=== PATIENT | male | born 1970 | race Caucasian/White ===

== ENCOUNTER 2017-09-25 21:22 | Emergency (ER) | payer SELFPAY ==
[~2017-09-25] VITALS: Ht 185.4 cm; Wt 106.6 kg
--- OUTSIDE RECORDS SUMMARY | 2017-09-25 21:28 | XMS REPORT ---
Author Author MANJIT SANTANA [facility] Address [address] [place] [address] Care Team Providers Care Email Manager Name Role Phone MANJIT SANTANA Unavailable PROBLEMS Type Condition ICD9-CM Code [id number] Code Onset Dates Condition Status SNOMED Code Problem Cramp of limb 729.82 Active 112876788 Problem Unspecified disorders of bursae and tendons in shoulder region 726.10 Active 82007726 Problem Lumbago 724.2 Active 083111291 Problem Anxiety state, unspecified 300.00 Active 823013191 Problem Nondependent tobacco use disorder 305.1 Active 608411444 Problem Acute upper respiratory infections of unspecified site 465.9 Active 45660590 Problem Unspecified backache 724.5 Active 658221365 Problem Depressive disorder, not elsewhere classified 311 Active 25735724 Problem Essential hypertension, benign 401.1 Active 7815789 Problem DTAP TEST V06.1 Active Problem Other, multiple, and unspecified sites, insect bite, nonvenomous, infected 919.5 Active 586412292 Problem Counseling for marital and partner problems, unspecified V61.10 Active 32746343 Problem Flat foot 734 Active 03842034 Problem Unspecified neuralgia, neuritis, and radiculitis 729.2 Active 53242991 Problem Headache 784.0 Active 79415081 Problem Cervicalgia 723.1 Active 52879566 Problem Other malaise and fatigue 780.79 Active 704146312 Problem Pain in joint, shoulder region 719.41 Active 328443137 ALLERGIES Unknown Allergies SOCIAL HISTORY No smoking Hx information available PLAN OF CARE VITAL SIGNS MEDICATIONS Unknown Medications RESULTS No Results PROCEDURES No Known procedures IMMUNIZATIONS No Known Immunizations
--- OUTSIDE RECORDS SUMMARY | 2017-09-25 21:28 | XMS REPORT ---
Author Author ESTELA CHEEMA Organization [employer] Address Unknown Phone Unavailable Care Team Providers Care Food Concession Manager Name Role Phone ESTELA CHEEMA CP Unavailable Allergies No Known Allergies Problems Problem Type Condition Code Onset Dates Condition Status Problem Flat foot 734 Active Problem Unspecified backache 724.5 Active Problem DTAP TEST V06.1 Active Problem Counseling for marital and partner problems, unspecified V61.10 Active Problem Other, multiple, and unspecified sites, insect bite, nonvenomous, infected 919.5 Active Problem Depressive disorder, not elsewhere classified 311 Active Problem Acute upper respiratory infections of unspecified site 465.9 Active Problem Unspecified neuralgia, neuritis, and radiculitis 729.2 Active Problem Anxiety state, unspecified 300.00 Active Problem Essential hypertension, benign 401.1 Active Problem Cervicalgia 723.1 Active Problem Headache 784.0 Active Assessment Generalized anxiety disorder F41.1 Active Problem Pain in joint, shoulder region 719.41 Active Problem Lumbago 724.2 Active Problem Unspecified disorders of bursae and tendons in shoulder region 726.10 Active Problem Nondependent tobacco use disorder 305.1 Active Problem Other malaise and fatigue 780.79 Active Problem Cramp of limb 729.82 Active Medications No Known Medications Procedures Procedure Coding System Code Date Psych diagnostic evaluation, established patient CPT-4 32974 Mar 17, 2016 Results No Known Results Summary Purpose [employer] Submission
--- OUTSIDE RECORDS SUMMARY | 2017-09-25 21:29 | XMS REPORT | Continuity of Care Document ---
Author Author [facility] Organization [facility] Address Unknown Phone Unavailable Allergies Active Description Code Type Severity Reaction Onset Reported/Identified Relationship to Patient Clinical Status Yes No Known Drug Allergies [id number] Drug Allergy Unknown N/A 05/06/2008 Yes Soma Drug Allergy 10/26/2011 Yes Soma Drug Allergy N/A N/A 10/26/2011 Medications There is no data. Problems Date Dx Coded Attending Type Code Diagnosis Diagnosed By 10/14/2011 MANJIT SANTANA APRN 465.9 UPPER RESPIRATORY INFECTION 10/14/2011 MANJIT SANTANA APRN 724.5 BACKACHE 10/14/2011 MANJIT SANTANA APRN 729.2 RADICULOPATHY 10/14/2011 CHYNA JOSE DO 465.9 UPPER RESPIRATORY INFECTION 10/14/2011 JOSE CHYNA CHAVES K 724.5 BACKACHE 10/14/2011 CHYNA JOSE DO 729.2 RADICULOPATHY 10/14/2011 465.9 UPPER RESPIRATORY INFECTION 10/14/2011 724.5 BACKACHE 10/14/2011 729.2 RADICULOPATHY 10/14/2011 465.9 UPPER RESPIRATORY INFECTION 10/14/2011 724.5 BACKACHE 10/14/2011 729.2 RADICULOPATHY 10/14/2011 465.9 UPPER RESPIRATORY INFECTION 10/14/2011 724.5 BACKACHE 10/14/2011 729.2 RADICULOPATHY 10/14/2011 CHYNA JOSE DO 465.9 UPPER RESPIRATORY INFECTION 10/14/2011 CHYNA JOSE DO K 724.5 BACKACHE 10/14/2011 CHYNA JOSE DO K 729.2 RADICULOPATHY 10/14/2011 CHYNA JOSE DO K 465.9 UPPER RESPIRATORY INFECTION 10/14/2011 JOSE CHYNA CHAVES K 724.5 BACKACHE 10/14/2011 JOSE DO, CHYNA K 729.2 RADICULOPATHY 10/14/2011 ESTHER WAITSTAFF CAPTAIN, MANJIT S 465.9 UPPER RESPIRATORY INFECTION 10/14/2011 ESTHER WAITSTAFF CAPTAIN, MANJIT S 724.5 BACKACHE 10/14/2011 ESTHER WAITSTAFF CAPTAIN, MANJIT S 729.2 RADICULOPATHY 10/14/2011 TIAN CASHERO WAITSTAFF CAPTAIN, BRIDGER N 465.9 UPPER RESPIRATORY INFECTION 10/14/2011 TIAN CASHERO WAITSTAFF CAPTAIN, BRIDGER N 724.5 BACKACHE 10/14/2011 TIAN CASHERO WAITSTAFF CAPTAIN, BRIDGER N 729.2 RADICULOPATHY 10/14/2011 JOSE DO, CHYNA K 465.9 UPPER RESPIRATORY INFECTION 10/14/2011 JOSE DO, CHYNA K 724.5 BACKACHE 10/14/2011 JOSE DO, CHYNA K 729.2 RADICULOPATHY 10/14/2011 JOSE DO, CHYNA K 465.9 UPPER RESPIRATORY INFECTION 10/14/2011 JOSE DO, CHYNA K 724.5 BACKACHE 10/14/2011 JOSE DO, CHYNA K 729.2 RADICULOPATHY 10/14/2011 ESTHER WAITSTAFF CAPTAIN, MANJIT S 465.9 UPPER RESPIRATORY INFECTION 10/14/2011 ESTHER WAITSTAFF CAPTAIN, MANJIT S 724.5 BACKACHE 10/14/2011 ESTHER WAITSTAFF CAPTAIN, MANJIT S 729.2 RADICULOPATHY 10/14/2011 LUIS M EUGENE APRN 465.9 UPPER RESPIRATORY INFECTION 10/14/2011 LUIS M EUGENE APRN 724.5 BACKACHE 10/14/2011 LUIS M EUGENE APRN 729.2 RADICULOPATHY 10/14/2011 ESTHER WAITSTAFF CAPTAIN, MANJIT S 465.9 UPPER RESPIRATORY INFECTION 10/14/2011 ESTHER WAITSTAFF CAPTAIN, MANJIT S 724.5 BACKACHE 10/14/2011 ESTHER WAITSTAFF CAPTAIN, MANJIT S 729.2 RADICULOPATHY 10/14/2011 JOSE DO, CHYNA K 465.9 UPPER RESPIRATORY INFECTION 10/14/2011 JOSE DO, CHYNA K 724.5 BACKACHE 10/14/2011 JOSE DO, CHYNA K 729.2 RADICULOPATHY 10/14/2011 LUIS M EUGENE APRN 465.9 UPPER RESPIRATORY INFECTION 10/14/2011 LUIS M EUGENE APRN 724.5 BACKACHE 10/14/2011 LUIS M EUGENE APRN 729.2 RADICULOPATHY 10/14/2011 LUIS M EUGENE APRN 465.9 UPPER RESPIRATORY INFECTION 10/14/2011 LUIS M EUGENE APRN 724.5 BACKACHE 10/14/2011 LUIS M EUGENE APRN 729.2 RADICULOPATHY 10/26/2011 MANJIT SANTANA APRN 719.41 PAIN IN JOINT INVOLVING SHOULDER REGION 10/26/2011 CHYNA JOSE DO K 719.41 PAIN IN JOINT INVOLVING SHOULDER REGION 10/26/2011 719.41 PAIN IN JOINT INVOLVING SHOULDER REGION 10/26/2011 719.41 PAIN IN JOINT INVOLVING SHOULDER REGION 10/26/2011 719.41 PAIN IN JOINT INVOLVING SHOULDER REGION 10/26/2011 CHYNA JOSE DO K 719.41 PAIN IN JOINT INVOLVING SHOULDER REGION 10/26/2011 CHYNA JOSE DO K 719.41 PAIN IN JOINT INVOLVING SHOULDER REGION 10/26/2011 MANJIT SANTANA APRN S 719.41 PAIN IN JOINT INVOLVING SHOULDER REGION 10/26/2011 BRIDGER FERNANDEZ APRN 719.41 PAIN IN JOINT INVOLVING SHOULDER REGION 10/26/2011 CHYNA JOSE DO K 719.41 PAIN IN JOINT INVOLVING SHOULDER REGION 10/26/2011 CHYNA JOSE DO K 719.41 PAIN IN JOINT INVOLVING SHOULDER REGION 10/26/2011 MANJIT SANTANA APRN S 719.41 PAIN IN JOINT INVOLVING SHOULDER REGION 10/26/2011 LUIS M EUGENE APRN 719.41 PAIN IN JOINT INVOLVING SHOULDER REGION 10/26/2011 MANJIT SANTANA APRN S 719.41 PAIN IN JOINT INVOLVING SHOULDER REGION 10/26/2011 CHYNA JOSE DO K 719.41 PAIN IN JOINT INVOLVING SHOULDER REGION 10/26/2011 LUIS M EUGENE APRN 719.41 PAIN IN JOINT INVOLVING SHOULDER REGION 10/26/2011 LUIS M EUGENE APRN 719.41 PAIN IN JOINT INVOLVING SHOULDER REGION 01/17/2012 MANJIT SANTANA APRN S 729.82 CRAMP OF LIMB 01/17/2012 ESTHER MORGAN, MANJIT S 734 FLAT FOOT 01/17/2012 JOSE DO, CHYNA K 729.82 CRAMP OF LIMB 01/17/2012 JOSE DO, CHYNA K 734 FLAT FOOT 01/17/2012 729.82 CRAMP OF LIMB 01/17/2012 734 FLAT FOOT 01/17/2012 729.82 CRAMP OF LIMB 01/17/2012 734 FLAT FOOT 01/17/2012 729.82 CRAMP OF LIMB 01/17/2012 734 FLAT FOOT 01/17/2012 JOSE DO, CHYNA K 729.82 CRAMP OF LIMB 01/17/2012 JOSE DO, CHYNA K 734 FLAT FOOT 01/17/2012 JOSE DO, CHYNA K 729.82 CRAMP OF LIMB 01/17/2012 JOSE DO, CHYNA K 734 FLAT FOOT 01/17/2012 ESTHER MORGAN, MANJIT S 729.82 CRAMP OF LIMB 01/17/2012 ESTHER MORGAN, MANJIT S 734 FLAT FOOT 01/17/2012 TIAN CASHERO WAITSTAFF CAPTAIN, BRIDGER N 729.82 CRAMP OF LIMB 01/17/2012 TIAN CASHERO WAITSTAFF CAPTAIN, BRIDGER N 734 FLAT FOOT 01/17/2012 JOSE DO, CHYNA K 729.82 CRAMP OF LIMB 01/17/2012 JOSE DO, CHYNA K 734 FLAT FOOT 01/17/2012 JOSE DO, CHYNA K 729.82 CRAMP OF LIMB 01/17/2012 JOSE DO, CHYNA K 734 FLAT FOOT 01/17/2012 ESTHER MORGAN, MANJIT S 729.82 CRAMP OF LIMB 01/17/2012 ESTHER BOSEN MANJIT S 734 FLAT FOOT 01/17/2012 EUGENE WAITSTAFF CAPTAINALEXANDREA SanchesON D 729.82 CRAMP OF LIMB 01/17/2012 JABIER MORGAN LUIS M D 734 FLAT FOOT 01/17/2012 ESTHER MORGAN MANJIT S 729.82 CRAMP OF LIMB 01/17/2012 ESTHER WAITSTAFF CAPTAIN, MANJIT S 734 FLAT FOOT 01/17/2012 JOSE DO, CHYNA K 729.82 CRAMP OF LIMB 01/17/2012 JOSE DO, CHYNA K 734 FLAT FOOT 01/17/2012 LUIS M EUGENE APRN 729.82 CRAMP OF LIMB 01/17/2012 LUIS M EUGENE APRN 734 FLAT FOOT 01/17/2012 LUIS M EUGENE APRN 729.82 CRAMP OF LIMB 01/17/2012 LUIS M EUGENE APRN 734 FLAT FOOT 03/23/2012 ESTHER MORGAN MANJIT S 723.1 CERVICALGIA 03/23/2012 ANANT SANTANA APRNNDA S 784.0 HEADACHE 03/23/2012 JOSE DO, CHYNA K 723.1 CERVICALGIA 03/23/2012 JOSE DO, CHYNA K 784.0 HEADACHE 03/23/2012 723.1 CERVICALGIA 03/23/2012 784.0 HEADACHE 03/23/2012 723.1 CERVICALGIA 03/23/2012 784.0 HEADACHE 03/23/2012 723.1 CERVICALGIA 03/23/2012 784.0 HEADACHE 03/23/2012 JOSE DO, CHYNA K 723.1 CERVICALGIA 03/23/2012 JOSE DO, CHYNA K 784.0 HEADACHE 03/23/2012 JOSE DO, CHYNA K 723.1 CERVICALGIA 03/23/2012 JSOE DO, CHYNA K 784.0 HEADACHE 03/23/2012 ESTHER MORGAN, MANJIT S 723.1 CERVICALGIA 03/23/2012 ESTHER MORGAN MANJIT S 784.0 HEADACHE 03/23/2012 JAYLAN BRANDT APRN, BRIDGER N 723.1 CERVICALGIA 03/23/2012 JAYLAN BRANDT APRN BRIDGER N 784.0 HEADACHE 03/23/2012 JOSE DO, CHYNA K 723.1 CERVICALGIA 03/23/2012 JOSE DO, CHYNA K 784.0 HEADACHE 03/23/2012 JOSE DO, CHYNA K 723.1 CERVICALGIA 03/23/2012 JOSE DO, CHYNA K 784.0 HEADACHE 03/23/2012 ESTHER MORGAN MANJIT S 723.1 CERVICALGIA 03/23/2012 ESTHER MORGAN MANJIT S 784.0 HEADACHE 03/23/2012 LUIS M EUGENE APRN 723.1 CERVICALGIA 03/23/2012 LUIS M EUGENE APRN 784.0 HEADACHE 03/23/2012 ESTHER MORGAN MANJIT S 723.1 CERVICALGIA 03/23/2012 ESTHER MORGAN MANJIT S 784.0 HEADACHE 03/23/2012 JOSE DO, CHYNA K 723.1 CERVICALGIA 03/23/2012 JOSE DO, CHYNA K 784.0 HEADACHE 03/23/2012 EUGENE WAITSTAFF CAPTAIN, LUIS M D 723.1 CERVICALGIA 03/23/2012 EUGENE WAITSTAFF CAPTAIN, LUIS M D 784.0 HEADACHE 03/23/2012 EUGENE WAITSTAFF CAPTAIN, LUIS M D 723.1 CERVICALGIA 03/23/2012 EUGENE WAITSTAFF CAPTAIN, LUIS M D 784.0 HEADACHE 08/15/2012 ANANT SANTANA APRNNDA S 300.00 ANXIETY STATE UNSPECIFIED 08/15/2012 ESTHER MORGAN MANJIT S 401.1 HYPERTENSION, BENIGN ESSENTIAL 08/15/2012 JOSE DO, CHYNA K 300.00 ANXIETY STATE UNSPECIFIED 08/15/2012 JOSE DO, CHYNA K 401.1 HYPERTENSION, BENIGN ESSENTIAL 08/15/2012 300.00 ANXIETY STATE UNSPECIFIED 08/15/2012 401.1 HYPERTENSION, BENIGN ESSENTIAL 08/15/2012 300.00 ANXIETY STATE UNSPECIFIED 08/15/2012 401.1 HYPERTENSION, BENIGN ESSENTIAL 08/15/2012 300.00 ANXIETY STATE UNSPECIFIED 08/15/2012 401.1 HYPERTENSION, BENIGN ESSENTIAL 08/15/2012 JOSE DO, CHYNA K 300.00 ANXIETY STATE UNSPECIFIED 08/15/2012 JOSE DO, CHYNA K 401.1 HYPERTENSION, BENIGN ESSENTIAL 08/15/2012 JOSE DO, CHYNA K 300.00 ANXIETY STATE UNSPECIFIED 08/15/2012 JOSE DO, CHYNA K 401.1 HYPERTENSION, BENIGN ESSENTIAL 08/15/2012 ESTHER MORGAN MANJIT S 300.00 ANXIETY STATE UNSPECIFIED 08/15/2012 ANANT SANTANA APRNNDA S 401.1 HYPERTENSION, BENIGN ESSENTIAL 08/15/2012 TIAN CASHERO WAITSTAFF CAPTAIN, BRIDGER N 300.00 ANXIETY STATE UNSPECIFIED 08/15/2012 TIAN CASHERO WAITSTAFF CAPTAIN, BRIDGER N 401.1 HYPERTENSION, BENIGN ESSENTIAL 08/15/2012 JOSE DO, CHYNA K 300.00 ANXIETY STATE UNSPECIFIED 08/15/2012 JOSE DO, CHYNA K 401.1 HYPERTENSION, BENIGN ESSENTIAL 08/15/2012 JOSE DO, CHYNA K 300.00 ANXIETY STATE UNSPECIFIED 08/15/2012 JOSE DO, CHYNA K 401.1 HYPERTENSION, BENIGN ESSENTIAL 08/15/2012 ESTHER WAITSTAFF CAPTAIN, MANJIT S 300.00 ANXIETY STATE UNSPECIFIED 08/15/2012 ESTHER WAITSTAFF CAPTAIN, MANJIT S 401.1 HYPERTENSION, BENIGN ESSENTIAL 08/15/2012 ALEXANDREA EUGENE APRNON D 300.00 ANXIETY STATE UNSPECIFIED 08/15/2012 ALEXANDREA EUGENE APRNON D 401.1 HYPERTENSION, BENIGN ESSENTIAL 08/15/2012 ESTHER WAITSTAFF CAPTAIN, MANJIT S 300.00 ANXIETY STATE UNSPECIFIED 08/15/2012 ESTHER WAITSTAFF CAPTAIN MANJIT S 401.1 HYPERTENSION, BENIGN ESSENTIAL 08/15/2012 JOSE DO, CHYNA K 300.00 ANXIETY STATE UNSPECIFIED 08/15/2012 JOSE DO, CHYNA K 401.1 HYPERTENSION, BENIGN ESSENTIAL 08/15/2012 ALEXANDREA EUGENE APRNON D 300.00 ANXIETY STATE UNSPECIFIED 08/15/2012 LUIS M EUGENE APRN 401.1 HYPERTENSION, BENIGN ESSENTIAL 08/15/2012 ALEXANDREA EUGENE APRNON D 300.00 ANXIETY STATE UNSPECIFIED 08/15/2012 ALEXANDREA EUGENE APRNON D 401.1 HYPERTENSION, BENIGN ESSENTIAL 09/06/2012 311 DEPRESSIVE DISORDER NOS 09/06/2012 V61.10 RL RELATION COUNS 09/06/2012 311 DEPRESSIVE DISORDER NOS 09/06/2012 V61.10 RL RELATION COUNS 09/06/2012 311 DEPRESSIVE DISORDER NOS 09/06/2012 V61.10 RL RELATION COUNS 09/06/2012 JOSE DO, CHYNA K 311 DEPRESSIVE DISORDER NOS 09/06/2012 JOSE DO, CHYNA K V61.10 RL RELATION COUNS 09/06/2012 JOSE DO, CHYNA K 311 DEPRESSIVE DISORDER NOS 09/06/2012 JOSE DO, CHYNA K V61.10 RL RELATION COUNS 09/06/2012 ESTHER WAITSTAFF CAPTAIN, MANJIT S 311 DEPRESSIVE DISORDER NOS 09/06/2012 ESTHER WAITSTAFF CAPTAIN, MANJIT S V61.10 RL RELATION COUNS 09/06/2012 PETER FERNANDEZ APRNCY N 311 DEPRESSIVE DISORDER NOS 09/06/2012 TIANTANNA BRANDT APRN, BRIDGER N V61.10 RL RELATION COUNS 09/06/2012 JOSE DO, CHYNA K 311 DEPRESSIVE DISORDER NOS 09/06/2012 JOSE DO, CHYNA K V61.10 RL RELATION COUNS 09/06/2012 JOSE DO, CHYNA K 311 DEPRESSIVE DISORDER NOS 09/06/2012 JOSE DO, CHYNA K V61.10 RL RELATION COUNS 09/06/2012 ANANT SANTANA APRNNDA S 311 DEPRESSIVE DISORDER NOS 09/06/2012 ESTHER MORGAN MANJIT S V61.10 RL RELATION COUNS 09/06/2012 LUIS M EUGENE APRN 311 DEPRESSIVE DISORDER NOS 09/06/2012 LUIS M EUGENE APRN V61.10 RL RELATION COUNS 09/06/2012 ANANT SANTANA APRNNDA S 311 DEPRESSIVE DISORDER NOS 09/06/2012 ESTHER MORGAN MANJIT S V61.10 RL RELATION COUNS 09/06/2012 JOSE DO, CHYNA K 311 DEPRESSIVE DISORDER NOS 09/06/2012 JOSE DO, CHYNA K V61.10 RL RELATION COUNS 09/06/2012 LUIS M EUGENE APRN 311 DEPRESSIVE DISORDER NOS 09/06/2012 LUIS M EUGENE APRN V61.10 RL RELATION COUNS 09/06/2012 LUIS M EUGENE APRN 311 DEPRESSIVE DISORDER NOS 09/06/2012 LUIS M EUGENE APRN V61.10 RL RELATION COUNS 11/20/2013 MANJIT SANTANA APRN S 305.1 NONDEPENDENT TOBACCO USE DISORDER 11/20/2013 MANJIT SANTANA APRN S 724.2 LUMBAGO/ LOW BACK PAIN 11/20/2013 BRIDGER FERNANDEZ APRN N 305.1 NONDEPENDENT TOBACCO USE DISORDER 11/20/2013 BRIDGER FERNANDEZ APRN N 724.2 LUMBAGO/ LOW BACK PAIN 11/20/2013 JOSE DO, CHYNA K 305.1 NONDEPENDENT TOBACCO USE DISORDER 11/20/2013 JOSE DO, CHYNA K 724.2 LUMBAGO/ LOW BACK PAIN 11/20/2013 JOSE DO, CHYNA K 305.1 NONDEPENDENT TOBACCO USE DISORDER 11/20/2013 JOSE DO, CHYNA K 724.2 LUMBAGO/ LOW BACK PAIN 11/20/2013 MANJIT SANTANA APRN S 305.1 NONDEPENDENT TOBACCO USE DISORDER 11/20/2013 ESTHER WAITSTAFF CAPTAIN, MANJIT S 724.2 LUMBAGO/ LOW BACK PAIN 11/20/2013 LUIS M EUGENE APRN 305.1 NONDEPENDENT TOBACCO USE DISORDER 11/20/2013 LUIS M EUGENE APRN 724.2 LUMBAGO/ LOW BACK PAIN 11/20/2013 PRANEETH SANTANA APRNA S 305.1 NONDEPENDENT TOBACCO USE DISORDER 11/20/2013 MANJIT SANTANA APRN S 724.2 LUMBAGO/ LOW BACK PAIN 11/20/2013 JOSE DO CHYNA K 305.1 NONDEPENDENT TOBACCO USE DISORDER 11/20/2013 JOSE DO CHYNA K 724.2 LUMBAGO/ LOW BACK PAIN 11/20/2013 LUIS M EUGENE APRN 305.1 NONDEPENDENT TOBACCO USE DISORDER 11/20/2013 LUSI M EUGENE APRN 724.2 LUMBAGO/ LOW BACK PAIN 11/20/2013 LUIS M EUGENE APRN 305.1 NONDEPENDENT TOBACCO USE DISORDER 11/20/2013 LUIS M EUGENE APRN 724.2 LUMBAGO/ LOW BACK PAIN 01/08/2014 JYALAN BRANDT APRN, BRIDGER N 919.5 INSECT BITE NONVENOMOUS OF OTHER MULTIPLE AND UNSPECIFIED SITES INFECTED 01/08/2014 JOSE DO CHYNA K 919.5 INSECT BITE NONVENOMOUS OF OTHER MULTIPLE AND UNSPECIFIED SITES INFECTED 01/08/2014 JOSE DO CHYNA K 919.5 INSECT BITE NONVENOMOUS OF OTHER MULTIPLE AND UNSPECIFIED SITES INFECTED 01/08/2014 MANJIT SANTANA APRN S 919.5 INSECT BITE NONVENOMOUS OF OTHER MULTIPLE AND UNSPECIFIED SITES INFECTED 01/08/2014 LUIS M EUGENE APRN 919.5 INSECT BITE NONVENOMOUS OF OTHER MULTIPLE AND UNSPECIFIED SITES INFECTED 01/08/2014 PRANEETH SANTANA APRNA S 919.5 INSECT BITE NONVENOMOUS OF OTHER MULTIPLE AND UNSPECIFIED SITES INFECTED 01/08/2014 REBECA DO CHYNA K 919.5 INSECT BITE NONVENOMOUS OF OTHER MULTIPLE AND UNSPECIFIED SITES INFECTED 01/08/2014 LUIS M EUGENE APRN 919.5 INSECT BITE NONVENOMOUS OF OTHER MULTIPLE AND UNSPECIFIED SITES INFECTED 01/08/2014 LUIS M EUGENE APRN 919.5 INSECT BITE NONVENOMOUS OF OTHER MULTIPLE AND UNSPECIFIED SITES INFECTED 02/14/2014 CHYNA JOSE DO K V06.1 TDAP DX 02/14/2014 MANJIT SANTANA APRN S V06.1 TDAP DX 02/14/2014 LUIS M EUGENE APRN V06.1 TDAP DX 02/14/2014 MANJIT SANTANA APRN S V06.1 TDAP DX 02/14/2014 CHYNA JOSE DO K V06.1 TDAP DX 02/14/2014 LUIS M EUGENE APRN V06.1 TDAP DX 02/14/2014 LUIS M EUGENE APRN V06.1 TDAP DX 07/22/2014 MANJIT SANTANA APRN S 719.41 PAIN- SHOULDER 07/22/2014 MANJIT SANTANA APRN S 780.79 FATIGUE 07/22/2014 JOSE CHYNA CHAVES K 719.41 PAIN- SHOULDER 07/22/2014 CHYNA JOSE DO K 780.79 FATIGUE 07/22/2014 LUIS M EUGENE APRN 719.41 PAIN- SHOULDER 07/22/2014 LUIS M EUGENE APRN 780.79 FATIGUE 07/22/2014 LUIS M EUGENE APRN 719.41 PAIN- SHOULDER 07/22/2014 LUIS M EUGENE APRN 780.79 FATIGUE 08/22/2014 LUIS M EUGENE APRN 726.10 DISORDERS OF BURSAE AND TENDONS IN SHOULDER REGION UNSPECIFIED Procedures Code Description [place] [address] ROUTINE VENIPUNCTURE 08/15/2012 28725 LIPID PANEL 08/15/2012 JOINT INJECTION- INTERMEDIATE JOINT 08/24/2012 09583 RELATIONSHIP COUN 1/2 09/07/2012 JOINT INJECTION- INTERMEDIATE JOINT 04/05/2013 JOINT INJECTION- INTERMEDIATE JOINT 07/19/2013 JOINT INJECTION- INTERMEDIATE JOINT 10/25/2013 11329 ROUTINE VENIPUNCTURE 11/20/2013 55235 CBC 11/20/2013 [id number] GFR CALC (RESULT ONLY) 11/20/2013 65114 CMP 11/20/2013 74747 LIPID PANEL 11/20/2013 20949 TSH 11/20/2013 JOINT INJECTION- INTERMEDIATE JOINT 02/14/2014 JOINT INJECTION- INTERMEDIATE JOINT 05/02/2014 J1040 DEPO MEDROL 80 MG INJ 05/02/2014 16834 ROUTINE VENIPUNCTURE 07/22/2014 32770 CBC 07/22/2014 91913 TESTOSTERONE TOTAL MALES 07/22/2014 99520 THERAPUTIC INJ SQ/IM 07/26/2014 45883 MRI EXTREMITY, UPPER RIGHT, W/O CONTRAST 07/29/2014 J1070 testosterone cypionate 100 mg/mL oil 07/29/2014 JOINT INJECTION- INTERMEDIATE JOINT 08/15/2014 Results There is no data. Encounters ACCT No. Visit Date/Time Discharge Status Pt. Type Provider Facility Loc./Unit Complaint [id number] 08/06/2014 10:47:00 08/06/2014 23:59:59 CLS Outpatient MANJIT SANTANA [facility] [id number] 08/22/2014 11:54:00 08/22/2014 23:59:59 CLS Outpatient LUIS M EUGENE APRN [id number] 08/15/2014 15:28:00 08/15/2014 23:59:59 CLS Outpatient LUIS M EUGENE APRN [id number] 07/26/2014 17:03:00 07/26/2014 23:59:59 CLS Outpatient CHYNA JOSE DO [id number] 07/22/2014 12:41:00 07/22/2014 23:59:59 CLS Outpatient MANJIT SATNANA APRN [id number] 05/02/2014 15:26:00 05/02/2014 23:59:59 CLS Outpatient LUIS M EUGENE APRN [id number] 04/02/2014 11:38:00 04/02/2014 23:59:59 CLS Outpatient MANJIT SANTANA APRN [id number] 02/14/2014 13:17:00 02/14/2014 23:59:59 CLS Outpatient CHYNA JOSE DO [id number] 02/14/2014 12:46:00 02/14/2014 23:59:59 CLS Outpatient CHYNA JOSE DO [id number] 01/08/2014 10:07:00 01/08/2014 23:59:59 CLS Outpatient BRIDGER FERNANDEZ APRN [id number] 11/20/2013 08:41:00 11/20/2013 23:59:59 CLS Outpatient MANJIT SANTANA APRN [id number] 10/25/2013 13:00:00 10/25/2013 23:59:59 CLS Outpatient CHYNA JOSE DO [id number] 07/19/2013 13:53:00 07/19/2013 23:59:59 CLS Outpatient CHYNA JOSE DO [id number] 09/06/2012 14:01:00 09/06/2012 23:59:59 CLS Outpatient [id number] 08/24/2012 12:28:00 08/24/2012 23:59:59 CLS Outpatient CHYNA JOSE DO [id number] 08/15/2012 08:43:00 08/15/2012 23:59:59 CLS Outpatient MANJIT SANTANA APRN [id number] 04/05/2013 12:46:00 Document Registration [id number] 12/28/2012 17:26:00 Document Registration
[2017-09-25 22:47] LABS: BASOPHILS # (AUTO) 0.1 10^3/uL (0.0-0.1); BASOPHILS % (AUTO) 1 % (0-10); EOSINOPHILS # (AUTO) 0.3 10^3/uL (0.0-0.3); EOSINOPHILS % (AUTO) 4 % (0-10); HEMATOCRIT 45 % (40-54); HEMOGLOBIN 15.7 G/DL (13.3-17.7); LYMPHOCYTES # (AUTO) 2.3 X 10^3 (1.0-4.0); LYMPHOCYTES % (AUTO) 30 % (12-44); MEAN CORPUSCULAR HEMOGLOBIN 33 PG (25-34); MEAN CORPUSCULAR HGB CONC 35 G/DL (32-36); MEAN CORPUSCULAR VOLUME 96 FL (80-99); MEAN PLATELET VOLUME 10.2 FL (7.4-10.4); MONOCYTES # (AUTO) 0.7 X 10^3 (0.0-1.0); MONOCYTES % (AUTO) 9 % (0-12); NEUTROPHILS # (AUTO) 4.3 X 10^3 (1.8-7.8); NEUTROPHILS % (AUTO) 56 % (42-75); PLATELET COUNT 219 10^3/uL (130-400); RED BLOOD COUNT 4.72 10^6/uL (4.35-5.85); RED CELL DISTRIBUTION WIDTH 12.6 % (10.0-14.5); WHITE BLOOD COUNT 7.6 10^3/uL (4.3-11.0)
[2017-09-25 23:02] LABS: ALANINE AMINOTRANSFERASE 23 U/L (0-55); ALBUMIN 4.6 GM/DL (3.2-4.5); ALKALINE PHOSPHATASE 122 U/L (40-136); BILIRUBIN,TOTAL 0.7 MG/DL (0.1-1.0); BUN/CREATININE RATIO 14; CARBON DIOXIDE 22 MMOL/L (21-32); CHLORIDE 101 MMOL/L (98-107); CREATINE KINASE 150 U/L (30-200); CREATININE SERUM 0.81 MG/DL (0.60-1.30); GFR ESTIMATED > 60; GLUCOSE 90 MG/DL (70-105); POTASSIUM 3.9 MMOL/L (3.6-5.0); SODIUM 135 MMOL/L (135-145); TOTAL PROTEIN 8.6 GM/DL (6.4-8.2)
[2017-09-25 23:23] LABS: CREATINE KINASE MB 1.6 NG/ML (<6.6); TSH (THYROID ANALYZER) 5.23 UIU/ML (0.35-4.94)
--- NOTE | 2017-09-25 23:53 | ED Neck-Back Pain/Injury ---
General Chief Complaint: General Problems/Pain Stated Complaint: BP 168/114 TOOK BP AT [facility] ON MACHINE Nursing Triage Note: PATIENT STATES THAT HE IS HAVING BACK AND NECK PAIN. HE SAYS HE HAS SEVERLA HERNIATED DISCS. HIS LEFT ARM AND LEFT GREAT TOE FEEL NUMB (PINS AND NEEDLES). PAIN IN NECK AND BACK IS 6/10. HE CHECK[facility] AND IT WAS 168/114. Nursing Sepsis Screen: No Definite Risk Source of Information: Patient Exam Limitations: No Limitations (DALE DOBBINS) History of Present Illness Date Seen by Provider: Sep 25, 2017 Time Seen by Provider: 22:05 Initial Comments 47-year-old male patient presents to the emergency Department with reports of neck pain and back pain radiating down the left arm and left lower extremity. States he has pins and needle feelings in the left hand and left great toe. Has previous history of multiple injuries to the neck and back. 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 Denies any recent known injury. Patient states he also has to known rotator cuff tears. States he has not been able to afford to have the rotator cuff is repaired or to have any further procedures to the neck and back for chronic problems. States he has known herniated disks of the neck and back. Patient does report taking his blood pressure at [facility] and was noted to be 168/114. Patient does have a history of hypertension, but states he has not been on medication for approximately 2 years. Denies chest pain or shortness of air. Denies headache or dizziness. Location: C-Spine, Lumbar Spine, Paraspinous Muscles Timing/Duration: Other (patient reports chronic pain in symptoms, worse over the last week) Pain/Injury Location: Back, Lower Extremity, Upper Extremity, Neck Modifying Factors: Worse With Movement Associated Symptoms: muscle spasms, No fever, No weakness, numbness in legs/ feet, tingling in legs/feet, No sensory/motor loss, lower back pain, No loss of bladder control, No loss of bowel control (DALE DOBBINS) Allergies and Home Medications Allergies Coded Allergies: No Known Drug Allergies (Verified Allergy, Unknown, 05/06/08) Home Medications Cyclobenzaprine HCl 10 Mg Tablet, 10 MG PO Q8H PRN for SPASMS Prescribed by: DALE DOBBINS on 2/26/18 0004 Naproxen 500 Mg Tablet, 500 MG PO BID Prescribed by: DALE DOBBINS on 09/26/173 Prednisone 20 Mg Tab, 40 MG PO DAILY Prescribed by: DALE DOBBINS on 09/26/173 Constitutional: no symptoms reported EENTM: no symptoms reported Respiratory: no symptoms reported Cardiovascular: no symptoms reported Gastrointestinal: no symptoms reported Genitourinary: no symptoms reported Musculoskeletal: see HPI Skin: no symptoms reported Psychiatric/Neurological: See HPI (DALE DOBBINS) All Other Systems Reviewed Negative Unless Noted: Yes (Negative excepted noted.) (DALE DOBBINS) Past Zwjekit-Newpgg-Bsqlkv Hx Patient Social History Alcohol Use: Regular Use Number of Drinks Today: 3 Alcohol Beverage of Choice: Beer Recreational Drug Use: Yes (marijuana) Smoking Status: Current Everyday Smoker Type Used: Cigarettes 2nd Hand Smoke Exposure: Yes Recent Foreign Travel: No Contact w/Someone Who Travel: No Recent Infectious Disease Expo: No Recent Hopitalizations: No Physical Abuse: No Sexual Abuse: No (DALE DOBBINS) Seasonal Allergies Seasonal Allergies: No (DALE DOBBINS) Surgeries History of Surgeries: No (DALE DOBBINS) Respiratory History of Respiratory Disorde: No (DALE DOBBINS) Cardiovascular History of Cardiac Disorders: Yes Cardiac Disorders: Hypertension (DALE DOBBINS) Neurological History of Neurological Disord: Yes (herniated disc) (DALE DOBBINS) Reproductive System Hx Reproductive Disorders: No (DALE DOBBINS) Gastrointestinal History of Gastrointestinal Di: No (DALE DOBBINS) Musculoskeletal History of Musculoskeletal Dis: No (DALE DOBBINS) Endocrine History of Endocrine Disorders: No (DALE DOBBINS) Cancer History of Cancer: No (DALE DOBBINS) Psychosocial History of Psychiatric Problem: No Suicide Risk Score: 0 (DALE DOBBINS) Integumentary History of Skin or Integumenta: No (DALE DOBBINS) Blood Transfusions History of Blood Disorders: No (DALE DOBBINS) Reviewed Nursing Assessment Reviewed/Agree w Nursing PMH: Yes (DALE DOBBINS) Family Medical History Significant Family History: No Pertinent Family Hx (DALE DOBBINS) Physical Exam Vital Signs Vital Signs - First Documented 09/25/17 21:40 Temp 98.0 Pulse 86 Resp 20 B/P (MAP) 148/110 (123) Pulse Ox 96 O2 Delivery Room Air (STEPHANIE SIMS) Vital Signs Capillary Refill : Less Than 3 Seconds (DALE DOBBINS) General Appearance: No Apparent Distress, WD/WN HEENT: PERRL/EOMI, TMs Normal, Normal ENT Inspection, Pharynx Normal Neck: Normal Inspection, Supple, No Carotid Bruit, Limited Range of Motion, Tender Lateral, Tender Midline Cardiovascular: Regular Rate, Rhythm, No Edema, No Gallop, No JVD, No Murmur, Normal Peripheral Pulses Respiratory: Lungs Clear, Normal Breath Sounds, No Accessory Muscle Use, No Respiratory Distress Peripheral Pulses: 2+ Carotid (R), 2+ Carotid (L), 2+ Dorsalis Pedis (R), 2+ Left Dors-Pedis (L), 2+ Radial Pulses (R), 2+ Radial Pulses (L) Gastrointestinal: Normal Bowel Sounds, No Organomegaly, Non Tender, Soft Back: Normal Inspection, No Vertebral Tenderness Extremity: Normal Capillary Refill, Normal Inspection, No Calf Tenderness, No Pedal Edema, Other (left upper extremity tender to palpation. Bilateral upper extremity abduction 0-80. (Consistent with known rotator cuff injury bilaterally). Tenderness of the left great toe without evidence of ecchymosis, deformity, or swelling.) Neurologic/Psychiatric: Alert, Oriented x3, No Motor/Sensory Deficits, Normal Mood/Affect, matte cutter II-XII Norm as Tested Skin: Normal Color, Warm/Dry (DALE DOBBINS) Progress/Results/Core Measures Results/Orders Lab Results Laboratory Tests Test 09/25/17 22:35 Range/Units White Blood Count 7.6 4.3-11.0 10^3/uL Red Blood Count 4.72 4.35-5.85 10^6/uL Hemoglobin 15.7 13.3-17.7 G/DL Hematocrit 45 40-54 % Mean Corpuscular Volume 96 80-99 FL Mean Corpuscular Hemoglobin 33 25-34 PG Mean Corpuscular Hemoglobin Concent 35 32-36 G/DL Red Cell Distribution Width 12.6 10.0-14.5 % Platelet Count 219 130-400 10^3/uL Mean Platelet Volume 10.2 7.4-10.4 FL Neutrophils (%) (Auto) 56 42-75 % Lymphocytes (%) (Auto) 30 12-44 % Monocytes (%) (Auto) 9 0-12 % Eosinophils (%) (Auto) 4 0-10 % Basophils (%) (Auto) 1 0-10 % Neutrophils # (Auto) 4.3 1.8-7.8 X 10^3 Lymphocytes # (Auto) 2.3 1.0-4.0 X 10^3 Monocytes # (Auto) 0.7 0.0-1.0 X 10^3 Eosinophils # (Auto) 0.3 0.0-0.3 10^3/uL Basophils # (Auto) 0.1 0.0-0.1 10^3/uL Sodium Level 135 135-145 MMOL/L Potassium Level 3.9 3.6-5.0 MMOL/L Chloride Level 101 98-107 MMOL/L Carbon Dioxide Level 22 21-32 MMOL/L Anion Gap 12 5-14 MMOL/L Blood Urea Nitrogen 11 7-18 MG/DL Creatinine 0.81 0.60-1.30 MG/DL Estimat Glomerular Filtration Rate > 60 BUN/Creatinine Ratio 14 Glucose Level 90 70-105 MG/DL Calcium Level 10.0 8.5-10.1 MG/DL Magnesium Level 2.0 1.8-2.4 MG/DL Total Bilirubin 0.7 0.1-1.0 MG/DL Aspartate Amino Transf (AST/SGOT) 20 5-34 U/L Alanine Aminotransferase (ALT/SGPT) 23 0-55 U/L Alkaline Phosphatase 122 40-136 U/L Total Creatine Kinase 150 30-200 U/L Creatine Kinase MB 1.6 <6.6 NG/ML Troponin I < 0.30 <0.30 NG/ML Total Protein 8.6 H 6.4-8.2 GM/DL Albumin 4.6 H 3.2-4.5 GM/DL Free Thyroxine 1.02 0.70-1.48 NG/DL TSH [place] Testing 5.23 H 0.35-4.94 UIU/ML (STEPHANIE SIMS) Vital Signs/I&O Vital Sign - Last 12Hours 09/25/17 09/26/17 21:40 00:28 Temp 98.0 98.0 Pulse 86 86 Resp 20 20 B/P (MAP) 148/110 (123) 148/110 (123) Pulse Ox 96 96 O2 Delivery Room Air (STEPHAINE SIMS) Blood Pressure Mean: 123 Progress Note : Time: 11:36 Progress Note There is a discrepancy report on the CT head and C-spine that noted a posterior clavicular 2.5 cm nodule on the left that can't be ruled out as a nodule possible [place]ch[place] etc. I discussed this with him and that he should talk to his primary care physician about having this worked up. He says he is going to get an appointment this week Tuesday or with Salty Melgar is PCP and that he will mention this to have him review the amended imaging report and follow- up on it. (STEPHANIE SIMS) Diagnostic Imaging Diagonstic Imaging: CT Plain Films/CT/US/NM/MRI: c-spine Comments No Evidence of acute fracture or subluxation. Multilevel spondylotic changes. Reviewed: Reviewed [facility] Study Diagonstic Imaging: CT Plain Films/CT/US/NM/MRI: other (lumbar spine) Comments No evidence of fracture or spinal listhesis. Multilevel spondylotic changes. Reviewed: Reviewed [facility] Study (DALE DOBBINS) Departure Communication (Admissions) Progress Notes Diagnostic findings discussed with the patient. Plan for discharge to home with a prescription for prednisone, Flexeril, and Naprosyn. Patient to follow- up with [facility] for recheck and to schedule outpatient MRI of the cervical and lumbar spine. Blood pressure at the time of discharge is 136/94 mmHg. Patient to discuss blood pressure with his provider at [facility]. Return precautions were discussed with the patient as described in the discharge instructions of this report. Patient verbalizes understanding and agrees with the treatment plan. Patient ambulated from the emergency department without difficulty. (DALE DOBBINS) Impression Impression: Primary Impression: Lumbar radiculopathy Additional Impressions: Cervical radiculopathy History of hypertension Disposition: 01 HOME, SELF-CARE Condition: Improved Departure-Patient Inst. Decision time for Depature: 00:02 (DALE DOBBINS) Referrals: MANJIT SANTANA (PCP) Primary Care Physician [facility] (Family) Primary Care Physician Patient Instructions: High Blood Pressure (DC), Radiculopathy (DC) Add. Discharge Instructions: All discharge instructions reviewed with patient and/or family. Voiced understanding. Medications as instructed. Tylenol extra strength over-the- counter as directed for pain. Avoid heavy lifting, pushing, pulling, twisting, bending, climbing until seen by your family practitioner. You may use a heating pad or ice pack as needed for pain. Check your blood pressure daily intake a list of the readings with you to her follow-up appointment at [facility]. Follow-up with Salty Melgar this week for recheck and to schedule outpatient MRI of the neck and low back. Call tomorrow morning for appointment time. Return to the emergency department for worsened symptoms, bowel incontinence, bladder incontinence, headache, fever, chest pain, shortness of air, seizure, numbness of the genitals, or any other concerns. Scripts Prednisone (Prednisone) 20 Mg Tab 40 MG PO DAILY, #10 TAB 0 Refills Prov: DALE DOBBINS 09/26/17 Naproxen (Naprosyn) 500 Mg Tablet 500 MG PO BID, #20 TAB 0 Refills Prov: DALE DOBBINS 09/26/17 Cyclobenzaprine HCl (Cyclobenzaprine HCl) 10 Mg Tablet 10 MG PO Q8H Y for SPASMS, #14 TAB 0 Refills Prov: DALE DOBBINS 09/26/17 DALE DOBBINS Sep 25, 2017 23:53 STEPHANIE SIMS Sep 26, 2017 11:38
[2017-09-25 23:58] LABS: FREE T4 (FREE THYROXINE) 1.02 NG/DL (0.70-1.48)
[2017-09-26] MEDS ORDERED: RX-CYCLOBENZAPRINE 10 MG (FLEXERIL) TAB PPK#3 PO STA
[2017-09-26] MEDS ORDERED: KETOROLAC 30 MG/ML VIAL IVP STA
[2017-09-26] MEDS ORDERED: DEXAMETHASONE PF 10 MG/ML (DECADRON) VIAL IV STA
[2017-09-26] MEDS ORDERED: PRD20T PO (00:04)
[2017-09-26] MEDS ORDERED: CYCL10TA9 PO (00:04)
[2017-09-26] MEDS ORDERED: NAPR-1071 PO (00:04)
[2017-09-26] MEDS ORDERED: DEXAMETHASONE 10 MG/ML (DECADRON) 1 ML VIAL ONE (00:10)
[2017-09-26 00:28] VITALS: BP 148/110
--- NOTE | 2017-09-26 07:55 | Diagnostic Imaging Report ---
INDICATION: Neck and back pain, chest pain. COMPARISON STUDY: None. FINDINGS: Frontal view of the chest demonstrates lungs to be clear. Heart, mediastinum and pulmonary vascularity are normal. IMPRESSION: Normal chest. Dictated by: Dictated on workstation # [id number]
--- NOTE | 2017-09-26 08:10 | Diagnostic Imaging Report ---
EXAMINATION: CT of the lumbar spine dated 09/25/2017. TECHNIQUE: Multiple contiguous axial images were obtained through the lumbar spine without the use of intravenous contrast. Sagittal and coronal reformations were then performed. INDICATION: Neck and back pain. COMPARISONS: None. FINDINGS: There is normal height and alignment of the vertebral bodies. No compression deformities appreciated. No acute fractures visualized. There is multilevel endplate sclerosis and anterior spurring throughout the lumbar spine most marked from the L3 through the L5 levels. There is vacuum phenomenon at L3-L4, L4-L5 and L5-S1 as well. Mild intervertebral disc space narrowing seen throughout the entire lumbar region. Suspected bulging disc material is noted at multiple levels, most marked at the L4-L5 level. At least moderate central narrowing at this level is noted. At L3-L4, there is a likely left paracentral bulging disc causing at least mild central narrowing. Bilateral neuroforaminal narrowing seen at L3-L4 and L4-L5. Bilateral likely severe neuroforaminal stenoses seen at the L5-S1 level. A posterior spur disc complex at the L5-S1 level also suspected. Visualized intra-abdominal structures demonstrate diffuse atherosclerotic disease. IMPRESSION: Multilevel degenerative findings throughout the spine as described above. If continued clinical question, MRI could better characterize the soft tissues in central canal as well as nerve roots. No acute abnormality appreciated within the osseous structures. Other incidental findings as noted above. Findings agree with the preliminary report. Dictated by: Dictated on workstation # [id number]
--- NOTE | 2017-09-26 08:47 | Diagnostic Imaging Report ---
PROCEDURE: CT cervical spine without contrast. TECHNIQUE: Multiple contiguous axial images were obtained through the cervical spine without the use of intravenous contrast. Sagittal and coronal reformations were then performed. INDICATION: Neck and back pain EXAMINATION: CT cervical spine 09/25/2017. Correlation made to previous MRI from 10/21/2011. FINDINGS: There is minimal grade one anterolisthesis of C4 on C5. Intervertebral disc space narrowing and anterior and posterior spurring seen at C5-C6 and to a lesser degree at the C6-C7 level. No acute fractures appreciated. Multilevel diffuse facet and uncovertebral degenerative changes noted throughout the left greater than right. The prevertebral soft tissues appear unremarkable. There is an asymmetric rounded density posterior to the left clavicle measuring approximately 2.5 cm in size. This is not mentioned by the [facility]. It could represent a vessel or incompletely imaged muscular structure however on this examination difficult to characterize. CT imaging with contrast recommended to exclude an enlarged lymph node. IMPRESSION: 1. Multilevel diffuse degenerative findings as described above with no acute osseous abnormality. 2. Density left periclavicular region nonspecific, a lymph node is not excluded. This is not mentioned by the [facility] report. Please see above description and recommendations. Report was faxed/called to [facility] by sara at 8:46 am. LYUBOV Gastelum, was also notified. Dictated by: Dictated on workstation # [id number]
== END 2017-09-26 00:28 | disposition home or self-care (01) ==
LOC: EDUNIT# 21:22 → ER 21:25
DX: M54.16 Radiculopathy, lumbar region (principal); M54.12 Radiculopathy, cervical region; I10 Essential (primary) hypertension; F12.10 Cannabis abuse, uncomplicated; F17.210 Nicotine dependence, cigarettes, uncomplicated; Z79.52 Long term (current) use of systemic steroids
CPT/HCPCS: 36415; 71045; 72125; 72131; 80053; 82550; 82553; 83735; 84439; 84443; 84484; 85025; 93005; 96374; 96375

== ENCOUNTER 2018-06-21 14:30 | Emergency (ER) | payer BC, OTHER ==
[~2018-06-21] VITALS: Ht 182.9 cm; Wt 104.3 kg
[~2018-06-21 14:30] MED LIST: CYCL10TA9 PO; NAPR-1071 PO; PRD20T PO
[2018-06-21] MEDS ORDERED: HYDR-3812 (14:58)
--- OUTSIDE RECORDS SUMMARY | 2018-06-21 15:11 | XMS REPORT ---
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 Name Role Phone MANJIT SANTANA Unavailable PROBLEMS Type Condition ICD9-CM Code RTJ45-BE Code Onset Dates Condition Status SNOMED Code Problem Acute upper respiratory infections of unspecified site 465.9 Active 31838669 Problem Depressive disorder, not elsewhere classified 311 Active 32053011 Problem Essential hypertension, benign 401.1 Active 2755706 Problem Other chronic pain G89.29 Active 95231173 Problem Other, multiple, and unspecified sites, insect bite, nonvenomous, infected 919.5 Active 126012651 Problem Lumbago with sciatica, left side M54.42 Active 715504589 Problem DTAP TEST V06.1 Active Problem Counseling for marital and partner problems, unspecified V61.10 Active 81485832 Problem Anxiety state, unspecified 300.00 Active 943235321 Problem Nondependent tobacco use disorder 305.1 Active 867695393 Problem Anxiety F41.9 Active 99049249 Problem Low back pain M54.5 Active 470561540 Problem Flat foot 734 Active 04420881 Problem Unspecified neuralgia, neuritis, and radiculitis 729.2 Active 26074519 Problem Headache 784.0 Active 84324599 Problem Other malaise and fatigue 780.79 Active 582340397 Problem Cramp of limb 729.82 Active 022425013 Problem Lumbago 724.2 Active 040548038 Problem Cervicalgia 723.1 Active 42921318 Problem Unspecified disorders of bursae and tendons in shoulder region 726.10 Active 75124245 Problem Pain in joint, shoulder region 719.41 Active 587422785 Problem Unspecified backache 724.5 Active 875283808 ALLERGIES No Information ENCOUNTERS Encounter Location Date Diagnosis [facility] [address] [facility] [id number] [address] Oct, [facility] [address] [address] Oct, Lumbago with sciatica, left side M54.42 ; Other chronic pain G89.29 and Anxiety F41.9 [facility] [address] [address] Jun, Low back pain M54.5 [facility] [id number] [place] [address] Jun, Lumbar back pain M54.5 [facility] [id number] [place] [address] 18480- 2539 Aug, [facility] [id number] [place] [address] 37566- 2238 Mar, Generalized anxiety disorder F41.1 [facility] [id number] [place] [address] 14940- 1427 Mar, Generalized anxiety disorder F41.1 [facility] [id number] [place] [address] 52320- 6967 Dec, [facility] [id number] [place] [address]12- 5097 November, [facility] [address] [address] 14 Oct, 2014 [facility] [id number] [place] [address] 29384- 4352 Oct, [facility] [id number] [place] [address] 74691- 6725 Sep, [facility] [id number] [place] [address] 217989- 0038 Sep, [facility] [address] [address] 3708 Sep, [facility] [id number] [place] [address], [place] [address] Sep, [facility] [address] [id number] [place] [address] 2314 Aug, [facility] [place] [facility] [address] [id number] [place] [address]- 5089 Aug, [facility] [place] [facility] [address] [id number] [place] [address]- 9980 Aug, [facility] [place] [facility] [address] [id number] [place] [address]- 9586 Aug, [facility] [place] [facility] [address] [id number] [place] [address]- 1513 Aug, [facility] [place] [facility] [address] [id number] [place] [address]- 1937 Aug, [facility] [address] [id number] [place] [address]- 7969 Aug, [facility] [place] [facility] [address] [id number] [place] [address]- 4167 Aug, [facility] [place] [facility] [address] [id number] [place] [address]- 3585 Jul, [facility] [place] [facility] [address] [id number] [place] [address]- 3663 Jul, [facility] [place] [facility] [address] [id number] [place] [address]- 7682 Jul, [facility] [place] [facility] [address] [id number] [place] [address]- 5618 Jul, [facility] [place] [facility] [address] [id number] [place] [address]- 5709 Jul, [facility] [place] [facility] [address] [id number] [place] [address]- 2513 Jul, [facility] [place] [facility] [address] [id number] [place] [address]- 7389 Jul, [facility] [place] [facility] [address] [id number] [place] [address]- 1671 Jul, [facility] [place] [facility] [address] [id number] [place] [address]- 1021 Jun, [facility] [place] [facility] [address] [id number] [place] [address]- 3271 Jun, [facility] [place] [facility] [address] [id number] [place] [address]- 1908 May, [facility] [place] [facility] [address] [id number] [place] [address]- 2095 May, [facility] [place] [facility] [address] [id number] [place] [address]- 9997 May, [facility] [place] [facility] [address] [id number] [place] [address]- 9681 May, [facility] [place] [facility] [address] [id number] [place] [address]- 3334 May, [facility] [place] [facility] [address] [id number] [place] [address]- 3730 May, [facility] [place] [facility] [address] [id number] [place] [address]- 3828 May, [facility] [place] [facility] [address] [id number] [place] [address]- 9578 May, [facility] [place] [facility] [address] [id number] [address]- [address] Apr, [facility] [place] [facility] [address] [id number] [place] [address]- 9419 Apr, [facility] [place] [facility] [address] [id number] [place] [address]- 7704 Apr, [facility] [place] [facility] [address] [id number] [place] [address]- 4625 Apr, [facility] [place] [facility] [address] [id number] [place] [address]- 2306 Jan, [facility] [place] [facility] [address] [id number] [place] [address]- 6475 Jan, [facility] [place] [facility] [address] [id number] [place] [address]- 0535 Jan, [facility] [place] [facility] [address] [id number] [place] [address]- 6949 Jan, [facility] [place] [facility] [address] [id number] [place] [address]- 5237 Dec, [facility] [place] [facility] [address] [id number] [place] [address]- 6885 Dec, [facility] [place] [facility] [address] [id number] [place] [address]- 5437 Dec, [facility] [place] [facility] [address] [id number] [place] [address]- 8455 Oct, [facility] [place] [facility] [address] [id number] [place] [address]- 0152 Oct, [facility] [place] [facility] [address] [id number] [place] [address]- 2715 Oct, [facility] [place] [facility] [address] [id number] [place] [address]- 6806 Oct, [facility] [place] [facility] [address] [id number] [place] [address]- 0165 Sep, [facility] [place] [facility] [address] [id number] [place] [address]- 9809 Sep, [facility] [place] [facility] [address] [id number] [place] [address]- 6077 Jul, [facility] [place] [facility] [address] [id number] [place] [address]- 6531 Jul, [facility] [place] [facility] [address] [id number] [place] [address]- 1811 Apr, [facility] [place] [facility] [address] [id number] [place] [address]- 9736 Dec, [facility] [address] [id number] [place] [address]- 1260 November, [facility] [address] [id number] [place] [address]- 6036 Sep, [facility] [address] [id number] [place] [address]- 0591 Aug, [facility] [address] [id number] [place] [address]- 8403 Aug, [facility] [address] [id number] [place] [address]- 2630 Aug, [facility] [address] [id number] [place] [address]- 9890 Aug, [facility] [address] [id number] [place] [address]- 9391 Apr, [facility] [address] [id number] [place] [address]- 1296 Apr, [facility] [address] [id number] [place] [address]- 3628 Mar, [facility] [address] [id number] [place] [address]- 5102 Mar, [facility] [address] [id number] [place] [address]- 8756 Mar, [facility] [address] [id number] [place] [address]- 7133 Jan, [facility] [address] [id number] [place] [address]- 8170 Dec, [facility] [address] [id number] [place] [address]- 2026 November, [facility] [address] [id number] [place] [address]- 8823 Oct, [facility] [address] [facility] [id number] [address]- 2714 Oct, [facility] [address] [id number] [address]- 5[address] Sep, [facility] [address] [facility] [id number] [address]- 3927 Sep, [facility] [address] [id number] [address]- 7090 Sep, IMMUNIZATIONS No Known Immunizations SOCIAL HISTORY Never Assessed REASON FOR VISIT Medication question PLAN OF CARE VITAL SIGNS MEDICATIONS Unknown Medications RESULTS No Results PROCEDURES No Known procedures INSTRUCTIONS MEDICATIONS ADMINISTERED No Known Medications MEDICAL (GENERAL) HISTORY Type Description Date Surgical History appendectomy
--- OUTSIDE RECORDS SUMMARY | 2018-06-21 15:11 | XMS REPORT ---
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 Name Role Phone THAD FERNANDESISTIN Unavailable PROBLEMS Type Condition ICD9-CM Code BHR99-VP Code Onset Dates Condition Status SNOMED Code Problem Acute upper respiratory infections of unspecified site 465.9 Active 89378627 Problem Depressive disorder, not elsewhere classified 311 Active 34301833 Problem Essential hypertension, benign 401.1 Active 4901011 Problem Other chronic pain G89.29 Active 16315760 Problem Other, multiple, and unspecified sites, insect bite, nonvenomous, infected 919.5 Active 004790716 Problem Lumbago with sciatica, left side M54.42 Active 227574153 Problem DTAP TEST V06.1 Active Problem Counseling for marital and partner problems, unspecified V61.10 Active 02513602 Problem Anxiety state, unspecified 300.00 Active 586700029 Problem Nondependent tobacco use disorder 305.1 Active 512634529 Problem Anxiety F41.9 Active 00099055 Problem Low back pain M54.5 Active 903733774 Problem Flat foot 734 Active 43913163 Problem Unspecified neuralgia, neuritis, and radiculitis 729.2 Active 73533720 Problem Headache 784.0 Active 23660370 Problem Other malaise and fatigue 780.79 Active 969821723 Problem Cramp of limb 729.82 Active 220272583 Problem Lumbago 724.2 Active 365592684 Problem Cervicalgia 723.1 Active 98923793 Problem Unspecified disorders of bursae and tendons in shoulder region 726.10 Active 96414518 Problem Pain in joint, shoulder region 719.41 Active 409697529 Problem Unspecified backache 724.5 Active 116149433 ALLERGIES Substance Reaction Event Type Date Status Soma Unknown Drug Allergy Jun, Active ENCOUNTERS Encounter Location Date Diagnosis [facility] [address] [address] Oct, [facility] [id number] [place] [address] 36600- 1062 Oct, Lumbago with sciatica, left side M54.42 ; Other chronic pain G89.29 and Anxiety F41.9 [facility] [id number] [place] [address] 12058- 6277 Jun, Low back pain M54.5 [facility] [id number] [place] [address] 22923 -6728 Jun, Lumbar back pain M54.5 [facility] [id number] [place] [address] 37211- 1738 Aug, [facility] [id number] [place] [address] 47580- 8017 Mar, Generalized anxiety disorder F41.1 [facility] [id number] [place] [address] 13619- 5099 Mar, Generalized anxiety disorder F41.1 [facility] [id number] [place] [address] 24025- 8772 Dec, [facility] [id number] [place] [address] 23180- 5387 November, [facility] [address] [place] [address] 89023- 8743 14 Oct, 2014 [facility] [id number] [place] [address] 93917- 6304 Oct, [facility] [id number] [place] [address] 72091- 5953 Sep, [facility] [id number] [place] [address] 02283- 6434 Sep, [facility] [address] [address]- 7245 Sep, [facility] [address] [id number] [place] [address]- 2562 Sep, [facility] [place] [facility] [address] [id number] [place] [address]- 9280 Aug, [facility] [place] [facility] [address] [id number] [place] [address]- 9646 Aug, [facility] [place] [facility] [address] [id number] [place] [address]- 7098 Aug, [facility] [place] [facility] [address] [id number] [place] [address]- 2811 Aug, [facility] [place] [facility] [address] [id number] [place] [address]- 0544 Aug, [facility] [place] [facility] [address] [id number] [place] [address]- 6969 Aug, [facility] [place] [facility] [address] [id number] [place] [address]- 7435 Aug, [facility] [place] [facility] [address] [id number] [place] [address]- 1229 Aug, [facility] [place] [facility] [address] [id number] [place] [address]- 0870 Jul, [facility] [place] [facility] [address] [id number] [place] [address]- 0047 Jul, [facility] [place] [facility] [address] [id number] [place] [address]- 2233 Jul, [facility] [place] [facility] [address] [id number] [place] [address]- 1164 Jul, [facility] [place] [facility] [address] [id number] [place] [address]- 6606 Jul, [facility] [place] [facility] [address] [id number] [place] [address]- 4485 Jul, [facility] [place] [facility] [address] [id number] [place] [address]- 1247 Jul, [facility] [place] [facility] [address] [id number] [place] 6896 Jul, [facility] [place] [facility] [address] [id number] [place] [address]- 1341 Jun, [facility] [place] [facility] [address] [id number] [place] [address]- 6097 Jun, [facility] [place] [facility] [address] [id number] [place] [address]- 1239 May, [facility] [place] [facility] [address] [id number] [place] [address]- 5244 May, [facility] [place] [facility] [address] [id number] [place] [address]- 4201 May, [facility] [place] [facility] [address] [id number] [place] [address]- 6773 May, [facility] [place] [facility] [address] [id number] [address]- 9118 May, [facility] [place] [facility] [address] [id number] [place] [address]- 3780 May, [facility] [place] [facility] [address] [id number] [place] [address]- 5961 May, [facility] [place] [facility] [address] [id number] [address]- 3897 May, [facility] [place] [facility] [address] [id number] [address]- 6593 Apr, [facility] [place] [facility] [address] [id number] [place] 5189 Apr, [facility] [place] [facility] [address] [id number], [place] [address]- 8896 Apr, [facility] [place] [facility] [address] [id number], [place] [address]- 3668 Apr, [facility] [place] [facility] [address] [id number] [place] [address]- 4659 17 Jan, 2014 [facility] [address] [id number] [place] [address]- 9195 Jan, [facility] [place] [facility] [address] [id number] [place] [address]- 7392 Jan, [facility] [address] [id number] [place] [address]- 3096 Jan, [facility] [place] [facility] [address] [id number] [place] [address]- 1265 Dec, [facility] [place] [facility] [address] [id number] [place] [address]- 0492 Dec, [facility] [place] [facility] [address] [id number] [place] [address]- 5388 Dec, [facility] [address] [id number] [place] [address]- 5201 Oct, [facility] [address] [id number] [place] [address]- 7040 Oct, [facility] [place] [facility] [address] [id number] [place] [address]- 7815 Oct, [facility] [address] [id number] [place] [address]- 7515 Oct, [facility] [place] [facility] [address] [id number] [place] [address]- 2190 Sep, [facility] [place] [facility] [address] [id number] [place] [address]- 9943 Sep, [facility] [place] [facility] [address] [id number] [place] [address]- 3091 Jul, [facility] [place] [facility] [address] [id number] [place] [address]- 7381 Jul, [facility] [place] [facility] [address] [id number] [place] [address]- 6779 05 Apr, 2013 [facility] [place] [facility] [address] [id number] [place] [address]- 9298 Dec, [facility] [place] [facility] [address] [id number] [place] [address]- 6980 November, [facility] [place] [facility] [address] [id number] [place] [address]- 1184 Sep, [facility] [place] [facility] [address] [id number] [place] [address]- 1837 Aug, [facility] [place] [facility] [address] [id number] [place] [address]- 8075 Aug, [facility] [place] [facility] [address] [id number] [place] [address]- 5461 Aug, [facility] [place] [facility] [address] [id number] [place] [address]- 0276 Aug, [facility] [place] [facility] [address] [id number] [place] [address]- 1396 Apr, [facility] [place] [facility] [address] [id number] [place] [address]- 9568 Apr, [facility] [place] [facility] [address] [id number] [place] [address]- 1644 Mar, [facility] [place] [facility] [address] [id number] [place] [address]- 6216 Mar, [facility] [place] [facility] [address] [id number] [address]- 4004 Mar, [facility] [place] [facility] [address] [id number] [place] [address]- 0733 Jan, [facility] [place] [facility] [address] [id number] [place] [address]- 1197 Dec, [facility] [place] [facility] [address] [id number] [place] [address]- 9240 November, [facility] [place] [facility] [address] [id number], [place] [address]- 4016 10 Oct, 2011 [facility] [address] [facility] [id number], [place] [address]- 0036 Oct, [facility] [address] [facility] [id number] [address]- 9686 28 Sep, 2011 [facility] [address] [facility] [id number] [address]- 5806 Sep, [facility] [address] [facility] [id number], [place] [address]- 8266 15 Sep, 2011 IMMUNIZATIONS Vaccine Route Administration Date Status DEXAMETHASONE 4MG/ML (PER 1 MG) IM Intramuscular Jun 05, 2017 Administered DEPO MEDROL 40 MG/ML IM Intramuscular Jun 05, 2017 Administered SOCIAL HISTORY Never Assessed REASON FOR VISIT Threw back out last night while shaking off pants to get in the shower [id number] PLAN OF CARE Activity Details Follow Up prn Reason: VITAL SIGNS Height 73 in 2017-06-05 Weight 240.2 lbs 2017-06-05 Temperature 97.7 degrees Fahrenheit 2017-06-05 Heart Rate 92 bpm 2017-06-05 Respiratory Rate 22 2017-06-05 BMI 31.69 kg/m2 2017-06-05 Blood pressure systolic 130 mmHg 2017-06-05 Blood pressure diastolic 90 mmHg 2017-06-05 MEDICATIONS Medication Instructions Dosage Frequency Start Date End Date Duration Status Hydrocodone-Acetaminophen 5-325 MG Orally every 6 hrs 1 tablet as needed 6h Jun, Jun, 5 days Active Cyclobenzaprine HCl 10 MG Orally Three times a day 1 tablet as needed 8h Jun, Jun, 7 days Active RESULTS No Results PROCEDURES Procedure Date Ordered Result Body Site DEPO MEDROL 40 MG/ML Jun 05, 2017 DEXAMETHASONE 4MG/ML (PER 1 MG) Jun 05, 2017 THER/PROPH/DIAG INJ, SC/IM Jun 05, 2017 INSTRUCTIONS MEDICATIONS ADMINISTERED No Known Medications MEDICAL (GENERAL) HISTORY Type Description Date Surgical History appendectomy
--- OUTSIDE RECORDS SUMMARY | 2018-06-21 15:11 | XMS REPORT ---
Author Author LEIGH BURRIS Organization [facility] Address [address] [place] [address] Care Team Providers Care Splitting Machine Tender Name Role Phone LEIGH BURRIS Unavailable PROBLEMS Type Condition ICD9-CM Code [id number]-AF Code Onset Dates Condition Status SNOMED Code Problem Acute upper respiratory infections of unspecified site 465.9 Active 29220747 Problem Depressive disorder, not elsewhere classified 311 Active 81531885 Problem Essential hypertension, benign 401.1 Active 2467154 Problem Other chronic pain G89.29 Active 51968927 Problem Other, multiple, and unspecified sites, insect bite, nonvenomous, infected 919.5 Active 284736383 Problem Lumbago with sciatica, left side M54.42 Active 002498090 Problem DTAP TEST V06.1 Active Problem Counseling for marital and partner problems, unspecified V61.10 Active 67323170 Problem Anxiety state, unspecified 300.00 Active 925400717 Problem Nondependent tobacco use disorder 305.1 Active 356791730 Problem Anxiety F41.9 Active 10462166 Problem Low back pain M54.5 Active 811877963 Problem Flat foot 734 Active 61142442 Problem Unspecified neuralgia, neuritis, and radiculitis 729.2 Active 09591661 Problem Headache 784.0 Active 41652227 Problem Other malaise and fatigue 780.79 Active 660922480 Problem Cramp of limb 729.82 Active 339061796 Problem Lumbago 724.2 Active 429976189 Problem Cervicalgia 723.1 Active 74475961 Problem Unspecified disorders of bursae and tendons in shoulder region 726.10 Active 45924537 Problem Pain in joint, shoulder region 719.41 Active 694928370 Problem Unspecified backache 724.5 Active 720430795 ALLERGIES Substance Reaction Event Type Date Status Soma Unknown Drug Allergy Oct, Active ENCOUNTERS Encounter Location Date Diagnosis [facility] [id number] [address] Oct, [facility] [id number] [place] [address] Oct, Lumbago with sciatica, left side M54.42 ; Other chronic pain G89.29 and Anxiety F41.9 [facility] [address] [address] Jun, Low back pain M54.5 [facility] [id number] [place] [address] Jun, Lumbar back pain M54.5 [facility] [id number] [place] [address] Aug, [facility] [id number] [place] [address]- 46[address] Mar, Generalized anxiety disorder F41.1 [facility] [id number] [place] [address]- 6201 Mar, Generalized anxiety disorder F41.1 [facility] [id number] [place] [address]- [address] Dec, [facility] [id number] [place] [address]- [address] November, [facility] [id number] [address] 14 Oct, 2014 [facility] [id number] [place] [address]- [address] Oct, [facility] [id number] [address] Sep, [facility] [id number] [place] [address]- [address] Sep, [facility] [address] [address] Sep, [facility] [id number] [place] [address] Sep, [facility] [address] [id number] [place] [address] Aug, [facility] [address] [id number] [place] [address] 265[address] Aug, [facility] [address] [id number] [place] [address] Aug, [facility] [address] [id number] [place] [address]578 Aug, [facility] [address] [id number] [place] [address] Aug, [facility] [address] [id number] [place] [address] 2232 Aug, [facility] [address] [id number] [place] [address]- 8617 Aug, [facility] [address] [id number] [place] [address]- 3606 Aug, [facility] [address] [id number] [place] [address] 6644 Jul, [facility] [address] [id number] [place] [address]- 57[address] Jul, [facility] [address] [id number] [place] [address] 3660 Jul, [facility] [address] [id number] [place] [address]- 4460 Jul, [facility] [place] [facility] [address] [id number] [place] [address] Jul, [facility] [address] [id number] [place] [address]- [address] Jul, [facility] [address] [id number] [place] [address]- 4034 Jul, [facility] [place] [facility] [address] [id number] [place] [address] 7920 Jul, [facility] [place] [facility] [address] [id number] [place] [address] 8[address] Jun, [facility] [place] [facility] [address] [id number] [place] [address]- 76[address] Jun, [facility] [place] [facility] [address] [id number] [place] [address]- 7970 May, [facility] [place] [facility] [address] [id number] [place] [address]- 7[address] May, [facility] [place] [facility] [address] [id number] [place] [address]- 5646 May, [facility] [place] [facility] [address] [id number] [place] [address]- 8929 May, [facility] [place] [facility] [address] [id number], [place] [address] May, [facility] [place] [facility] [address] [id number] [place] [address]- 9920 May, [facility] [place] [facility] [address] [id number], [place] [address]- [address] May, [facility] [place] [facility] [address] [id number], [place] [address] 1676 May, [facility] [place] [facility] [address] [id number] [address] 277[address] Apr, [facility] [place] [facility] [address] [id number], [place] [address]- [address] Apr, [facility] [place] [facility] [address] [id number], [place] [address]- 84[address] Apr, [facility] [place] [facility] [address] [id number] [address] Apr, [facility] [place] [facility] [address] [id number], [place] [address]- 87[address] Jan, [facility] [place] [facility] [address] [id number] [place] [address]- 6417 Jan, [facility] [place] [facility] [address] [id number] [place] [address]- 7946 Jan, [facility] [place] [facility] [address] [id number] [place] [address]- 7436 Jan, [facility] [place] [facility] [address] [id number] [place] [address]- [address] Dec, [facility] [place] [facility] [address] [id number] [place] [address]- 0825 Dec, [facility] [place] [facility] [address] [id number] [place] [address]- 7967 Dec, [facility] [place] [facility] [address] [id number] [place] [address]- 8593 Oct, [facility] [place] [facility] [address] [id number] [place] [address]- 6247 Oct, [facility] [place] [facility] [address] [id number] [place] [address]- 0953 Oct, [facility] [place] [facility] [address] [id number] [place] [address]- 6066 Oct, [facility] [place] [facility] [address] [id number] [place] [address]- 2378 Sep, [facility] [place] [facility] [address] [id number] [place] [address]- 8225 Sep, [facility] [place] [facility] [address] [id number] [place] [address]- 4739 Jul, [facility] [place] [facility] [address] [id number] [place] [address]- 2308 Jul, [facility] [place] [facility] [address] [facility] [id number] [place] [address]- 8944 Apr, [facility] [place] [facility] [address] [id number] [place] [address]- 4500 Dec, [facility] [place] [facility] [address] [id number] [place] [address]- 7698 November, [facility] [place] [facility] [address] [id number] [place] [address]- 2866 Sep, [facility] [place] [facility] [address] [id number] [place] [address]- 4196 Aug, [facility] [place] [facility] [address] [id number] [place] [address]- 1035 Aug, [facility] [place] [facility] [address] [id number] [place] [address]- 0803 Aug, [facility] [place] [facility] [address] [id number] [place] [address]- 8670 Aug, [facility] [place] [facility] [address] [id number] [place] [address]- 8112 Apr, [facility] [place] [facility] [address] [id number] [place] [address]- 6840 Apr, [facility] [place] [facility] [address] [id number] [place] [address]- 6169 Mar, [facility] [place] [facility] [address] [id number] [place] [address]- 6963 Mar, [facility] [place] [facility] [address] [id number] [place] [address]- 0329 Mar, [facility] [place] [facility] [address] [id number] [place] [address]- 4781 Jan, [facility] [place] [facility] [address] [id number] [place] [address]- 6268 Dec, [facility] [place] [facility] [address] [id number] [place] [address]- 6460 November, [facility] [place] [facility] [address] [id number] [place] [address]- 6251 Oct, [facility] [address] [facility] [id number] [place] [address]- [address] Oct, [facility] [address] [facility] [id number], [place] [address]- [address] Sep, [facility] [address] [facility] [id number] [place] [address]- 4566 Sep, [facility] [address] [facility] [id number], [place] [address]- [address] Sep, IMMUNIZATIONS No Known Immunizations SOCIAL HISTORY Never Assessed REASON FOR VISIT lower back pain WB-MA PLAN OF CARE VITAL SIGNS Height 73 in 2017-11-21 Weight 223 lbs 2017-11-21 Temperature 98 degrees Fahrenheit 2017-11-21 Heart Rate 90 bpm 2017-11-21 Respiratory Rate 20 2017-11-21 BMI 29.42 kg/m2 2017-11-21 Blood pressure systolic 132 mmHg 2017-11-21 Blood pressure diastolic 84 mmHg 2017-11-21 MEDICATIONS Medication Instructions Dosage Frequency Start Date End Date Duration Status Xanax 0.5 MG 1 tablet 12h 18 Sep, 2014 Active Cyclobenzaprine HCl 10 mg Orally 2 times a day 1 tablet as needed 12h Oct, Active PredniSONE 20 mg Orally Once a day 2 tablets 24h Oct, Oct, 05 days Active Hydrocodone-Acetaminophen 10-325 MG 1 tablet as needed 6h Oct, Active RESULTS No Results PROCEDURES No Known procedures INSTRUCTIONS MEDICATIONS ADMINISTERED No Known Medications MEDICAL (GENERAL) HISTORY Type Description Date Surgical History appendectomy
--- OUTSIDE RECORDS SUMMARY | 2018-06-21 15:12 | XMS REPORT | Continuity of Care Document ---
Author Author [facility] Address Unknown Phone Unavailable Allergies Active Description Code Type Severity Reaction Onset Reported/Identified Relationship to Patient Clinical Status Yes No Known Drug Allergies [id number] Drug Allergy Unknown N/A 05/06/2008 Yes Soma Drug Allergy 10/26/2011 Yes Soma Drug Allergy N/A N/A 10/26/2011 Medications There is no data. Problems Date Dx Coded Attending Type Code Diagnosis Diagnosed By 10/14/2011 MANJIT SANTANA APRN 465.9 UPPER RESPIRATORY INFECTION 10/14/2011 MANJIT SANTANA APRN 724.5 BACKACHE 10/14/2011 MANJIT SANTANA APRN 729.2 RADICULOPATHY 10/14/2011 MARYANN JOSE DOA K 465.9 UPPER RESPIRATORY INFECTION 10/14/2011 JOSE DO CHYNA K 724.5 BACKACHE 10/14/2011 JOSE MARYANN CHAVESA K 729.2 RADICULOPATHY 10/14/2011 465.9 UPPER RESPIRATORY INFECTION 10/14/2011 724.5 BACKACHE 10/14/2011 729.2 RADICULOPATHY 10/14/2011 465.9 UPPER RESPIRATORY INFECTION 10/14/2011 724.5 BACKACHE 10/14/2011 729.2 RADICULOPATHY 10/14/2011 465.9 UPPER RESPIRATORY INFECTION 10/14/2011 724.5 BACKACHE 10/14/2011 729.2 RADICULOPATHY 10/14/2011 JOSE DO CHYNA K 465.9 UPPER RESPIRATORY INFECTION 10/14/2011 JOSE DO CHYNA K 724.5 BACKACHE 10/14/2011 JOSE DO CHYNA K 729.2 RADICULOPATHY 10/14/2011 JOSE DO CHYNA K 465.9 UPPER RESPIRATORY INFECTION 10/14/2011 JOSE DO CHYNA K 724.5 BACKACHE 10/14/2011 JOSE DO CHYNA K 729.2 RADICULOPATHY 10/14/2011 ESTHER PLATFORM OPERATIONS DIRECTOR, MANJIT S 465.9 UPPER RESPIRATORY INFECTION 10/14/2011 ESTHER PLATFORM OPERATIONS DIRECTOR, MANJIT S 724.5 BACKACHE 10/14/2011 ESTHER PLATFORM OPERATIONS DIRECTOR, MANJIT S 729.2 RADICULOPATHY 10/14/2011 TIAN CASHERO PLATFORM OPERATIONS DIRECTOR, BRIDGER N 465.9 UPPER RESPIRATORY INFECTION 10/14/2011 TIAN CASHERO PLATFORM OPERATIONS DIRECTOR, BRIDGER N 724.5 BACKACHE 10/14/2011 TIAN CASHERO PLATFORM OPERATIONS DIRECTOR, BRIDGER N 729.2 RADICULOPATHY 10/14/2011 JOSE DO, CHYNA K 465.9 UPPER RESPIRATORY INFECTION 10/14/2011 JOSE DO, CHYNA K 724.5 BACKACHE 10/14/2011 JOSE DO, CHYNA K 729.2 RADICULOPATHY 10/14/2011 JOSE DO, CHYNA K 465.9 UPPER RESPIRATORY INFECTION 10/14/2011 JOSE DO, CHYNA K 724.5 BACKACHE 10/14/2011 JOSE DO, CHYNA K 729.2 RADICULOPATHY 10/14/2011 ESTHER PLATFORM OPERATIONS DIRECTOR, MANJIT S 465.9 UPPER RESPIRATORY INFECTION 10/14/2011 ESTHER PLATFORM OPERATIONS DIRECTOR, MANJIT S 724.5 BACKACHE 10/14/2011 ESTHER PLATFORM OPERATIONS DIRECTOR, MANJIT S 729.2 RADICULOPATHY 10/14/2011 LUIS M EUGENE APRN 465.9 UPPER RESPIRATORY INFECTION 10/14/2011 LUIS M EUGENE APRN 724.5 BACKACHE 10/14/2011 LUIS M EUGENE APRN 729.2 RADICULOPATHY 10/14/2011 ESTHER PLATFORM OPERATIONS DIRECTOR, MANJIT S 465.9 UPPER RESPIRATORY INFECTION 10/14/2011 ESTHER PLATFORM OPERATIONS DIRECTOR, MANJIT S 724.5 BACKACHE 10/14/2011 ESTHER PLATFORM OPERATIONS DIRECTOR, MANJIT S 729.2 RADICULOPATHY 10/14/2011 JOSE DO, [...] IN JOINT INVOLVING SHOULDER REGION 10/26/2011 CHYNA JSOE DO K 719.41 PAIN IN JOINT INVOLVING SHOULDER REGION 10/26/2011 CHYNA JOSE DO K 719.41 PAIN IN JOINT INVOLVING SHOULDER REGION 10/26/2011 MANJIT SANTANA APRN 719.41 PAIN IN [...] INVOLVING SHOULDER REGION 10/26/2011 CHYNA JOSE DO 719.41 PAIN IN JOINT INVOLVING SHOULDER REGION 10/26/2011 LUIS M EUGENE APRN 719.41 PAIN IN JOINT INVOLVING SHOULDER REGION 10/26/2011 LUIS M EUGENE APRN 719.41 PAIN IN JOINT INVOLVING SHOULDER REGION 01/17/2012 MANJIT SANTANA APRN S 729.82 CRAMP OF LIMB 01/17/2012 ESTHER MORGAN MANJIT S 734 FLAT FOOT 01/17/2012 JOSE [...] DO, CHYNA K 734 FLAT FOOT 01/17/2012 ANANT SANTANA APRNNDA S 729.82 CRAMP OF LIMB 01/17/2012 ANANT SANTANA APRNNDA S 734 FLAT FOOT 01/17/2012 JAYLAN COLINERO PLATFORM OPERATIONS DIRECTOR, BRIDGER N 729.82 CRAMP OF LIMB 01/17/2012 TIAN CASHERO PLATFORM OPERATIONS DIRECTOR, BRIDGER N 734 FLAT FOOT 01/17/2012 JOSE DO, CHYNA K 729.82 CRAMP OF LIMB 01/17/2012 JOSE DO, CHYNA K 734 FLAT FOOT 01/17/2012 JOSE DO, CHYNA K 729.82 CRAMP OF LIMB 01/17/2012 JOSE DO, CHYNA K 734 FLAT FOOT 01/17/2012 ESTHER MORGAN MANJIT S 729.82 CRAMP OF LIMB 01/17/2012 ESTHER MORGAN MANJIT S 734 FLAT FOOT 01/17/2012 LUIS M EUGENE APRN D 729.82 CRAMP OF LIMB 01/17/2012 LUIS M EUGENE APRN 734 FLAT FOOT 01/17/2012 ANANT SANTANA APRNNDA S 729.82 CRAMP OF LIMB 01/17/2012 ESTHER MORGAN MANJIT S 734 FLAT FOOT 01/17/2012 JOSE DO, CHYNA K 729.82 CRAMP OF LIMB 01/17/2012 JOSE DO, CHYNA K 734 FLAT FOOT 01/17/2012 LUIS M EUGENE APRN 729.82 CRAMP OF LIMB 01/17/2012 LUIS M EUGENE APRN 734 FLAT FOOT 01/17/2012 LUIS M EUGENE APRN 729.82 CRAMP OF LIMB 01/17/2012 LUIS M EUGENE APRN 734 FLAT FOOT 03/23/2012 ANANT SANTANA APRNNDA S 723.1 CERVICALGIA 03/23/2012 ANANT SANTANA APRNNDA [...] BRIDGER N 723.1 CERVICALGIA 03/23/2012 JAYLAN BRANDT APRN, BRIDGER N 784.0 HEADACHE 03/23/2012 JOSE DO, [...] DO, CHYNA K 784.0 HEADACHE 03/23/2012 EUGENE PLATFORM OPERATIONS DIRECTOR, LUIS M D 723.1 CERVICALGIA 03/23/2012 EUGENE PLATFORM OPERATIONS DIRECTOR, LUIS M D 784.0 HEADACHE 03/23/2012 EUGENE PLATFORM OPERATIONS DIRECTOR, LUIS M D 723.1 CERVICALGIA 03/23/2012 EUGENE PLATFORM OPERATIONS DIRECTOR, LUIS M D 784.0 HEADACHE 08/15/2012 ANANT SANTANA APRNNDA S 300.00 ANXIETY STATE UNSPECIFIED 08/15/2012 ANANT SANTANA APRNNDA S 401.1 HYPERTENSION, BENIGN ESSENTIAL 08/15/2012 JOSE [...] CHYNA K 401.1 HYPERTENSION, BENIGN ESSENTIAL 08/15/2012 ANANT SANTANA APRNNDA S 300.00 ANXIETY STATE UNSPECIFIED 08/15/2012 ESTHER MORGAN MANJIT S 401.1 HYPERTENSION, BENIGN ESSENTIAL 08/15/2012 TIAN CASHERO PLATFORM OPERATIONS DIRECTOR, BRIDGER N 300.00 ANXIETY STATE UNSPECIFIED 08/15/2012 TIAN CASHERO PLATFORM OPERATIONS DIRECTOR, BRIDGER N 401.1 HYPERTENSION, BENIGN ESSENTIAL 08/15/2012 JOSE DO, CHYNA K 300.00 ANXIETY STATE UNSPECIFIED 08/15/2012 JOSE DO, CHYNA K 401.1 HYPERTENSION, BENIGN ESSENTIAL 08/15/2012 JOSE DO, CHYNA K 300.00 ANXIETY STATE UNSPECIFIED 08/15/2012 JOSE DO, CHYNA K 401.1 HYPERTENSION, BENIGN ESSENTIAL 08/15/2012 ESTHER PLATFORM OPERATIONS DIRECTOR, MANJIT S 300.00 ANXIETY STATE UNSPECIFIED 08/15/2012 ESTHER PLATFORM OPERATIONS DIRECTOR, MANJIT S 401.1 HYPERTENSION, BENIGN ESSENTIAL 08/15/2012 LUIS M EUGENE APRN D 300.00 ANXIETY STATE UNSPECIFIED 08/15/2012 LUIS M EUGENE APRN 401.1 HYPERTENSION, BENIGN ESSENTIAL 08/15/2012 ESTHER PLATFORM OPERATIONS DIRECTOR, MANJIT S 300.00 ANXIETY STATE UNSPECIFIED 08/15/2012 ESTHER PLATFORM OPERATIONS DIRECTOR, MANJIT S 401.1 HYPERTENSION, BENIGN ESSENTIAL 08/15/2012 JOSE DO, CHYNA K 300.00 ANXIETY STATE UNSPECIFIED 08/15/2012 JOSE DO, CHYNA K 401.1 HYPERTENSION, BENIGN ESSENTIAL 08/15/2012 LUIS M EUGENE APRN D 300.00 ANXIETY STATE UNSPECIFIED 08/15/2012 LUIS M UEGENE APRN 401.1 HYPERTENSION, BENIGN ESSENTIAL 08/15/2012 ALEXANDREA EUGENE APRNON D 300.00 ANXIETY STATE UNSPECIFIED 08/15/2012 LUIS M EUGENE APRN D 401.1 HYPERTENSION, BENIGN ESSENTIAL 09/06/2012 311 [...] K V61.10 RL RELATION COUNS 09/06/2012 ESTHER PLATFORM OPERATIONS DIRECTOR, MANJIT S 311 DEPRESSIVE DISORDER NOS 09/06/2012 ESTHER PLATFORM OPERATIONS DIRECTOR, MANJIT S V61.10 RL RELATION COUNS 09/06/2012 PETER FERNANDEZ APRNCY N 311 DEPRESSIVE DISORDER NOS 09/06/2012 BRIDGER FERNANDEZ APRN N V61.10 RL RELATION COUNS 09/06/2012 JOSE DO, CHYNA K 311 DEPRESSIVE DISORDER NOS 09/06/2012 JOSE DO, CHYNA K V61.10 RL RELATION COUNS 09/06/2012 JOSE DO, CHYNA K 311 DEPRESSIVE DISORDER NOS 09/06/2012 JOSE DO, CHYNA K V61.10 RL RELATION COUNS 09/06/2012 ESTHER MORGAN MANJIT S 311 DEPRESSIVE DISORDER NOS 09/06/2012 ESTHER MORGAN MANJIT S V61.10 RL RELATION COUNS 09/06/2012 LUIS M EUGENE APRN D 311 DEPRESSIVE DISORDER NOS 09/06/2012 LUIS M EUGENE APRN V61.10 RL RELATION COUNS 09/06/2012 ANANT SANTANA APRNNDA S 311 DEPRESSIVE DISORDER NOS 09/06/2012 ANANT SANTANA APRNNDA S V61.10 RL RELATION COUNS 09/06/2012 JOSE [...] 305.1 NONDEPENDENT TOBACCO USE DISORDER 11/20/2013 MANJIT SANTNAA APRN S 724.2 LUMBAGO/ LOW BACK PAIN [...] 305.1 NONDEPENDENT TOBACCO USE DISORDER 11/20/2013 ESTHER PLATFORM OPERATIONS DIRECTOR, MANJIT S 724.2 LUMBAGO/ LOW BACK PAIN 11/20/2013 LUIS M EUGENE APRN 305.1 NONDEPENDENT TOBACCO USE DISORDER 11/20/2013 LUIS M EUGENE APRN 724.2 LUMBAGO/ LOW BACK PAIN 11/20/2013 PRANEETH SANTANA APRNA S 305.1 NONDEPENDENT TOBACCO USE DISORDER 11/20/2013 MANJIT SANTANA APRN S 724.2 LUMBAGO/ LOW BACK PAIN 11/20/2013 JOSE DO CHYNA K 305.1 NONDEPENDENT TOBACCO USE DISORDER 11/20/2013 JOSE DOMARYANNA K 724.2 LUMBAGO/ LOW BACK PAIN 11/20/2013 LUIS M EUGENE APRN 305.1 NONDEPENDENT TOBACCO USE DISORDER 11/20/2013 LUIS M EUGENE APRN 724.2 LUMBAGO/ LOW BACK PAIN 11/20/2013 LUIS M EUGENE APRN 305.1 NONDEPENDENT TOBACCO USE DISORDER 11/20/2013 LUIS M EUGENE APRN 724.2 LUMBAGO/ LOW BACK PAIN 01/08/2014 BRIDGER FERNANDEZ APRN N 919.5 INSECT BITE NONVENOMOUS OF OTHER MULTIPLE AND UNSPECIFIED SITES INFECTED 01/08/2014 JOSE DOMARYANNA K 919.5 INSECT BITE NONVENOMOUS OF OTHER MULTIPLE AND UNSPECIFIED SITES INFECTED 01/08/2014 JOSE DOMARYANNA K 919.5 INSECT BITE NONVENOMOUS OF OTHER MULTIPLE AND UNSPECIFIED SITES INFECTED 01/08/2014 MANJIT SANTANA APRN S 919.5 INSECT BITE NONVENOMOUS OF OTHER MULTIPLE AND UNSPECIFIED SITES INFECTED 01/08/2014 LUIS M EUGENE APRN 919.5 INSECT BITE NONVENOMOUS OF OTHER MULTIPLE AND UNSPECIFIED SITES INFECTED 01/08/2014 PRANEETH SANTANA APRNA S 919.5 INSECT BITE NONVENOMOUS OF OTHER MULTIPLE AND UNSPECIFIED SITES INFECTED 01/08/2014 MARYANN JOSE DOA K 919.5 INSECT BITE NONVENOMOUS OF OTHER MULTIPLE AND UNSPECIFIED SITES INFECTED 01/08/2014 LUIS M EUGENE APRN 919.5 INSECT BITE NONVENOMOUS OF OTHER MULTIPLE AND UNSPECIFIED SITES INFECTED 01/08/2014 LUIS M EUGENE APRN 919.5 INSECT BITE NONVENOMOUS OF OTHER MULTIPLE AND UNSPECIFIED SITES INFECTED 02/14/2014 REBECA CHYNA CHAVES K V06.1 TDAP DX 02/14/2014 MANJIT SANTANA APRN S V06.1 TDAP DX 02/14/2014 LUIS M EUGENE APRN V06.1 TDAP DX 02/14/2014 MANJIT SANTANA APRN S V06.1 TDAP DX 02/14/2014 REBECA CHAVESCHYNA K V06.1 TDAP DX 02/14/2014 LUIS M EUGENE APRN V06.1 TDAP DX 02/14/2014 LUIS M EUGENE APRN V06.1 TDAP DX 07/22/2014 MANJIT SANTNAA APRN S 719.41 PAIN- SHOULDER 07/22/2014 MANJIT SANTANA APRN S 780.79 FATIGUE 07/22/2014 JOSE CHYNA CHAVES K 719.41 PAIN- SHOULDER 07/22/2014 JOSE CHYNA CHAVES K 780.79 FATIGUE 07/22/2014 LUIS M EUGENE APRN 719.41 PAIN- SHOULDER 07/22/2014 LUIS M EUGENE APRN 780.79 FATIGUE 07/22/2014 LUIS M EUGENE APRN 719.41 PAIN- SHOULDER 07/22/2014 LUIS M EUGENE APRN 780.79 FATIGUE 08/22/2014 LUIS M EUGENE APRN 726.10 DISORDERS OF BURSAE AND TENDONS IN SHOULDER REGION UNSPECIFIED 09/25/2017 MANJIT SANTANA Ot 715.31 LOC OSTEOARTH NOS-SHLDER 09/25/2017 MANJIT SANTANA Ot 780.79 OTH MALAISE FATIGUE 09/26/2017 DALE STAPLES Ot F12.10 CANNABIS ABUSE, UNCOMPLICATED 09/26/2017 DALE STAPLES Ot F17.210 NICOTINE DEPENDENCE, CIGARETTES, UNCOMPL 09/26/2017 DALE STAPLES Ot I10 ESSENTIAL (PRIMARY) HYPERTENSION 09/26/2017 DALE STAPLES Ot M54.12 RADICULOPATHY, CERVICAL REGION 09/26/2017 DALE STAPLES Ot M54.16 RADICULOPATHY, LUMBAR REGION 09/26/2017 DALE STAPLES Ot M54.2 CERVICALGIA 09/26/2017 DALE STAPLES Ot 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 09/27/2017 DALE STAPLES Ot F12.10 CANNABIS ABUSE, UNCOMPLICATED 09/27/2017 DALE STAPLES Ot F17.210 NICOTINE DEPENDENCE, CIGARETTES, UNCOMPL 09/27/2017 DALE STAPLES Ot I10 ESSENTIAL (PRIMARY) HYPERTENSION 09/27/2017 DALE STAPLES Ot M54.12 RADICULOPATHY, CERVICAL REGION 09/27/2017 DALE STAPLES Ot M54.16 RADICULOPATHY, LUMBAR REGION 09/27/2017 DALE STAPLES Ot M54.2 CERVICALGIA 09/27/2017 DALE STAPLES Ot 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 Procedures Code Description [place] [address] ROUTINE VENIPUNCTURE 08/15/2012 34214 LIPID PANEL 08/15/2012 JOINT INJECTION- INTERMEDIATE JOINT 08/24/2012 99919 RELATIONSHIP COUN 08/0209/07/2012 JOINT INJECTION- INTERMEDIATE JOINT 04/05/2013 JOINT INJECTION- INTERMEDIATE JOINT 07/19/2013 JOINT INJECTION- INTERMEDIATE JOINT 10/25/2013 29753 ROUTINE VENIPUNCTURE 11/20/2013 84604 CBC 11/20/2013 0798240 GFR CALC (RESULT ONLY) 11/20/2013 83794 CMP 11/20/2013 39640 LIPID PANEL 11/20/2013 45588 TSH 11/20/2013 JOINT INJECTION- INTERMEDIATE JOINT 02/14/2014 JOINT INJECTION- INTERMEDIATE JOINT 05/02/2014 J1040 DEPO MEDROL 80 MG INJ 05/02/2014 79681 ROUTINE VENIPUNCTURE 07/22/2014 29948 CBC 07/22/2014 40262 TESTOSTERONE TOTAL MALES 07/22/2014 08834 THERAPUTIC INJ SQ/IM 07/26/2014 61261 MRI EXTREMITY, UPPER RIGHT, W/O CONTRAST 07/29/2014 J1070 testosterone cypionate 100 mg/mL oil 07/29/2014 JOINT INJECTION- INTERMEDIATE JOINT 08/15/2014 Results Test Result Range Complete blood count (CBC) with automated white blood cell (WBC) differential - 09/25/17 22:35 Blood leukocytes automated count (number/volume) 7.6 10*3/uL 4.3-11.0 Blood erythrocytes automated count (number/volume) 4.72 10*6/uL 4.35-5.85 Venous blood hemoglobin measurement (mass/volume) 15.7 g/dL 13.3-17.7 Blood hematocrit (volume fraction) 45 % 40-54 Automated erythrocyte mean corpuscular volume 96 [foz_us] 80-99 Automated erythrocyte mean corpuscular hemoglobin (mass per erythrocyte) 33 pg 25-34 Automated erythrocyte mean corpuscular hemoglobin concentration measurement ( mass/volume) 35 g/dL 32-36 Automated erythrocyte distribution width ratio 12.6 % 10.0-14.5 Automated blood platelet count (count/volume) 219 10*3/uL 130-400 Automated blood platelet mean volume measurement 10.2 [foz_us] 7.4-10.4 Automated blood neutrophils/100 leukocytes 56 % 42-75 Automated blood lymphocytes/100 leukocytes 30 % 12-44 Blood monocytes/100 leukocytes 9 % 0-12 Automated blood eosinophils/100 leukocytes 4 % 0-10 Automated blood basophils/100 leukocytes 1 % 0-10 Blood neutrophils automated count (number/volume) 4.3 10*3 1.8-7.8 Blood lymphocytes automated count (number/volume) 2.3 10*3 1.0-4.0 Blood monocytes automated count (number/volume) 0.7 10*3 0.0-1.0 Automated eosinophil count 0.3 10*3/uL 0.0-0.3 Automated blood basophil count (count/volume) 0.1 10*3/uL 0.0-0.1 Comprehensive metabolic panel - 09/25/17 22:35 Serum or plasma sodium measurement (moles/volume) 135 mmol/L 135-145 Serum or plasma potassium measurement (moles/volume) 3.9 mmol/L 3.6-5.0 Serum or plasma chloride measurement (moles/volume) 101 mmol/L 98-107 Carbon dioxide 22 mmol/L 21-32 Serum or plasma anion gap determination (moles/volume) 12 mmol/L 5-14 Serum or plasma urea nitrogen measurement (mass/volume) 11 mg/dL 7-18 Serum or plasma creatinine measurement (mass/volume) 0.81 mg/dL 0.60-1.30 Serum or plasma urea nitrogen/creatinine mass ratio 14 NRG Serum or plasma creatinine measurement with calculation of estimated glomerular filtration rate > NRG Serum or plasma glucose measurement (mass/volume) 90 mg/dL 70-105 Serum or plasma calcium measurement (mass/volume) 10.0 mg/dL 8.5-10.1 Serum or plasma total bilirubin measurement (mass/volume) 0.7 mg/dL 0.1-1.0 Serum or plasma alkaline phosphatase measurement (enzymatic activity/volume) 122 U/L 40-136 Serum or plasma aspartate aminotransferase measurement (enzymatic activity/ volume) 20 U/L 5-34 Serum or plasma alanine aminotransferase measurement (enzymatic activity/volume ) 23 U/L 0-55 Serum or plasma protein measurement (mass/volume) 8.6 g/dL 6.4-8.2 Serum or plasma albumin measurement (mass/volume) 4.6 g/dL 3.2-4.5 Magnesium - 09/25/17 22:35 Magnesium 2.0 mg/dL 1.8-2.4 Serum or plasma creatine kinase measurement (enzymatic activity/volume) - 09/25 22:35 Serum or plasma creatine kinase measurement (enzymatic activity/volume) 150 U/L 30-200 Serum or plasma creatine kinase MB measurement (enzymatic activity/volume) - 22:35 Serum or plasma creatine kinase MB measurement (enzymatic activity/volume) 1.6 ng/mL <6.6 Serum or plasma troponin i.cardiac measurement (mass/volume) - 09/25/17 22:35 Serum or plasma troponin i.cardiac measurement (mass/volume) < ng/ mL <0.30 Serum or plasma thyroxine (T4) free measurement (mass/volume) - 09/25/17 22:35 Serum or plasma thyroxine (T4) free measurement (mass/volume) 1.02 ng/dL 0.70-1.48 Serum or plasma thyrotropin measurement by detection limit <=0.05 miu/l (units/ volume) - 09/25/17 22:35 Serum or plasma thyrotropin measurement by detection limit <=0.05 miu/l (units/ volume) 5.23 u[iU]/mL 0.35-4.94 Encounters ACCT No. Visit Date/Time Discharge Status Pt. Type Provider Facility Loc./Unit Complaint [id number] 08/22/2014 11:54:00 08/22/2014 23:59:59 CLS Outpatient ALEXANDREA EUGENE APRNTONE Anna [id number] 08/15/2014 15:28:00 08/15/2014 23:59:59 CLS Outpatient LUIS M EUGENE APRN Wilfrido [id number] 07/26/2014 17:03:00 07/26/2014 23:59:59 CLS Outpatient JOSE DOCHYNA [id number] 07/22/2014 12:41:00 07/22/2014 23:59:59 CLS Outpatient ESTHER PLATFORM OPERATIONS DIRECTORMANJIT Sanches S [id number] 05/02/2014 15:26:00 05/02/2014 23:59:59 CLS Outpatient ALEXANDREA EUGENE APRNTONE Anna [id number] 04/02/2014 11:38:00 04/02/2014 23:59:59 CLS Outpatient MANJIT SANTANA APRN [id number] 02/14/2014 13:17:00 02/14/2014 23:59:59 CLS Outpatient JOSE DOCHYNA [id number] 02/14/2014 12:46:00 02/14/2014 23:59:59 CLS Outpatient JOSE DOCHYNA [id number] 01/08/2014 10:07:00 01/08/2014 23:59:59 CLS Outpatient BRIDGER FERNANDEZ APRN Myron [id number] 11/20/2013 08:41:00 11/20/2013 23:59:59 CLS Outpatient MANJIT SANTANA APRN S [id number] 10/25/2013 13:00:00 10/25/2013 23:59:59 CLS Outpatient JOSE DOCHYNA [id number] 07/19/2013 13:53:00 07/19/2013 23:59:59 CLS Outpatient JOSE DOCHYNA [id number] 09/06/2012 14:01:00 09/06/2012 23:59:59 CLS Outpatient [id number] 08/24/2012 12:28:00 08/24/2012 23:59:59 CLS Outpatient JOSE DOCHYNA [id number] 08/15/2012 08:43:00 08/15/2012 23:59:59 CLS Outpatient MANJIT SANTANA APRN S [id number] 04/05/2013 12:46:00 Document Registration [id number] 12/28/2012 17:26:00 Document Registration [id number] 09/25/2017 21:25:00 09/26/2017 00:28:00 DIS Emergency DALE STAPLES [facility] ER BP 168/114 TOOK BP AT [place] ON MACHINE [id number] 08/06/2014 10:47:00 08/06/2014 23:59:59 CLS Outpatient MANJIT SANTANA [facility] RAD RT SHOULDER PAIN [id number] 06/21/2018 14:32:00 ACT Emergency ANUEL BENJI [facility] ER RT. ARM INJURY [id number] 11/21/2017 09:40:00 11/21/2017 23:59:59 CLS Outpatient MANJIT SANTANA APRN [facility]
--- NOTE | 2018-06-21 15:13 | ED Upper Extremity ---
General Chief Complaint: Laceration Stated Complaint: RT. ARM INJURY Nursing Triage Note: ARRIVED VIA AMB TO ROOM 10. STATES HE WAS MOVING A WASHER AND A SCREW CAUGHT HIS ARM TEARTING HIS SKIN. Nursing Sepsis Screen: No Definite Risk Source: patient Exam Limitations: no limitations History of Present Illness Date Seen by Provider: Jun 21, 2018 Time Seen by Provider: 15:00 Initial Comments Patient is a 47-year-old male who presents to the emergency room with complaints of a laceration to the right forearm. He was moving a heating unit when a screw sticking out, his right forearm and/or his skin. He's got a 4 cm U- shaped laceration to his right forearm. Onset: just prior to arrival Pain/Injury Location: right forearm Method of Injury: incised Allergies and Home Medications Allergies Coded Allergies: No Known Drug Allergies (Verified Allergy, Unknown, 05/06/08) Home Medications Prednisone 20 Mg Tab, 40 MG PO DAILY Prescribed by: DALE DOBBINS on 09/26/17 0004 Sulfamethoxazole/Trimethoprim 1 Each Tablet, 1 EACH PO BID Prescribed by: BENJI AGEE on 06/21/18 1611 Patient Home Medication List Home Medication List Reviewed: Yes Review of Systems Constitutional: no symptoms reported, see HPI Skin: see HPI, other All Other Systems Reviewed Negative Unless Noted: Yes Past Bfndrug-Faftxb-Vdfevy Hx Past Med/Social Hx: Reviewed Nursing Past Med/Soc Hx Patient Social History Alcohol Use: Occasionally Uses Alcohol Beverage of Choice: Beer Recreational Drug Use: Yes Drug of Choice: POT Smoking Status: Current Everyday Smoker Type Used: Cigarettes 2nd Hand Smoke Exposure: Yes Recent Foreign Travel: No Contact w/Someone Who Travel: No Recent Infectious Disease Expo: No Recent Hopitalizations: No Immunizations Up To Date Tetanus Booster (TDap): Unknown Seasonal Allergies Seasonal Allergies: No Past Medical History Surgeries: No Respiratory: No Cardiac: Yes Hypertension Neurological: Yes (herniated disc) Reproductive Disorders: No Gastrointestinal: No Musculoskeletal: No Endocrine: No Cancer: No Psychosocial: No Integumentary: No Blood Disorders: No Family Medical History Reviewed Nursing Family Hx No Pertinent Family Hx Physical Exam Vital Signs Vital Signs - First Documented 06/21/18 14:45 Temp 98.0 Pulse 98 Resp 16 B/P (MAP) 164/84 (110) Pulse Ox 92 O2 Delivery Room Air Capillary Refill : Less Than 3 Seconds Height, Weight, BMI Height: 6'1.00" Weight: 230lbs. 0oz. 104.364930ez; BMI Method:Estimated General Appearance: WD/WN, no apparent distress Cardiovascular: normal peripheral pulses, regular rate, rhythm, no edema, no gallop, no JVD, no murmur Respiratory: chest non-tender, lungs clear, normal breath sounds, no respiratory distress, no accessory muscle use Elbow/Forearm: Right, pain, swelling (laceration) Neurologic/Psychiatric: alert, normal mood/affect, oriented x 3 Skin: normal color, warm/dry Procedures/Interventions Wound Location: Upper Extremities Wound Length (cm): 4 Wound's Depth, Shape: superficial, flap, sub Q Irrigated w/ Saline (ccs): 400 Anesthesia: 1% Lidocaine Volume Anesthetic (ccs): 5 Wound Debrided: minimal Suture: Prolene Suture Size: 4-0 Number of Sutures: 10 Progress The wound was cleaned and irrigated with approximately 2-300 mL of saline. The wound was anesthetized with approximately 5 mL of lidocaine without epinephrine. The wound was closed with 10 simple interrupted sutures of 4-0 Prolene. The patient will be put on antibiotics as prophylaxis for nature of the wound. Progress/Results/Core Measures Results/Orders My Orders Orders - BENJI AGEE Lidocaine 1% Inj 20 Ml (Xylocaine 1% Inj (06/21/18 15:15) Dipht,Pertuss(Acell),Tet Adult (Boostrix (06/21/18 15:15) Ondansetron Oral Dissolve Tab (Zofran O (06/21/18 15:30) Medications Given in ED Current Medications Medications Dose Ordered Sig/Yesy Route Start Time Stop Time Status Last Admin Dose Admin Diphtheria/ Tetanus/Acell Pertussis 0.5 ml ONCE ONCE IM 06/21/18 15:15 06/21/18 15:16 DC 06/21/18 15:23 0.5 ML Lidocaine HCl 20 ml ONCE ONCE INJ 06/21/18 15:15 06/21/18 15:16 DC 06/21/18 15:23 20 ML Ondansetron Base 8 mg ONCE ONCE PO 06/21/18 15:30 06/21/18 15:31 DC 06/21/18 15:30 8 MG Vital Signs/I&O 06/21/18 06/21/18 14:45 16:21 Temp 98.0 98.0 Pulse 98 98 Resp 16 16 B/P (MAP) 164/84 (110) 164/84 (110) Pulse Ox 92 92 O2 Delivery Room Air Blood Pressure Mean: 110 Departure Impression Primary Impression: Laceration Disposition: 01 HOME, SELF-CARE Condition: Stable/Unchanged Departure-Patient Inst. Decision time for Depature: 16:10 Referrals: MANJIT SANTANA (PCP) Primary Care Physician [facility] (Family) Primary Care Physician Patient Instructions: Laceration Repair With Stitches (DC) Add. Discharge Instructions: Take medication as directed. Watch for signs of infection such as increased redness, swelling, drainage. Return back to the emergency room in 7 days for suture removal. Ibuprofen and Tylenol as needed by the bottle for pain relief. Return back to the emergency room for any worsening symptoms or concerns as needed. All discharge instructions reviewed with patient and/or family. Voiced understanding. Scripts Sulfamethoxazole/Trimethoprim (Bactrim Ds Tablet) 1 Each Tablet 1 EACH PO BID for 7 Days, #14 TAB Prov: BENJI AGEE 06/21/18 Images Extremities-Upper 1 - Laceration, Other-See Progress Note Progress U-shaped 4 cm laceration to the right forearm. There is not a diagram option for the right arm. This is just used for location. BENJI AGEE Jun 21, 2018 15:13
[2018-06-21] MEDS: LIDOCAINE 1% INJ 20 ML 20 ML VIAL INJ ONE (15:23)
[2018-06-21] MEDS: TETANUS,DIPTH,PERTUSS P/F (BOOSTRIX) 0.5 ML VIAL IM ONE (15:23)
[2018-06-21] MEDS: ONDANSETRON 8 MG (ZOFRAN) ORAL DISSOLVE TAB PO ONE (15:30)
[2018-06-21] MEDS ORDERED: SULF1TAB35 PO (16:11)
[2018-06-21 16:21] VITALS: BP 164/84
== END 2018-06-21 16:21 | disposition home or self-care (01) ==
LOC: EDUNIT# 14:30 → ER 14:32
DX: S51.811A Laceration without foreign body of right forearm, initial encounter (principal); I10 Essential (primary) hypertension; F12.10 Cannabis abuse, uncomplicated; F17.210 Nicotine dependence, cigarettes, uncomplicated; Z23 Encounter for immunization; Z79.52 Long term (current) use of systemic steroids; W26.8XXA Contact with other sharp object(s), not elsewhere classified, initial encounter
CPT/HCPCS: 90715

== ENCOUNTER 2019-03-26 03:48 | Emergency (ER) | payer SELFPAY ==
[~2019-03-26] VITALS: Ht 185.4 cm; Wt 117.9 kg
[~2019-03-26 03:48] MED LIST changes: +HYDR-3812; +SULF1TAB35 PO
[2019-03-26] MEDS ORDERED: diphenhydrAMINE 50 MG/ML INJ (BENADRYL) IM STA (04:20)
[2019-03-26] MEDS ORDERED: FAMOTIDINE 20 MG (PEPCID) TABLET PO STA (04:20)
--- NOTE | 2019-03-26 04:27 | ED Integumentary General ---
General Chief Complaint: Allergic Reaction Stated Complaint: HIVES EVERYWHERE Source: patient Exam Limitations: no limitations History of Present Illness Date Seen by Provider: Mar 26, 2019 Time Seen by Provider: 04:13 Initial Comments Here with report of acute onset of hives and shortness of breath at about 2:30 AM. He woke up and drink some Pepsi. He states that did not taste right and drink some water. Ultimately had a bowel movement and then vomited. Noted that he was red all over and itching and then also had facial swelling and itching in his throat. He did not take anything to stop it and it ultimately settled down on its own. States he is a little better now but was very concerned and still lives. Ever had anything like this before. Does not know that he is allergic to anything. 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 Timing/Duration: this morning Severity: moderate Location: generalized Possible Cause: no cause identified Modifying Factors: improves with other (time) Associated Symptoms: hives, rash, tingling Allergies and Home Medications Allergies Coded Allergies: No Known Drug Allergies (Verified Allergy, Unknown, 05/06/08) Home Medications Prednisone 20 Mg Tab, 40 MG PO DAILY Prescribed by: DALE DOBBINS on 09/26/17 0004 Prednisone 20 Mg Tab, 40 MG PO DAILY Prescribed by: HOMA ALONZO on 03/26/19 0428 Sulfamethoxazole/Trimethoprim 1 Each Tablet, 1 EACH PO BID Prescribed by: BENJI AGEE on 06/21/18 1611 Patient Home Medication List Home Medication List Reviewed: Yes Review of Systems Review of Systems Constitutional: see HPI; No chills, No fever Respiratory: see HPI, short of breath; No wheezing Cardiovascular: No chest pain, No edema Gastrointestinal: No abdominal pain; nausea, vomiting Genitourinary: no symptoms reported Musculoskeletal: no symptoms reported Skin: see HPI, change in color, pruritus, rash Psychiatric/Neurological: No Symptoms Reported All Other Systems Reviewed Negative Unless Noted: Yes Past Nogxviy-Xvxtaf-Qzkdis Hx Past Med/Social Hx: Reviewed Nursing Past Med/Soc Hx Patient Social History Alcohol Use: Occasionally Uses Alcohol Beverage of Choice: Beer Drug of Choice: POT Smoking Status: Current Everyday Smoker Type Used: Cigarettes 2nd Hand Smoke Exposure: Yes Recent Foreign Travel: No Contact w/Someone Who Travel: No Recent Hopitalizations: No Immunizations Up To Date Tetanus Booster (TDap): Unknown Seasonal Allergies Seasonal Allergies: No Past Medical History Surgeries: No Respiratory: No Cardiac: Yes Hypertension Neurological: Yes (herniated disc) Reproductive Disorders: No Gastrointestinal: No Musculoskeletal: No Endocrine: No Cancer: No Psychosocial: No Integumentary: No Blood Disorders: No Family Medical History Reviewed Nursing Family Hx No Pertinent Family Hx Physical Exam Vital Signs Capillary Refill : General Appearance: WD/WN, no apparent distress HEENT: PERRL/EOMI, pharynx normal Neck: full range of motion, supple Respiratory: no respiratory distress, wheezing (a few scattered) Gastrointestinal: non tender, soft Extremities: non-tender, normal inspection Neurologic/Psychiatric: alert Skin: warm/dry Skin Problem Location: torso Skin Problem Character: erythema, urticarial Procedures/Interventions Suture Size: 4-0 Progress/Results/Core Measures Results/Orders My Orders Orders - HOMA ALONZO MD Famotidine Tablet (Pepcid Tablet) (03/26/19 04:20) Diphenhydramine Injection (Benadryl Inje (03/26/19 04:20) Dexamethasone Injection (Decadron Inject (03/26/19 04:30) Medications Given in ED Current Medications Medications Dose Ordered Sig/Yesy Route Start Time Stop Time Status Last Admin Dose Admin Dexamethasone Sodium Phosphate 10 mg ONCE ONCE IM 03/26/19 04:30 03/26/19 04:31 DC 03/26/19 04:32 10 MG Progress Progress Note : Progress Note Seen and evaluated. Decadron 10 mg IM, Benadryl 50 mg IM and famotidine 20 mg by mouth ordered. Monitor patient. 0500: Overall feeling better. Discharged home with return precautions. Patient verbalize understanding instructions and agreement with plan. Departure Impression Primary Impression: Allergic reaction Qualified Codes: T78.40XA - Allergy, unspecified, initial encounter Disposition: 01 HOME, SELF-CARE Condition: Improved Departure-Patient Inst. Decision time for Depature: 05:00 Referrals: NO,LOCAL PHYSICIAN (PCP) Primary Care Physician [facility] (Family) Primary Care Physician Patient Instructions: Anaphylaxis (DC), Hives (DC) Add. Discharge Instructions: All discharge instructions reviewed with patient and/or family. Voiced understanding. Take medications as directed. You may take Pepcid or the generic famotidine 20 mg daily for the next 4 to 5 days. You may take Benadryl or the generic diphenhydramine 25 mg every 4-6 hours as needed for itching. Follow up with your Dr. in a few days for recheck. Return for increasing hives, breathing problems, swelling in your mouth or throat, vomiting, weakness or other concerns as needed. Scripts Prednisone (Prednisone) 20 Mg Tab 40 MG PO DAILY, #8 TAB 0 Refills Prov: HOMA ALONZO MD 03/26/19 HOMA ALONZO MD Mar 26, 2019 04:27
[2019-03-26] MEDS ORDERED: PRD20T PO (04:28)
[2019-03-26] MEDS ORDERED: DEXAMETHASONE 10 MG/ML (DECADRON) 1 ML VIAL IM ONE (04:30)
[2019-03-26 05:04] VITALS: BP 121/99
== END 2019-03-26 05:05 | disposition home or self-care (01) ==
LOC: EDUNIT# 03:48 → ER 03:50
DX: T78.40XA Allergy, unspecified, initial encounter (principal); I10 Essential (primary) hypertension; F17.210 Nicotine dependence, cigarettes, uncomplicated; Z79.52 Long term (current) use of systemic steroids
CPT/HCPCS: 99284

== ENCOUNTER 2020-04-22 14:00 | Outpatient (CLI) | payer BC ==
[~2020-04-22] VITALS: Ht 185.5 cm; Wt 95.5 kg
[~2020-04-22 14:00] MED LIST changes: +ACHD5005; -HYDR-3812
[2020-04-22] MEDS ORDERED: GABA300C PO (14:15)
[2020-04-22] MEDS ORDERED: CELE400C PO (14:15)
[2020-04-22] MEDS ORDERED: ALPR0.5T PO (14:15)
== END 2020-04-22 14:16 | disposition home or self-care (01) ==
LOC: PREOP 14:00
PROVIDERS: ATTEND Surgery
DX: Z01.818 Encounter for other preprocedural examination (principal)

== ENCOUNTER → 2020-07-08 | Outpatient (CLI) | payer BC ==
[~2020-07-08] MED LIST changes: +ALPR0.5T PO; +CELE400C PO; +GABA300C PO
--- NOTE | 2020-07-08 15:32 | Diagnostic Imaging Report ---
PROCEDURE: MR imaging cervical spine without contrast. TECHNIQUE: Multiplanar, multisequence MR imaging of the cervical spine was performed without contrast. INDICATION: Neck pain. The previous MRI of the cervical spine exam of 10/21/2011 noted fairly severe degenerative disc and bony disease at C5-C6. There is mild central stenosis at this level. The CT cervical spine exam of 09/25/2017 noted degenerative disc and bony disease at both C5-C6 and C6-C7. On this study there is again mild central stenosis at the C5-C6 level. The AP diameter of the thecal sac at C5-C6 now measures 7.9 mm opposed to 8.4 mm on the previous study. There is also neural foraminal narrowing bilaterally. At the C6-C7 level the AP diameter of the thecal sac measures 7.8 mm as opposed to 11.9 mm on the prior study. There is also neural foraminal narrowing bilaterally at C6-C7. There is a disc bulge centrally at the C4-C5 level and there is slight anterior translation of C4 with respect to C5. The AP diameter of the thecal sac is narrowed to 10.4 mm as opposed to 11.5 mm on the previous study. There is moderate narrowing of the neural foramen on the left at this level and mild neuroforaminal narrowing on the right. The remainder of the cervical spine is unremarkable for spinal stenosis or nerve root encroachment. On the T2 sagittal series of the prior exam there was increased signal within the vertebral body of C5 and the posterior superior region of C6. On this exam there is only a small amount of residual increased signal within the C5 vertebral body. Conversely there is increased signal throughout the entire C6 vertebral body and there is now a new area of increased signal along the posterior superior endplate of C7. I suspect these signal abnormalities are related to degenerative disease alone. There is no clear evidence for an acute injury. There is no sign of a cord lesion either. There is no paraspinal mass visualized. IMPRESSION: 1. The degenerative changes involving the cervical spine have progressed since the prior exam of 2011. Specifically, there is now spinal stenosis at C6-C7 and borderline stenosis at C4-C5. The stenosis at the C5-C6 level seen previously has also progressed. In addition there is neural foraminal narrowing at all three of these levels. 2. The altered signal within the vertebral bodies of C5, C6 and C7 is most likely due to degenerative disease. There is no acute bony abnormality appreciated. Dictated by: Dictated on workstation # [id number]
== END ==
LOC: RAD 13:13
PROVIDERS: ATTEND Internal Medicine
DX: M47.22 Other spondylosis with radiculopathy, cervical region (principal)
CPT/HCPCS: 72141

== ENCOUNTER 2020-10-30 20:21 | Emergency (ER) | payer BC ==
[~2020-10-30] VITALS: Ht 185.5 cm; Wt 99.8 kg
--- NOTE | 2020-10-30 20:29 | ED General ---
General Stated Complaint: POSSIBLE ALLERGIC REACTION Source of Information: Patient Exam Limitations: No Limitations History of Present Illness Date Seen by Provider: Oct 30, 2020 Time Seen by Provider: 20:21 Initial Comments To ER with reports of possible allergic reaction that began 30 minutes to 1 hour prior to arrival. He developed some shortness of breath as well as diffuse itching and facial erythema, "heartburn" as well. No known drug or food allergens. Denies any abdominal cramping. Currently his only medication is Tylenol 3 which she has been on for about 3 months for his neck pain. Denies any sensation of throat swelling or tongue swelling. Smokes 2 pack of cigarettes per day. Timing/Duration: 1-2 Days Severity: Moderate Associated Systoms: Shortness of Air Allergies and Home Medications Allergies Coded Allergies: carisoprodol (Verified Allergy, Unknown, Hives, 04/22/20) Home Medications Alprazolam 0.5 Mg Tablet, 0.5 MG PO BID PRN for ANXIETY, (Reported) Celecoxib 400 Mg Capsule, 400 MG PO DAILY, (Reported) Gabapentin 300 Mg Capsule, 300 MG PO TID, (Reported) Patient Home Medication List Home Medication List Reviewed: Yes Review of Systems Review of Systems Constitutional: see HPI EENTM: see HPI Respiratory: see HPI, short of breath Cardiovascular: no symptoms reported Genitourinary: no symptoms reported Musculoskeletal: no symptoms reported Skin: see HPI, pruritus, rash Psychiatric/Neurological: No Symptoms Reported Hematologic/Lymphatic: No Symptoms Reported Immunological/Allergic: no symptoms reported Past Munlxvj-Tjucxj-Islihn Hx Patient Social History Alcohol Beverage of Choice: Beer Drug of Choice: POT Type Used: Cigarettes 2nd Hand Smoke Exposure: Yes Recent Hopitalizations: No Immunizations Up To Date Tetanus Booster (TDap): Unknown Seasonal Allergies Seasonal Allergies: Yes Past Medical History Surgeries: Yes (hand laceration) Appendectomy Respiratory: No Cardiac: No Hypertension Neurological: Yes (heat stroke 2019) Reproductive Disorders: No Genitourinary: No Gastrointestinal: No Musculoskeletal: No Endocrine: No HEENT: No Cancer: No Psychosocial: Yes Anxiety Integumentary: No Blood Disorders: No Family Medical History No Pertinent Family Hx Physical Exam Vital Signs Vital Signs - First Documented 10/30/20 20:40 Temp 36.6 Pulse 82 Resp 20 B/P (MAP) 166/109 (128) Pulse Ox 95 O2 Delivery Room Air Capillary Refill : Height, Weight, BMI Height: 6'1.00" Weight: 260lbs. 0oz. [id number]; 27.75 BMI Method:Stated General Appearance: No Apparent Distress, WD/WN, Other (States that symptoms have improved a little bit upon arrival to ER bed the facial redness is still present to some degree as is the itching.) Eyes: Bilateral Eye Normal Inspection, Bilateral Eye PERRL, Bilateral Eye EOMI Neck: Full Range of Motion, Normal Inspection Respiratory: No Accessory Muscle Use, No Respiratory Distress, Decreased Breath Sounds, Wheezing Cardiovascular: Regular Rate, Rhythm, Normal Peripheral Pulses Gastrointestinal: Normal Bowel Sounds, Non Tender, Soft Extremity: Normal Capillary Refill, Normal Inspection Neurologic/Psychiatric: Alert, Oriented x3 Skin: Normal Color, Warm/Dry Comments Alert and oriented no distress speaks in full sentences oxygen saturation 96% room air. Wheezing on exam is not unexpected given his 2 pack/day smoking history. No visible rash. There is some facial erythema that is slight. Blood pressure is 180/120. He is without tachycardia. Procedures/Interventions Suture Size: 4-0 Progress/Results/Core Measures Suspected Sepsis SIRS Temperature: Pulse: Respiratory Rate: Laboratory Tests 10/30/20 20:57: White Blood Count 8.8 Blood Pressure / Mean: Laboratory Tests 10/30/20 20:57: Creatinine 0.79, Platelet Count 209, Total Bilirubin 0.6 Results/Orders Lab Results Laboratory Tests Test 10/30/20 20:57 Range/Units White Blood Count 8.8 4.3-11.0 10^3/uL Red Blood Count 4.40 4.30-5.52 10^6/uL Hemoglobin 15.2 13.3-17.7 g/dL Hematocrit 45 40-54 % Mean Corpuscular Volume 103 H 80-99 fL Mean Corpuscular Hemoglobin 35 H 25-34 pg Mean Corpuscular Hemoglobin Concent 34 32-36 g/dL Red Cell Distribution Width 12.0 10.0-14.5 % Platelet Count 209 130-400 10^3/uL Mean Platelet Volume 10.5 9.0-12.2 fL Immature Granulocyte % (Auto) 1 % Neutrophils (%) (Auto) 66 42-75 % Lymphocytes (%) (Auto) 21 12-44 % Monocytes (%) (Auto) 9 0-12 % Eosinophils (%) (Auto) 3 0-10 % Basophils (%) (Auto) 1 0-10 % Neutrophils # (Auto) 5.9 1.8-7.8 10^3/uL Lymphocytes # (Auto) 1.8 1.0-4.0 10^3/uL Monocytes # (Auto) 0.8 0.0-1.0 10^3/uL Eosinophils # (Auto) 0.3 0.0-0.3 10^3/uL Basophils # (Auto) 0.1 0.0-0.1 10^3/uL Immature Granulocyte # (Auto) 0.0 0.0-0.1 10^3/uL Sodium Level 138 135-145 MMOL/L Potassium Level 4.0 3.6-5.0 MMOL/L Chloride Level 102 98-107 MMOL/L Carbon Dioxide Level 23 21-32 MMOL/L Anion Gap 13 5-14 MMOL/L Blood Urea Nitrogen 13 7-18 MG/DL Creatinine 0.79 0.60-1.30 MG/DL Estimat Glomerular Filtration Rate > 60 BUN/Creatinine Ratio 16 Glucose Level 101 70-105 MG/DL Calcium Level 9.5 8.5-10.1 MG/DL Corrected Calcium 9.3 8.5-10.1 MG/DL Total Bilirubin 0.6 0.1-1.0 MG/DL Aspartate Amino Transf (AST/SGOT) 23 5-34 U/L Alanine Aminotransferase (ALT/SGPT) 24 0-55 U/L Alkaline Phosphatase 159 H 40-136 U/L Troponin I < 0.028 <0.028 NG/ML Total Protein 8.3 H 6.4-8.2 GM/DL Albumin 4.3 3.2-4.5 GM/DL My Orders Claudia - CHERYL KELSEY OENOLOGIST Diphenhydramine Injection (Benadryl Inje (10/30/20 20:30) Albuterol/Ipra Inhalation Soln (Duoneb I (10/30/20 20:30) Svn Small Volume Nebulizer (10/30/20 20:27) Dexamethasone Injection (Decadron Inje (10/30/20 20:30) Antacid Suspension (Mylanta Suspension (10/30/20 21:00) Lidocaine 2% Viscous 15 Ml (Xylocaine Vi (10/30/20 21:00) Troponin I (10/30/20 20:51) Ekg Tracing (10/30/20 20:51) Cbc With Automated Diff (10/30/20 20:51) Comprehensive Metabolic Panel (10/30/20 20:51) Chest 1 View, Ap/Pa Only (10/30/20 20:51) Prednisone Tablet (Deltasone Tablet) (10/30/20 22:00) Medications Given in ED Current Medications Medications Dose Ordered Sig/Yesy Route Start Time Stop Time Status Last Admin Dose Admin Al Hydrox/Mg Hydrox/Simethicone 30 ml ONCE ONCE PO 10/30/20 21:00 10/30/20 21:01 DC 10/30/20 21:00 30 ML Albuterol/ Ipratropium 3 ml ONCE ONCE INH 10/30/20 20:30 10/30/20 20:31 DC 10/30/20 20:33 3 ML Dexamethasone Sodium Phosphate 10 mg ONCE ONCE IM 10/30/20 20:30 10/30/20 20:31 DC 10/30/20 20:34 10 MG Diphenhydramine HCl 50 mg ONCE ONCE IM 10/30/20 20:30 10/30/20 20:31 DC 10/30/20 20:33 50 MG Lidocaine HCl 15 ml ONCE ONCE PO 10/30/20 21:00 10/30/20 21:01 DC 10/30/20 21:00 15 ML Vital Signs/I&O 10/30/20 20:40 Temp 36.6 Pulse 82 Resp 20 B/P (MAP) 166/109 (128) Pulse Ox 95 O2 Delivery Room Air Capillary Refill : Diagnostic Imaging Diagonstic Imaging: Xray Plain Films/CT/US/NM/MRI: chest Comments NAME: TIANNA COLEY [facility] REC#: [id number] PT STATUS: REG ER : 1970 PHYSICIAN: CHERYL KELSEY APRN ADMIT DATE: 10/30/20/ER Signed Date of Exam:10/30/20 CHEST 1 VIEW, AP/PA ONLY EXAMINATION: Chest 1 view HISTORY: Cough and shortness of breath COMPARISON: Chest radiograph 09/25/2017 FINDINGS: Heart size and pulmonary vasculature are normal. The lungs are clear without consolidation, pleural effusion, or pneumothorax. The osseous structures are intact. IMPRESSION: 1. No acute radiographic abnormality in the chest. Dictated by: Dictated on workstation # [id number] Dict: 10/30/202110 Trans: 10/30/202117 CV [id number] Interpreted by: KAVYA MONTERROSO DO Electronically signed by: KAVYA MONTERROSO DO 10/30/202117 Departure Communication (Admissions) 2114-heartburn is much improved though not entirely gone after administration of a GI cocktail. Itching is absent. Vitals are stable. 2153-Heartburn is completely gone. BP down to 137/90. No itching. Will dc to home. Impression Primary Impression: Generalized pruritus Disposition: HOME, SELF-CARE Condition: Improved Departure-Patient Inst. Decision time for Depature: 21:44 Referrals: FEDE LEGGETT MD (PCP/Family) Primary Care Physician Patient Instructions: Itchy Skin Add. Discharge Instructions: Return promptly to the emergency room for any difficulty breathing, chest pain, severe itching or any of the allergic reaction symptoms you experienced tonight if these are unrelieved by Benadryl at home. CHERYL KELSEY OENOLOGIST Oct 30, 2020 20:29
[2020-10-30] MEDS ORDERED: diphenhydrAMINE 50 MG/ML INJ (BENADRYL) IM ONE (20:30)
[2020-10-30] MEDS ORDERED: RT-ALBUTEROL/IPRATROPIUM 3 ML (DUONEB) VIAL INH ONE (20:30)
[2020-10-30] MEDS ORDERED: LIDOCAINE 2% VISCOUS 15 ML UDC PO ONE (21:00)
[2020-10-30] MEDS ORDERED: ANTACID SUSP 30 ML UDC (MYLANTA) PO ONE (21:00)
[2020-10-30 21:15] LABS: BASOPHILS # (AUTO) 0.1 10^3/uL (0.0-0.1); BASOPHILS % (AUTO) 1 % (0-10); EOSINOPHILS # (AUTO) 0.3 10^3/uL (0.0-0.3); EOSINOPHILS % (AUTO) 3 % (0-10); HEMATOCRIT 45 % (40-54); HEMOGLOBIN 15.2 g/dL (13.3-17.7); LYMPHOCYTES # (AUTO) 1.8 10^3/uL (1.0-4.0); LYMPHOCYTES % (AUTO) 21 % (12-44); MEAN CORPUSCULAR HEMOGLOBIN 35 pg (25-34); MEAN CORPUSCULAR HGB CONC 34 g/dL (32-36); MEAN CORPUSCULAR VOLUME 103 fL (80-99); MEAN PLATELET VOLUME 10.5 fL (9.0-12.2); MONOCYTES # (AUTO) 0.8 10^3/uL (0.0-1.0); MONOCYTES % (AUTO) 9 % (0-12); NEUTROPHILS # (AUTO) 5.9 10^3/uL (1.8-7.8); NEUTROPHILS % (AUTO) 66 % (42-75); PLATELET COUNT 209 10^3/uL (130-400); WHITE BLOOD COUNT 8.8 10^3/uL (4.3-11.0)
--- NOTE | 2020-10-30 21:17 | Diagnostic Imaging Report ---
EXAMINATION: Chest 1 view HISTORY: Cough and shortness of breath COMPARISON: Chest radiograph 09/25/2017 FINDINGS: Heart size and pulmonary vasculature are normal. The lungs are clear without consolidation, pleural effusion, or pneumothorax. The osseous structures are intact. IMPRESSION: 1. No acute radiographic abnormality in the chest. Dictated by: Dictated on workstation # [id number]
[2020-10-30 21:37] LABS: ALANINE AMINOTRANSFERASE 24 U/L (0-55); ALBUMIN 4.3 GM/DL (3.2-4.5); ALKALINE PHOSPHATASE 159 U/L (40-136); BILIRUBIN,TOTAL 0.6 MG/DL (0.1-1.0); BUN/CREATININE RATIO 16; CALCIUM 9.5 MG/DL (8.5-10.1); CARBON DIOXIDE 23 MMOL/L (21-32); CHLORIDE 102 MMOL/L (98-107); CREATININE SERUM 0.79 MG/DL (0.60-1.30); GFR ESTIMATED > 60; GLUCOSE 101 MG/DL (70-105); SODIUM 138 MMOL/L (135-145); TOTAL PROTEIN 8.3 GM/DL (6.4-8.2)
[2020-10-30] MEDS ORDERED: predniSONE 20 MG TAB PO ONE (22:00)
[2020-10-30 22:04] VITALS: BP 141/93
== END 2020-10-30 22:04 | disposition home or self-care (01) ==
LOC: EDUNIT# 20:21 → ER 20:23
DX: L29.8 Other pruritus (principal); I10 Essential (primary) hypertension; F41.9 Anxiety disorder, unspecified; Z77.22 Contact with and (suspected) exposure to environmental tobacco smoke (acute) (chronic); Z88.8 Allergy status to other drugs, medicaments and biological substances
CPT/HCPCS: 36415; 71045; 80053; 84484; 85025; 93005

== ENCOUNTER → 2020-11-07 | Outpatient (CLI) | payer BC ==
--- NOTE | 2020-11-07 09:32 | Diagnostic Imaging Report ---
PROCEDURE: MRI right joint upper extremity without contrast. TECHNIQUE: Multiplanar, multisequence non contrast-enhanced MRI of the right upper extremity was accomplished. INDICATION: Right shoulder pain COMPARISON: 08/06/2014 FINDINGS: There is motion artifact on multiple sequences. No acute fracture or dislocation is seen in the right shoulder. There is slight superior migration of the humeral head. There is severe degenerative change in the acromioclavicular joint with fluid in the joint. There is no glenohumeral joint effusion. There is a high-grade partial thickness tear of the anterior supraspinatus tendon measuring about 1.3 cm in width, with a small 5 mm full-thickness component. There is medial retraction of about 1 cm. There is a small high-grade partial thickness tear of the infraspinatus tendon measuring about 8 mm in width (image 9 series 10). The teres minor and subscapularis tendons appear intact. There is moderate atrophy of the infraspinatus muscle. The long head of the biceps tendon appears normal in course and signal. The glenoid labrum is suboptimally evaluated in the absence of intra-articular contrast but there does appear to be some irregularity of the labrum which may be degenerative. No paralabral cyst is seen. The acromion has a curved undersurface with mild subacromial spurring. The coracoclavicular and coracoacromial ligaments are intact. There is low-grade partial intrasubstance tearing in the left trapezius muscle. No soft tissue masses or fluid collections are seen. IMPRESSION: 1. High-grade partial thickness tears in the right rotator cuff with a small full-thickness tear in the supraspinatus tendon. 2. Moderate atrophy of the infraspinatus muscle. 3. Severe degenerative change in the right acromioclavicular joint. 4. Small intrasubstance tear of the left trapezius muscle. Dictated by: Dictated on workstation # [id number]
== END ==
LOC: RAD 08:00
PROVIDERS: ATTEND Physician Assistant
DX: M75.101 Unspecified rotator cuff tear or rupture of right shoulder, not specified as traumatic (principal); M19.011 Primary osteoarthritis, right shoulder; S29.012A Strain of muscle and tendon of back wall of thorax, initial encounter
CPT/HCPCS: 73221

== ENCOUNTER → 2021-10-29 | Outpatient (RCR) | payer OTHER ==
[~2021-10-29] VITALS: Ht 185 cm; Wt 102.0 kg
[~2021-10-29] MED LIST changes: +CYCL10TA25 PO; -CYCL10TA9 PO; +REGADENOSON 0.4 MG/5 ML SYR (LEXISCAN) IV ONE; -SULF1TAB35 PO; +SULF1TAB38 PO
[2021-10-29] MEDS: CATHETER FLUSH 10 ML SYR IVP PRN ×2 (07:53→09:13)
[2021-10-29 09:01] VITALS: BP 157/104
== END | disposition home or self-care (01) ==
LOC: CARD 12:00
PROVIDERS: ATTEND Internal Medicine Cardiovascular Disease
DX: I47.1 Supraventricular tachycardia (principal)
CPT/HCPCS: 78452; 93017

== ENCOUNTER 2021-11-08 23:11 | Inpatient (IN) | payer OTHER ==
[~2021-11-08] VITALS: Ht 185.5 cm; Wt 105.4 kg
[~2021-11-08 23:11] MED LIST changes: -REGADENOSON 0.4 MG/5 ML SYR (LEXISCAN) IV ONE
[2021-11-08] MEDS ORDERED: AMIODARONE 450 MG/9 ML (CORDARONE) VIAL IV ONE (23:26)
[2021-11-08] MEDS ORDERED: AMIODARONE (BOLUS) 150 MG/3 ML IV ONE (23:26)
[2021-11-08] MEDS ORDERED: D5W IV SOLUTION (EXCEL) 250 ML IV ONE (23:29)
[2021-11-08] MEDS ORDERED: ENOXAPARIN 60 MG/0.6 ML (LOVENOX) SYR SC ONE ×2 (23:30)
[2021-11-08] MEDS ORDERED: AMIODARONE INJECTION 450 MG in D5W IV SOLUTION (EXCEL) 250 ML IV SCH (23:30)
[2021-11-08] MEDS ORDERED: AMIODARONE FOR BOLUS 150 MG in NS (IVPB) 100 ML IV ONE (23:30)
[2021-11-08 23:42] LABS: BASOPHILS % (AUTO) 1 % (0-10); EOSINOPHILS # (AUTO) 0.3 10^3/uL (0.0-0.3); EOSINOPHILS % (AUTO) 4 % (0-10); HEMATOCRIT 48 % (40-54); HEMOGLOBIN 17.1 g/dL (13.3-17.7); LYMPHOCYTES # (AUTO) 2.3 10^3/uL (1.0-4.0); LYMPHOCYTES % (AUTO) 28 % (12-44); MEAN CORPUSCULAR HEMOGLOBIN 34 pg (25-34); MEAN CORPUSCULAR HGB CONC 35 g/dL (32-36); MEAN CORPUSCULAR VOLUME 97 fL (80-99); MEAN PLATELET VOLUME 10.3 fL (9.0-12.2); MONOCYTES # (AUTO) 0.7 10^3/uL (0.0-1.0); MONOCYTES % (AUTO) 8 % (0-12); NEUTROPHILS % (AUTO) 60 % (42-75); PLATELET COUNT 236 10^3/uL (130-400); WHITE BLOOD COUNT 8.4 10^3/uL (4.3-11.0)
[2021-11-08 23:48] LABS: ALBUMIN 4.1 GM/DL (3.2-4.5); CHLORIDE 99 MMOL/L (98-107); INR 0.9 (0.8-1.4); POTASSIUM 3.7 MMOL/L (3.6-5.0); PROTHROMBIN TIME PATIENT 12.6 SEC (12.2-14.7); SODIUM 137 MMOL/L (135-145)
[2021-11-08 23:49] LABS: CALCIUM 9.7 MG/DL (8.5-10.1)
[2021-11-08 23:50] LABS: GLUCOSE 120 MG/DL (70-105); TOTAL PROTEIN 8.5 GM/DL (6.4-8.2)
[2021-11-08 23:51] LABS: CARBON DIOXIDE 18 MMOL/L (21-32)
[2021-11-08 23:52] LABS: BILIRUBIN,TOTAL 0.3 MG/DL (0.1-1.0)
[2021-11-08 23:54] LABS: ALKALINE PHOSPHATASE 157 U/L (40-136); CREATININE SERUM 0.93 MG/DL (0.60-1.30); GFR ESTIMATED 99
[2021-11-08 23:55] LABS: BUN/CREATININE RATIO 16
[2021-11-08 23:57] LABS: ALANINE AMINOTRANSFERASE 30 U/L (0-55); CREATINE KINASE 133 U/L (30-200); MAGNESIUM 1.7 MG/DL (1.6-2.4)
[2021-11-09 00:04] LABS: CREATINE KINASE MB 1.8 NG/ML (<6.6)
--- NOTE | 2021-11-09 00:08 | ED Cardiac General ---
History of Present Illness General Chief Complaint: Cardiac/General Problems Stated Complaint: HEART MONITOR DOC TOLD PT TO BE SEEN Nursing Triage Note: c/o shortness of breath and "heart problem" since 1830. Admits that he has taken an extra dose of his metoprolol Source: patient History of Present Illness Date Seen by Provider: Nov 08, 2021 Time Seen by Provider: 23:20 Initial Comments PT ARRIVES VIA POV FROM HOME--DROVE HIMSELF HERE PT HAD AN EXTERNAL CARDIAC MONITORING DEVICE PLACED A COUPLE OF WEEKS AGO BY DR. HAMMOND PT WAS CALLED TONIGHT BY THE DEVICE COMPANY AND INFORMED HIM HE WAS HAVING "LETHAL ARRHYTHMIAS" AND INSTRUCTED HIM TO IMMEDIATELY GO TO ER. DR. GRIMES WAS ALSO CONTACTED PRIOR TO PT'S ARRIVAL REGARDING THIS. PT STATES AROUND 1829, HE BEGAN HAVING RAPID HEART RATE, SHORTNESS OF BREATH, SWEATS, WEAKNESS TOOK AN EXTRA DOSE OF METOPROLOL TONIGHT PT CANNOT REMEMBER IF HE TOOK HIS XARELTO TODAY OR NOT NO CHEST PAIN NO DIZZINESS OR SYNCOPE NO SWELLING IN LEGS/FEET OR PAIN IN CALVES 0T STATES 3-4 WEEKS AGO, HE HAD SUDDEN ONSET OF SEVERE HEADACHE AND LEFT SIDED NUMBNESS AND TINGLING AND WENT TO [facility] ER FOR SUSPECTED STROKE. STATES HE FOLLOWED UP WITH DR. HAMMOND, WHO DID A STRESS TEST ON 10/29/21 AND PLACED AN EXTERNAL SCENIC DESIGNER ON HIM "ABOUT 2 WEEKS AGO" HE WAS ALSO STARTED ON XARELTO AND METOPROLOL AT THAT TIME FOR SUSPECTED ATRIAL FIBRILLATION. PRIOR TO THAT, HE HAD NOT SEEN A DR IN "[place]" AND HAD NOT BEEN DX WITH ANY MEDICAL PROBLEMS OTHER THAN CHRONIC BACK PAIN AND DID NOT TAKE ANY ROUTINE MEDICATIONS PT SMOKES 2-3 PPD HE DRINKS 4-6 BEERS EVERY NIGHT HE SMOKES MARIJUANA DAILY PCP: DR. LEGGETT/[facility] Allergies and Home Medications Allergies Coded Allergies: carisoprodol (Verified Allergy, Unknown, Hives, 04/22/20) Patient Home Medication List Home Medication List Reviewed: Yes Metoprolol Succinate (Metoprolol Succinate) 50 Mg Tab.er.24h, 50 MG PO DAILY, (Reported) Entered as Reported by: Sherly Amaya on 11/09/21 0116 Last Action: Held Naproxen Sodium (Aleve) 220 Mg Tablet, 220-440 MG PO BID PRN for PAIN-MILD (1- 4), (Reported) Entered as Reported by: MARIA DOLORES LECHUGA on 11/09/21 0952 Last Action: Held Rivaroxaban (Xarelto) 20 Mg Tablet, 20 MG PO DAILY, (Reported) Entered as Reported by: Sherly Amaya on 11/09/21 0116 Last Action: Reviewed Discontinued Medications Celecoxib (Celebrex) 400 Mg Capsule, 400 MG PO DAILY, (Reported) Discontinued Reason: No Longer Taking Entered as Reported by: DARIAN MCMAHAN on 04/22/20 141 Last Action: Discontinued Gabapentin (Neurontin) 300 Mg Capsule, 300 MG PO TID, (Reported) Discontinued Reason: No Longer Taking Entered as Reported by: DARIAN MCMAHAN on 04/22/20 141 Last Action: Discontinued Review of Systems Review of Systems Constitutional: see HPI, diaphoresis EENTM: No Symptoms Reported Respiratory: See HPI, Shortness of Air Cardiovascular: Denies Chest Pain, Denies Edema; Irregular Heart Rate; Denies Lightheadedness; Palpitations; Denies Syncope Gastrointestinal: No Symptoms Reported; Denies Abdominal Pain, Denies Nausea, Denies Vomiting Genitourinary: No Symptoms Reported Musculoskeletal: no symptoms reported Skin: no symptoms reported Psychiatric/Neurological: No Symptoms Reported Endocrine: No Symptoms Reported Hematologic/Lymphatic: No Symptoms Reported Past Vuugnzn-Mdplzd-Yikmjp Hx Patient Social History Tobacco Use?: Yes Tobacco type used: Cigarettes Smoking Status: Current Everyday Smoker Substance use?: Yes Substance type: Marijuana Substance frequency: Daily Alcohol Use?: Yes Alcohol type: Beer Alcohol Frequency: Daily Immunizations Up To Date Tetanus Booster (TDap): Unknown Seasonal Allergies Seasonal Allergies: Yes Past Medical History Surgeries: Yes (hand laceration; APPY 05/2008) Appendectomy Respiratory: No Cardiac: Yes Hypertension Neurological: Yes (heat stroke 2019) Reproductive Disorders: No Genitourinary: No Gastrointestinal: No Musculoskeletal: Yes Degenerate Disk Disease, Chronic Back Pain Endocrine: No HEENT: No Cancer: No Psychosocial: Yes Anxiety Integumentary: No Blood Disorders: No Family Medical History No Pertinent Family Hx SOCIAL HISTORY: -SMOKES 2-3 PPD -DRINKS AT LEAST 4-6 BEERS DAILY -SMOKES MARIJUANA DAILY STRESS TEST 10/29/[address] HAMMOND IMPRESSION: 1. Normal heart rate and blood pressure response to regadenoson with resting hypertension. 2. There was no chest discomfort, arrhythmias, or electrocardiogram changes during the test. 3. There was normal myocardial perfusion in all segments without evidence of infarction or ischemia. 4. There was mild global hypokinesis with a calculated ejection fraction of 41%. 5. This is an abnormal result due to the low ejection fraction but with normal myocardial perfusion, represents an overall low risk for possible future coronary ischemic events. Physical Exam Vital Signs Vital Signs - First Documented 11/08/21 11/08/21 23:19 23:55 Temp 36.2 Pulse 156 Resp 20 B/P (MAP) 108/95 (99) Pulse Ox 93 O2 Delivery Room Air O2 Flow Rate 2.00 Capillary Refill : Less Than 3 Seconds Height, Weight, BMI Height: 6'1.00" Weight: 260lbs. 0oz. 117.360469ft; 30.00 BMI Method:Stated General Appearance: No Apparent Distress, WD/WN Neck: Full Range of Motion, Normal Inspection, Non Tender, Supple; No Carotid Bruit, No JVD Respiratory: Normal Breath Sounds, No Accessory Muscle Use, No Respiratory Distress Cardiovascular: No JVD, Normal Peripheral Pulses, Irregularly Irregular, Tachycardia Gastrointestinal: Non Tender, Soft Extremity: Normal Capillary Refill, Normal Inspection, Non Tender, No Calf Tenderness, No Pedal Edema Neurologic/Psychiatric: Alert, Oriented x3, No Motor/Sensory Deficits, Normal Mood/Affect, deicer element winder machine II-XII Norm as Tested Skin: Normal Color, Diaphoresis, Other (WARM) Procedures/Interventions Suture Size: 4-0 Progress/Results/Core Measures Results/Orders Lab Results Laboratory Tests Test 11/08/21 23:18 Range/Units White Blood Count 8.4 4.3-11.0 10^3/uL Red Blood Count 4.97 4.30-5.52 10^6/uL Hemoglobin 17.1 13.3-17.7 g/dL Hematocrit 48 40-54 % Mean Corpuscular Volume 97 80-99 fL Mean Corpuscular Hemoglobin 34 25-34 pg Mean Corpuscular Hemoglobin Concent 35 32-36 g/dL Red Cell Distribution Width 11.9 10.0-14.5 % Platelet Count 236 130-400 10^3/uL Mean Platelet Volume 10.3 9.0-12.2 fL Immature Granulocyte % (Auto) 0 % Neutrophils (%) (Auto) 60 42-75 % Lymphocytes (%) (Auto) 28 12-44 % Monocytes (%) (Auto) 8 0-12 % Eosinophils (%) (Auto) 4 0-10 % Basophils (%) (Auto) 1 0-10 % Neutrophils # (Auto) 5.0 1.8-7.8 10^3/uL Lymphocytes # (Auto) 2.3 1.0-4.0 10^3/uL Monocytes # (Auto) 0.7 0.0-1.0 10^3/uL Eosinophils # (Auto) 0.3 0.0-0.3 10^3/uL Basophils # (Auto) 0.0 0.0-0.1 10^3/uL Immature Granulocyte # (Auto) 0.0 0.0-0.1 10^3/uL Prothrombin Time 12.6 12.2-14.7 SEC INR Comment 0.9 0.8-1.4 Activated Partial Thromboplast Time 33 24-35 SEC Sodium Level 137 135-145 MMOL/L Potassium Level 3.7 3.6-5.0 MMOL/L Chloride Level 99 98-107 MMOL/L Carbon Dioxide Level 18 L 21-32 MMOL/L Anion Gap 20 H 5-14 MMOL/L Blood Urea Nitrogen 15 7-18 MG/DL Creatinine 0.93 0.60-1.30 MG/DL Estimat Glomerular Filtration Rate 99 BUN/Creatinine Ratio 16 Glucose Level 120 H 70-105 MG/DL Calcium Level 9.7 8.5-10.1 MG/DL Corrected Calcium 9.6 8.5-10.1 MG/DL Magnesium Level 1.7 1.6-2.4 MG/DL Total Bilirubin 0.3 0.1-1.0 MG/DL Aspartate Amino Transf (AST/SGOT) 26 5-34 U/L Alanine Aminotransferase (ALT/SGPT) 30 0-55 U/L Alkaline Phosphatase 157 H 40-136 U/L Total Creatine Kinase 133 30-200 U/L Creatine Kinase MB 1.8 <6.6 NG/ML Myoglobin 32.9 10.0-92.0 NG/ML Troponin I < 0.028 <0.028 NG/ML B-Type Natriuretic Peptide 15.6 <100.0 PG/ML Total Protein 8.5 H 6.4-8.2 GM/DL Albumin 4.1 3.2-4.5 GM/DL Serum Alcohol 10 <10 MG/DL My Orders Orders - ROOPA LI DO Amiodarone For Bolus (Cordarone Bolus) (11/08/21:) Amiodarone Injection (Cordarone Injectio (11/08/21) Amiodarone Injection (Cordarone Injectio (11/08/21:) Amiodarone For Bolus (Cordarone Bolus) (11/08/21:) Ed Iv/Invasive Line Start (11/08/21) Ekg Tracing (11/08/21) O2 (11/08/21) Monitor-Rhythm Ecg Trace Only (11/08/21) Bnp Brenna (11/08/21) Cbc With Automated Diff (11/08/21) Comprehensive Metabolic Panel (11/08/21) Creatine Kinase (11/08/21) Creatine Kinase Mb (11/08/21) Drug Screen Stat (Urine) (11/08/21) Magnesium (11/08/21) Protime With Inr (11/08/21) Partial Thromboplastin Time (11/08/21) Ua Culture If Indicated (11/08/21) Myoglobin Serum (11/08/21) Troponin I [place] (11/08/21) Chest 1 View, Ap/Pa Only (11/08/21:) D5w Iv Solution ([place]) (Dextrose 5% Ron (11/08/21 23:29) Enoxaparin Injection (Lovenox Injection) (11/08/21:) Enoxaparin Injection (Lovenox Injection) (11/08/21:) Alcohol (11/08/21:) Ekg Tracing (11/08/21:) Ed Iv/Invasive Line Start (11/09/21 00:08) Ns Iv 1000 Ml (Sodium Chloride 0.9%) (11/09/21 00:15) Aspirin Chewable Tablet (Baby Aspirin Ch (11/09/21 00:15) Medications Given in ED Vital Signs/I&O 4/10/11/08/21 11/08/21 11/08/21 23:19 23:41 23:44 23:55 Temp 36.2 Pulse 156 165 165 Resp 20 B/P (MAP) 108/95 (99) 130/80 Pulse Ox 93 96 O2 Delivery Room Air Nasal Cannula O2 Flow Rate 2.00 11/09/21 11/09/21 00:01 00:08 Temp 36.2 Pulse 156 Resp 20 B/P (MAP) 108/95 Pulse Ox 93 O2 Delivery Room Air Room Air Blood Pressure Mean: 99 Progress Progress Note : Progress Note PT IMMEDIATELY GIVEN AMIODARONE BOLUS AND PLACED ON AMIODARONE DRIP LOVENOX ALSO GIVE PT CANNOT RECALL IF HE TOOK HIS XARELTO TODAY 0033--PT HAS JUST CONVERTED TO SINUS RHYTHM, REPEAT EKG DONE NO DETERIORATION IN PT'S CONDITION DURING ER STAY Initial ECG Impression Date: Nov 08, 2021 Initial ECG Impression Time: 23:23 Initial ECG Rate: 152 Comment WIDE COMPLEX TACHYCARDIA, WITH SOME SUPRAVENTRICULAR TACHYCARDIA, WITH POSSIBLE UNDERLYING AFIB EKG : EKG Time: 23:34 Rate: 170 Rhythm: WIDE COMPLEX TACHYCARDIA Comment EKG #3 AT 0030--SINUS RHYTHM, RATE 103, RBBB, NON-SPECIFIC ST SEGMENTS Diagnostic Imaging Comments CXR--NO ACUTE PROCESS, PENDING RADIOLOGIST REVIEW Reviewed: Reviewed by Me Departure Communication (Admissions) 2325--SPOKE WITH DR. GRIMES, AGREES WITH PLAN OF CARE. ACCEPTS PT FOR ADMIT. WILL NOTIFY AND CONSULT DR. HAMMOND IN THE MORNING 0013--REPORT TO DR. GONZALEZ, E-ICU PHYSICIAN. NO ADDITIONAL RECOMMENDATIONS Impression Primary Impression: Wide-complex tachycardia Additional Impression: Supraventricular tachycardia Disposition: ADMITTED INPATIENT Condition: Improved Admissions Decision to Admit Reason: Admit from ER (General) Decision to Admit/Date: Nov 08, 2021 Time/Decision to Admit Time: 23:25 Departure-Patient Inst. Referrals: FEDE LEGGETT MD (PCP/Family) Primary Care Physician ROOPA LI DO Nov 09, 2021 00:08
[2021-11-09] MEDS ORDERED: ASPIRIN 81 MG CHEW (CHILDREN'S ASA) PO ONE (00:15)
[2021-11-09] MEDS ORDERED: NS IV 1000 ML 1,000 ML IV SCH (00:15)
[2021-11-09] MEDS ORDERED: METO50TA7 PO (01:16)
[2021-11-09] MEDS ORDERED: RIVA20TA PO (01:16)
[2021-11-09] MEDS ORDERED: AMIODARONE 450 MG/250 ML D5W EXCEL IV SCH ×2 (01:30)
[2021-11-09] MEDS ORDERED: ONDANSETRON 4 MG/2 ML (SDV) Z0FRAN IV PRN (01:30)
[2021-11-09] MEDS ORDERED: NICOTINE 2 MG GUM (NICORETTE) PO PRN (01:45)
--- NOTE | 2021-11-09 01:59 | Tele-ICU Progress Note ---
Progress Note 51M nicotine dependence (2ppd), EtOH (4-6 beers/day), HTN, tachyarrythmia admitted for arrythmia. Initially admitted to [place] 3-4 weeks ago with severe MCCARTHY, L numbness and tingling. Stroke ruled out at that time. Sent to cardiology for follow up, stress test done 10/29/21, initially treadmill but converted to pharm for failure to reach target HR. No clinical, electrical or nuclear evidence of ischemia. Noted to have EF 41%. At that time, started on metoprolol and xarelto for suspected afib at that time and sent home with an external color television console monitor. Tonight around 1830 became symptomatic with SOB, diaphoresis, chest discomfort (not pain or pressure). Called by monitoring company and told he was having "fatal arrythmias" and instructed to go to ER. Dr Connor also notified both before and after the patient's arrival. On arrival HR 180-200. Started on amiodarone immediately. - Arrythmia: on arrival to ICU, patient in sinus at 90, although does not appear to be normal sinus. More likely a wandering atrial pacemaker rhythm. Amio ongoing. Given lovenox (could not recall if taken xarelto today). - nicotine dependence: patch, prn gum - etoh: denies prior withdrawal. Monitor for signs of withdrawal syndrome. CIWA if necessary. Either way, thiamine, folate and multivitamin. Focused Exam Height, Weight, BMI Height: 6'1.00" Weight: 260lbs. 0oz. 117.128355ru; 30.63 BMI Method:Stated DAQUAN GONZALEZ MD Nov 09, 2021 01:59
[2021-11-09 04:28] LABS: BASOPHILS % (AUTO) 1 % (0-10); EOSINOPHILS # (AUTO) 0.3 10^3/uL (0.0-0.3); EOSINOPHILS % (AUTO) 6 % (0-10); HEMATOCRIT 45 % (40-54); HEMOGLOBIN 15.6 g/dL (13.3-17.7); LYMPHOCYTES # (AUTO) 1.8 10^3/uL (1.0-4.0); LYMPHOCYTES % (AUTO) 30 % (12-44); MEAN CORPUSCULAR HEMOGLOBIN 34 pg (25-34); MEAN CORPUSCULAR HGB CONC 34 g/dL (32-36); MEAN CORPUSCULAR VOLUME 99 fL (80-99); MEAN PLATELET VOLUME 10.1 fL (9.0-12.2); MONOCYTES # (AUTO) 0.6 10^3/uL (0.0-1.0); MONOCYTES % (AUTO) 11 % (0-12); NEUTROPHILS # (AUTO) 3.1 10^3/uL (1.8-7.8); NEUTROPHILS % (AUTO) 53 % (42-75); PLATELET COUNT 177 10^3/uL (130-400)
[2021-11-09 04:35] LABS: ALBUMIN 3.6 GM/DL (3.2-4.5); CHLORIDE 104 MMOL/L (98-107); POTASSIUM 4.2 MMOL/L (3.6-5.0); SODIUM 137 MMOL/L (135-145)
[2021-11-09 04:38] LABS: GLUCOSE 115 MG/DL (70-105); TOTAL PROTEIN 7.3 GM/DL (6.4-8.2)
[2021-11-09 04:39] LABS: BILIRUBIN,TOTAL 0.3 MG/DL (0.1-1.0); CARBON DIOXIDE 19 MMOL/L (21-32)
[2021-11-09 04:41] LABS: ALKALINE PHOSPHATASE 174 U/L (40-136); PHOSPHORUS 4.7 MG/DL (2.3-4.7)
[2021-11-09 04:42] LABS: CREATININE SERUM 0.84 MG/DL (0.60-1.30); GFR ESTIMATED 105
[2021-11-09 04:43] LABS: BUN/CREATININE RATIO 23
[2021-11-09 04:44] LABS: ALANINE AMINOTRANSFERASE 26 U/L (0-55); MAGNESIUM 1.8 MG/DL (1.6-2.4)
[2021-11-09] MEDS: MAGNESIUM 1 GM/100 ML IVPB 100 ML IV SCH (05:46)
[2021-11-09] MEDS: KCL 20 MEQ TAB (K-DUR) PO SCH (05:46)
[2021-11-09] MEDS: POTASSIUM CL 10MEQ/50ML IVPB 50 ML IV SCH (05:46)
[2021-11-09] MEDS: MULTIVIT W/MINERALS TAB (THERAGRAN M) PO SCH (05:47)
--- NOTE | 2021-11-09 07:03 | Diagnostic Imaging Report ---
EXAMINATION: Chest 1 view HISTORY: Tachycardia. COMPARISON: 10/30/2020. FINDINGS: The lung volumes are normal. No focal consolidation is seen. No large pleural effusion or pneumothorax is seen. The cardiomediastinal silhouette is normal in size and contour. A battery pack is seen overlying the left hilar region. No acute osseous abnormality is seen. IMPRESSION: 1. No acute pleuroparenchymal process. Dictated by: Dictated on workstation # [id number]
[2021-11-09] MEDS: ASPIRIN E.C. 81 MG (ECOTRIN) TAB PO SCH (08:17)
[2021-11-09] MEDS: THIAMINE INJECTION 100 MG, FOLIC ACID INJECTION 1 MG in NS (IVPB) 50 ML IV SCH (08:17)
--- NOTE | 2021-11-09 08:43 | Consultation-Cardiology ---
HPI-Cardiology Cardiology Consultation: Date of Consultation 11/09/21 Date of Admission 11/08/21 Attending Physician Anabella Connor MD Admitting Physician Fede Toro MD Consulting Physician FEDE HAMMOND JR, MD HPI: Time Seen by a Provider: 08:43 Chief Complaint: Reason for consultation: Atrial flutter. I had the pleasure of seeing Solo in the intensive care unit at [facility] in [place], [place] this morning. He is known to me from the outpatient office. He has a history of newly diagnosed cardiomyopathy as well as supraventricular tachycardia, atrial flutter and atrial fibrillation. I was in the process of evaluating the patient to determine the next course of therapy. As part of that, I had him wearing a 30-day event recorder. Yesterday he was moving some heavy pallets and became short of breath. He thought he was short of breath because of his exertion. However, after he stopped exerting, his shortness of breath persisted. From time to time he would feel like his heart was beating fast. He denied chest discomfort, lightheadedness or syncope. Then late last evening he realized his cell phone was not getting service. He removed the battery from his cell phone and reinserted this and then discovered that he had multiple missed calls, 1 of which was from the event monitor [employer]. Yesterday around 19:47 he developed supraventricular tachycardia at a heart rate of 261 bpm and the monitoring company was trying to reach him to see if he was okay. Ultimately, the housekeeping room inspector was able to reach the patient and had him go to the emergency room for further evaluation. In the emergency room he was found to have a wide-complex tachycardia and was started on intravenous amiodarone and admitted to the intensive care unit. Overnight, he converted to sinus rhythm. His dyspnea resolved. He denies any further palpitations. He denies paroxysmal nocturnal dyspnea, orthopnea, or ankle edema. Because of the tachycardia, a cardiology consultation was requested. Certain portions of this document may have been dictated utilizing voice recognition technology. Inherent to this technology, typographical and grammatical errors may exist. As much as I am diligent to identify and correct these mistakes, some errors may remain in the document. Review of Systems-Cardiology Review of Systems Other comments Review of 10 organ systems is as per the history of present illness, otherwise negative. EQZ-Oqzczy-Mqtifd Hx Patient Social History Smoking Status: Current Everyday Smoker 2nd Hand Smoke Exposure: Yes Have you traveled recently?: No Alcohol Use?: Yes Substance type: Marijuana Pt feels they are or have been: No Tobacco type used: Cigarettes Immunizations Up To Date Tetanus Booster (TDap): Unknown Past Medical History PMH As described under Assessment. Family Medical History Family Medical History: Both of his parents had strokes in their 50s. Allergies and Home Medications Allergies Coded Allergies: carisoprodol (Verified Allergy, Unknown, Hives, 04/22/20) Patient Home Medication List Home Medication List Reviewed: Yes Metoprolol Succinate (Metoprolol Succinate) 50 Mg Tab.er.24h, 50 MG PO DAILY, (Reported) Entered as Reported by: Sherly Amaya on 11/09/21115 Last Action: New Order Rivaroxaban (Xarelto) 20 Mg Tablet, 20 MG PO DAILY, (Reported) Entered as Reported by: Sherly Amaya on 11/09/21115 Last Action: New Order Discontinued Medications Celecoxib (Celebrex) 400 Mg Capsule, 400 MG PO DAILY, (Reported) Discontinued Reason: No Longer Taking Entered as Reported by: DARIAN MCMAHAN on 04/22/201414 Last Action: Discontinued Gabapentin (Neurontin) 300 Mg Capsule, 300 MG PO TID, (Reported) Discontinued Reason: No Longer Taking Entered as Reported by: DARIAN MCMAHAN on 04/22/201414 Last Action: Discontinued Exam Vital Signs Vital Signs Date Time Temp Pulse Resp B/P (MAP) Pulse Ox O2 Delivery O2 Flow Rate FiO2 11/09/21 07:59 36.2 11/09/21 06:00 79 17 103/72 93 11/09/21 04:00 Nasal Cannula 3.00 Physical Exam General: Alert. No acute distress. Well nourished and appears stated age. Eye: Extraocular movements are intact. Conjunctivae are clear. There are no x anthelasma. HENT: Normocephalic. Atraumatic. Carotid pulsations 2/2 without bruits. Neck: Jugular venous pressure does not appear elevated. No thyromegaly appreciated. Respiratory: Lungs have scattered inspiratory wheezes. Respirations are non- labored. Breath sounds are equal. Symmetrical chest wall expansion. Cardiovascular: Normal rate. Regular rhythm. No murmur. No gallop. Point of maximal impulse is not appear displaced. Good pulses equal in all extremities. No edema. Gastrointestinal: Soft. Normal bowel sounds. Skin: Skin turgor is normal. There is no pallor. Musculoskeletal: No kyphosis or scoliosis appreciated. Neurologic: Alert and oriented to person, place, time. Cranial nerves 3-12 appear grossly intact. The patient has good motor tone strength in the upper and lower extremities bilaterally. Psychiatric: Cooperative. Appropriate mood & affect. Labs Laboratory Tests Test 11/08/21 23:18 11/09/21 04:17 Range/Units White Blood Count 8.4 6.0 4.3-11.0 10^3/uL Red Blood Count 4.97 4.60 4.30-5.52 10^6/uL Hemoglobin 17.1 15.6 13.3-17.7 g/dL Hematocrit 48 45 40-54 % Mean Corpuscular Volume 97 99 80-99 fL Mean Corpuscular Hemoglobin 34 34 25-34 pg Mean Corpuscular Hemoglobin Concent 35 34 32-36 g/dL Red Cell Distribution Width 11.9 11.9 10.0-14.5 % Platelet Count 236 177 130-400 10^3/uL Mean Platelet Volume 10.3 10.1 9.0-12.2 fL Immature Granulocyte % (Auto) 0 0 % Neutrophils (%) (Auto) 60 53 42-75 % Lymphocytes (%) (Auto) 28 30 12-44 % Monocytes (%) (Auto) 8 11 0-12 % Eosinophils (%) (Auto) 4 6 0-10 % Basophils (%) (Auto) 1 1 0-10 % Neutrophils # (Auto) 5.0 3.1 1.8-7.8 10^3/uL Lymphocytes # (Auto) 2.3 1.8 1.0-4.0 10^3/uL Monocytes # (Auto) 0.7 0.6 0.0-1.0 10^3/uL Eosinophils # (Auto) 0.3 0.3 0.0-0.3 10^3/uL Basophils # (Auto) 0.0 0.0 0.0-0.1 10^3/uL Immature Granulocyte # (Auto) 0.0 0.0 0.0-0.1 10^3/uL Prothrombin Time 12.6 12.2-14.7 SEC INR Comment 0.9 0.8-1.4 Activated Partial Thromboplast Time 33 24-35 SEC Sodium Level 137 137 135-145 MMOL/L Potassium Level 3.7 4.2 3.6-5.0 MMOL/L Chloride Level 99 104 98-107 MMOL/L Carbon Dioxide Level 18 L 19 L 21-32 MMOL/L Anion Gap 20 H 14 5-14 MMOL/L Blood Urea Nitrogen 15 19 H 7-18 MG/DL Creatinine 0.93 0.84 0.60-1.30 MG/DL Estimat Glomerular Filtration Rate 99 105 BUN/Creatinine Ratio 16 23 Glucose Level 120 H 115 H 70-105 MG/DL Calcium Level 9.7 9.0 8.5-10.1 MG/DL Corrected Calcium 9.6 9.3 8.5-10.1 MG/DL Magnesium Level 1.7 1.8 1.6-2.4 MG/DL Total Bilirubin 0.3 0.3 0.1-1.0 MG/DL Aspartate Amino Transf (AST/SGOT) 26 22 5-34 U/L Alanine Aminotransferase (ALT/SGPT) 30 26 0-55 U/L Alkaline Phosphatase 157 H 174 H 40-136 U/L Total Creatine Kinase 133 30-200 U/L Creatine Kinase MB 1.8 <6.6 NG/ML Myoglobin 32.9 10.0-92.0 NG/ML Troponin I < 0.028 < 0.028 <0.028 NG/ML B-Type Natriuretic Peptide 15.6 <100.0 PG/ML Total Protein 8.5 H 7.3 6.4-8.2 GM/DL Albumin 4.1 3.6 3.2-4.5 GM/DL Serum Alcohol 10 <10 MG/DL Phosphorus Level 4.7 2.3-4.7 MG/DL Radiology REGADENOSON NUCLEAR STRESS TEST (10/29/2021): 1. Normal heart rate and blood pressure response to regadenoson with resting hypertension. 2. There was no chest discomfort, arrhythmias, or electrocardiogram changes during the test. 3. There was normal myocardial perfusion in all segments without evidence of infarction or ischemia. 4. There was mild global hypokinesis with a calculated ejection fraction of 41%. 5. This is an abnormal result due to the low ejection fraction but with normal myocardial perfusion, represents an overall low risk for possible future coronary ischemic events. ECHOCARDIOGRAM (10/19/2021): 1. This is a technically difficult study due to poor image quality secondary to the patient's body habitus. 2. There is normal left ventricular chamber size with mild concentric left ventricular hypertrophy. There is moderate left ventricular systolic dysfunction with an estimated ejection fraction of 30-35% with global hypokinesis. 3. The left ventricular diastolic parameters are normal. 4. There is mild aortic valve sclerosis. 5. The pulmonary artery pressure cannot be estimated on this study due to inadequate tricuspid regurgitant envelope. LABS (10/19/2020): Hemoglobin 17.1. MCV 98 (high). Platelets 220,000. Sodium 137. Potassium 4.3. Glucose 105. BUN 14. Creatinine 0.75. GFR 109. Alkaline phosphatase 147 (high). AST 34. ALT 48 (high). Total bilirubin 0.3. Total CK 222. Troponin undetectable. TSH 3.03. Magnesium 1.7. ELECTROCARDIOGRAM (10/19/2021 08:17): Ectopic atrial tachycardia with frequent premature ectopic atrial beats at a heart rate of 107 bpm with borderline left axis deviation at -20 degrees. ELECTROCARDIOGRAM (10/19/2021 07:41): Sinus rhythm with premature junctional complex. ELECTROCARDIOGRAM (10/19/2021 07:35): Supraventricular tachycardia, possible atypical atrial flutter or ectopic atrial tachycardia with a ventricular rate of 150 bpm with nonspecific intraventricular conduction delay. ECG Impression ECG Comment His initial electrocardiogram shows atrial flutter with 2-1 AV block. His electrocardiogram when he was in sinus rhythm shows a sinus rhythm with possible old anteroseptal myocardial infarction. Diagnosis/Problems Diagnosis/Problems (1) Typical atrial flutter Assessment & Plan: He appears to be having typical atrial flutter with a rapid ventricular rate. I spoke to Dr. Momin an aix administrator at [facility] who recommends starting the patient on sotalol. The intravenous amiodarone will be discontinued. He will be restarted on Xarelto for stroke prophylaxis. I will plan on a cardiac catheterization later in the week and ultimately, he will need to be transferred to [facility] for electrophysiology study and probable atrial flutter ablation. In most cases, this can be done as an outpatient. However, due to the patient's rapid ventricular rate, if he develops recurrent atrial flutter with this fast ventricular rate, this could degenerate into ventricular fibrillation. As such, I feel it is important that he have this ablated before discharge. (2) Supraventricular tachycardia Status: Acute Assessment & Plan: Unclear whether or not he has also been having supraventricular tachycardia. This can be evaluated at the time of his electrophysiology study later in the week. (3) Cardiomyopathy Assessment & Plan: He appears to have nonischemic cardiomyopathy based upon the findings on his nuclear stress test. However, in light of the extreme tachycardia, I will plan to have him undergo a cardiac catheterization to definitively exclude coronary artery disease. I will start him on low-dose VONDA inhibitor. I had him on metoprolol succinate but since I am starting him on sotalol for the atrial arrhythmias, I will hold off on restarting metoprolol at this time. (4) Primary hypertension Assessment & Plan: As above, I will start him on lisinopril due to the cardiomyopathy. We will need to watch his blood pressures closely. (5) Cigarette smoker Assessment & Plan: He needs to quit smoking. He was counseled in this regard. FEDE HAMMOND JR, MD Nov 09, 2021 08:43
--- NOTE | 2021-11-09 09:19 | History & Physical ---
HPI History of Present Illness: About a month ago had an episode of feeling very poorly and left arm pain, then left leg numbness, ended up having stress test that he believes was okay and then had a heart monitor placed. Yesterday he was unloading a bunch of pallets and things and couldn't catch his breath, denies chest pain or dizziness. He was called by the monitor company and told he needed to get to the ER. Source: patient Date seen by provider: Nov 09, 2021 Time Seen by Provider: 09:15 Attending Physician Anabella Connor MD PCP Guanakito Toro MD Consult Date of Admission Nov 09, 2021 at 00:15 Home Medications Home Medications Reviewed patient Home Medication Reconciliation performed by pharmacy medication reconciliations seal delivery vehicle team technician and/or nursing. Patients Allergies have been reviewed. Allergies Coded Allergies: carisoprodol (Verified Allergy, Unknown, Hives, 04/22/20) MIJ-Uhyrfe-Vjeuvt Hx Patient Social History Drug of Choice: POT Smoking Status: Current Everyday Smoker 2nd Hand Smoke Exposure: Yes Recent Hopitalizations: No Alcohol Use?: Yes ("couple of drinks" per day) Substance type: Marijuana Tobacco type used: Cigarettes Have you traveled recently?: No Immunizations Up To Date Tetanus Booster (TDap): Unknown Influenza Vaccine Up-to-Date: No; Not Current First/Initial COVID19 Vaccinat: none Past Medical History PMHx: HTN SurgHx: Appendectomy Family Medical History Significant Family History: Cerebral Aneurysm (mother at 51), CVA (father age 53) Review of Systems ([facility]) Constitutional: No fever EENTM: No nose congestion, No throat pain Respiratory: cough (reports chronic smoker's cough) Cardiovascular: see HPI; No chest pain Gastrointestinal: No abdominal pain, No constipation, No diarrhea, No nausea, No vomiting Genitourinary: No dysuria Musculoskeletal: joint pain (chronic) Skin: No rash Psychiatric/Neurological: Anxiety; Denies Depressed Reviewed Test Results Reviewed Test Results Lab Laboratory Tests Test 11/08/21 23:18 11/09/21 04:17 Range/Units White Blood Count 8.4 6.0 4.3-11.0 10^3/uL Red Blood Count 4.97 4.60 4.30-5.52 10^6/uL Hemoglobin 17.1 15.6 13.3-17.7 g/dL Hematocrit 48 45 40-54 % Mean Corpuscular Volume 97 99 80-99 fL Mean Corpuscular Hemoglobin 34 34 25-34 pg Mean Corpuscular Hemoglobin Concent 35 34 32-36 g/dL Red Cell Distribution Width 11.9 11.9 10.0-14.5 % Platelet Count 236 177 130-400 10^3/uL Mean Platelet Volume 10.3 10.1 9.0-12.2 fL Immature Granulocyte % (Auto) 0 0 % Neutrophils (%) (Auto) 60 53 42-75 % Lymphocytes (%) (Auto) 28 30 12-44 % Monocytes (%) (Auto) 8 11 0-12 % Eosinophils (%) (Auto) 4 6 0-10 % Basophils (%) (Auto) 1 1 0-10 % Neutrophils # (Auto) 5.0 3.1 1.8-7.8 10^3/uL Lymphocytes # (Auto) 2.3 1.8 1.0-4.0 10^3/uL Monocytes # (Auto) 0.7 0.6 0.0-1.0 10^3/uL Eosinophils # (Auto) 0.3 0.3 0.0-0.3 10^3/uL Basophils # (Auto) 0.0 0.0 0.0-0.1 10^3/uL Immature Granulocyte # (Auto) 0.0 0.0 0.0-0.1 10^3/uL Prothrombin Time 12.6 12.2-14.7 SEC INR Comment 0.9 0.8-1.4 Activated Partial Thromboplast Time 33 24-35 SEC Sodium Level 137 137 135-145 MMOL/L Potassium Level 3.7 4.2 3.6-5.0 MMOL/L Chloride Level 99 104 98-107 MMOL/L Carbon Dioxide Level 18 L 19 L 21-32 MMOL/L Anion Gap 20 H 14 5-14 MMOL/L Blood Urea Nitrogen 15 19 H 7-18 MG/DL Creatinine 0.93 0.84 0.60-1.30 MG/DL Estimat Glomerular Filtration Rate 99 105 BUN/Creatinine Ratio 16 23 Glucose Level 120 H 115 H 70-105 MG/DL Calcium Level 9.7 9.0 8.5-10.1 MG/DL Corrected Calcium 9.6 9.3 8.5-10.1 MG/DL Magnesium Level 1.7 1.8 1.6-2.4 MG/DL Total Bilirubin 0.3 0.3 0.1-1.0 MG/DL Aspartate Amino Transf (AST/SGOT) 26 22 5-34 U/L Alanine Aminotransferase (ALT/SGPT) 30 26 0-55 U/L Alkaline Phosphatase 157 H 174 H 40-136 U/L Total Creatine Kinase 133 30-200 U/L Creatine Kinase MB 1.8 <6.6 NG/ML Myoglobin 32.9 10.0-92.0 NG/ML Troponin I < 0.028 < 0.028 <0.028 NG/ML B-Type Natriuretic Peptide 15.6 <100.0 PG/ML Total Protein 8.5 H 7.3 6.4-8.2 GM/DL Albumin 4.1 3.6 3.2-4.5 GM/DL Serum Alcohol 10 <10 MG/DL Phosphorus Level 4.7 2.3-4.7 MG/DL Radiology 11/08 CXR: IMPRESSION: 1. No acute pleuroparenchymal process. Physical Exam-([facility]) Physical Exam Vital Signs VS - Last 72 Hours, by Label 11/08/21 11/08/21 11/08/21 11/08/21 23:19 23:41 23:44 23:55 Temp 36.2 Pulse 156 165 165 Resp 20 B/P (MAP) 108/95 (99) 130/80 Pulse Ox 93 96 O2 Delivery Room Air Nasal Cannula O2 Flow Rate 2.00 11/09/21 11/09/21 11/09/21 11/09/21 00:01 00:08 01:00 01:00 Temp 36.2 36.3 Pulse 156 98 Resp 20 16 B/P (MAP) 108/95 105/73 Pulse Ox 93 99 96 O2 Delivery Room Air Room Air Nasal Cannula Nasal Cannula O2 Flow Rate 3.00 11/09/21 11/09/21 11/09/21 11/09/21 01:00 01:05 02:00 03:00 Pulse 102 97 101 92 Resp 12 16 17 B/P (MAP) 132/90 114/73 115/85 Pulse Ox 96 94 97 11/09/21 11/09/21 11/09/21 11/09/21 04:00 04:00 05:00 06:00 Pulse 85 76 79 Resp 6 18 17 B/P (MAP) 113/87 122/99 103/72 Pulse Ox 93 91 95 93 O2 Delivery Nasal Cannula O2 Flow Rate 3.00 11/09/21 11/09/21 11/09/21 11/09/21 07:00 07:00 07:15 07:30 Pulse 68 68 72 74 Resp 7 15 7 B/P (MAP) 139/112 144/101 142/99 Pulse Ox 96 94 96 11/09/21 11/09/21 11/09/21 11/09/21 07:45 07:59 08:00 08:15 Temp 36.2 Pulse 75 70 73 Resp 21 11 12 B/P (MAP) 140/102 134/105 131/102 Pulse Ox 96 95 94 11/09/21 11/09/21 11/09/21 11/09/21 08:30 08:45 09:00 09:15 Pulse 78 70 84 73 Resp 11 7 19 14 B/P (MAP) 143/105 132/68 148/111 129/102 Pulse Ox 96 96 96 96 11/09/21 11/09/21 11/09/21 11/09/21 09:30 09:45 10:00 10:15 Pulse 69 70 81 75 Resp 8 6 24 17 B/P (MAP) 140/95 137/99 154/134 147/97 Pulse Ox 94 94 96 93 Capillary Refill : Less Than 3 Seconds General Appearance: no apparent distress Respiratory: wheezing (left expiratory) Cardiovascular: regular rate, rhythm Gastrointestinal: normal bowel sounds, non tender, soft Extremities: no pedal edema Neurologic/Psychiatric: bonderizer II-XII nml as tested, alert, normal mood/affect, oriented x 3; No abnormal cerebellar tests, No motor weakness Skin: normal color, warm/dry Assessment/Plan Assessment/Plan Admission Status: Inpatient Order (span 2 midnights) Reason for Inpatient Admission: Life threatening arrythmia requiring continuous drip and cardiac evaluation (1) Primary hypertension Status: Chronic Assessment & Plan: Starting lisinopril per Cardiology (2) Typical atrial flutter Assessment & Plan: with severe RVR and concern for chance of degeneration into fatal arrhythmia, appreciate Cardiology recommendations. Stopped amiodarone drip and started sotalol, plan to send for ablation after initial work-up. (3) Wide-complex tachycardia Status: Resolved Assessment & Plan: Noted in ER, resolved with amiodarone. (4) Supraventricular tachycardia Status: Acute (5) Cardiomyopathy Assessment & Plan: Stress test 10/29/21 with no evidence of ischemia, mild global hypokinesis with EF 41%, initially nonischemic suspected, but due to severe arrhythmias, plan for cath per Dr. Jauregui Qualifiers: Qualified Codes: I42.9 - Cardiomyopathy, unspecified (6) DVT prophylaxis Status: Acute Assessment & Plan: Rivaroxaban HIRO SEGURA MD Nov 09, 2021 09:19
[2021-11-09] MEDS ORDERED: NAPR220T66 PO (09:52)
[2021-11-09] MEDS ORDERED: lisINopril 5 MG (PRINIVIL) TABLET PO NR (10:15)
[2021-11-09] MEDS: NICOTINE 21 MG (NICODERM) PATCH TD SCH (10:53)
[2021-11-09 11:14] LABS: BILIRUBIN,URINE NEGATIVE (NEGATIVE); CLARITY,URINE CLEAR; COLOR,URINE YELLOW; GLUCOSE, URINE (UA) NEGATIVE (NEGATIVE); KETONES,URINE NEGATIVE (NEGATIVE); LEUKOCYTE ESTERASE ,URINE NEGATIVE (NEGATIVE); NITRITE,URINE NEGATIVE (NEGATIVE); PROTEIN,URINE NEGATIVE (NEGATIVE)
[2021-11-09 11:35] LABS: BACTERIA,URINE NEGATIVE /HPF; RBC,URINE RARE /HPF; SQUAMOUS EPITHELIAL CELL,UR RARE /HPF
[2021-11-09] MEDS: RIVAROXABAN 20 MG TABLET (XARELTO) PO SCH (17:20)
[2021-11-09] MEDS: SOTALOL 80 MG (BETAPACE) TAB PO SCH (20:22)
[2021-11-10 04:46] LABS: BASOPHILS % (AUTO) 1 % (0-10); EOSINOPHILS # (AUTO) 0.3 10^3/uL (0.0-0.3); EOSINOPHILS % (AUTO) 7 % (0-10); HEMATOCRIT 45 % (40-54); HEMOGLOBIN 15.4 g/dL (13.3-17.7); LYMPHOCYTES # (AUTO) 1.3 10^3/uL (1.0-4.0); LYMPHOCYTES % (AUTO) 28 % (12-44); MEAN CORPUSCULAR HEMOGLOBIN 34 pg (25-34); MEAN CORPUSCULAR HGB CONC 34 g/dL (32-36); MEAN CORPUSCULAR VOLUME 99 fL (80-99); MEAN PLATELET VOLUME 10.1 fL (9.0-12.2); MONOCYTES # (AUTO) 0.6 10^3/uL (0.0-1.0); MONOCYTES % (AUTO) 12 % (0-12); NEUTROPHILS # (AUTO) 2.4 10^3/uL (1.8-7.8); NEUTROPHILS % (AUTO) 52 % (42-75); PLATELET COUNT 165 10^3/uL (130-400); WHITE BLOOD COUNT 4.6 10^3/uL (4.3-11.0)
[2021-11-10 04:57] LABS: ALBUMIN 3.7 GM/DL (3.2-4.5); POTASSIUM 4.2 MMOL/L (3.6-5.0)
[2021-11-10 04:58] LABS: CALCIUM 9.2 MG/DL (8.5-10.1)
[2021-11-10 04:59] LABS: TOTAL PROTEIN 7.1 GM/DL (6.4-8.2)
[2021-11-10 05:01] LABS: BILIRUBIN,TOTAL 0.8 MG/DL (0.1-1.0)
[2021-11-10 05:03] LABS: CREATININE SERUM 0.73 MG/DL (0.60-1.30); PHOSPHORUS 3.4 MG/DL (2.3-4.7)
[2021-11-10 05:06] LABS: MAGNESIUM 1.7 MG/DL (1.6-2.4)
[2021-11-10] MEDS: KCL 20 MEQ TAB (K-DUR) PO SCH (05:40)
[2021-11-10] MEDS: POTASSIUM CL 10MEQ/50ML IVPB 50 ML IV SCH (05:40)
[2021-11-10] MEDS: MAGNESIUM 1 GM/100 ML IVPB 100 ML IV SCH ×3 (05:40→07:50)
[2021-11-10] MEDS: MULTIVIT W/MINERALS TAB (THERAGRAN M) PO SCH (06:32)
[2021-11-10] MEDS ORDERED: NS IV 1000 ML 1,000 ML IV ONE (08:30)
[2021-11-10] MEDS ORDERED: CATHETER FLUSH 10 ML SYR IV PRN (08:30)
--- NOTE | 2021-11-10 08:30 | Cardiology Progress Note ---
Progress Note-Cardiology Events since last exam Date Seen by Provider: Nov 10, 2021 Time Seen by Provider: 08:29 Events since last exam I am following him due to atrial flutter and possible ventricular tachycardia. He remains in sinus rhythm on sotalol. He denies chest discomfort, dyspnea at rest, palpitations, syncope, or ankle edema. Certain portions of this document may have been dictated utilizing voice recognition technology. Inherent to this technology, typographical and grammatical errors may exist. As much as I am diligent to identify and correct these mistakes, some errors may remain in the document. Vitals Last set of Vitals Signs Vital Signs 11/10/21 06:00 Pulse 52 Resp 18 B/P (MAP) 132/98 Pulse Ox 94 O2 Delivery Nasal Cannula O2 Flow Rate 2.00 Labs Labs Laboratory Tests 11/10/21 04:25 Exam Vital Signs Vital Signs Date Time Temp Pulse Resp B/P (MAP) Pulse Ox O2 Delivery O2 Flow Rate FiO2 11/10/21 06:00 52 18 132/98 94 Nasal Cannula 2.00 11/10/21 00:00 36.5 Physical Exam General: Alert. No acute distress. Eye: No xanthelasma. HENT: Normocephalic. Neck: Jugular venous pressure does not appear elevated. Respiratory: Lungs are clear to auscultation. Respirations are non-labored. Breath sounds are equal. Symmetrical chest wall expansion. Cardiovascular: Normal rate. Regular rhythm. No murmur. No gallop. No edema. Gastrointestinal: Soft. Normal bowel sounds. Skin: Warm. Dry. Neurologic: Alert and oriented to person, place, time. Cranial nerves 3-11 grossly intact. Psychiatric: Cooperative. Appropriate mood & affect. Labs Laboratory Tests Test 11/09/21 10:00 11/10/21 04:25 Range/Units Urine Color YELLOW Urine Clarity CLEAR Urine pH 6.0 5-9 Urine Specific [place] 1.025 H 1.016-1.022 Urine Protein NEGATIVE NEGATIVE Urine Glucose (UA) NEGATIVE NEGATIVE Urine Ketones NEGATIVE NEGATIVE Urine Nitrite NEGATIVE NEGATIVE Urine Bilirubin NEGATIVE NEGATIVE Urine Urobilinogen 0.2 < = 1.0 MG/DL Urine Leukocyte Esterase NEGATIVE NEGATIVE Urine RBC (Auto) TRACE-I H NEGATIVE Urine RBC RARE /HPF Urine WBC NONE /HPF Urine Squamous Epithelial Cells RARE /HPF Urine Crystals NONE /LPF Urine Bacteria NEGATIVE /HPF Urine Casts NONE /LPF Urine Mucus NEGATIVE /LPF Urine Culture Indicated NO White Blood Count 4.6 4.3-11.0 10^3/uL Red Blood Count 4.55 4.30-5.52 10^6/uL Hemoglobin 15.4 13.3-17.7 g/dL Hematocrit 45 40-54 % Mean Corpuscular Volume 99 80-99 fL Mean Corpuscular Hemoglobin 34 25-34 pg Mean Corpuscular Hemoglobin Concent 34 32-36 g/dL Red Cell Distribution Width 11.9 10.0-14.5 % Platelet Count 165 130-400 10^3/uL Mean Platelet Volume 10.1 9.0-12.2 fL Immature Granulocyte % (Auto) 0 % Neutrophils (%) (Auto) 52 42-75 % Lymphocytes (%) (Auto) 28 12-44 % Monocytes (%) (Auto) 12 0-12 % Eosinophils (%) (Auto) 7 0-10 % Basophils (%) (Auto) 1 0-10 % Neutrophils # (Auto) 2.4 1.8-7.8 10^3/uL Lymphocytes # (Auto) 1.3 1.0-4.0 10^3/uL Monocytes # (Auto) 0.6 0.0-1.0 10^3/uL Eosinophils # (Auto) 0.3 0.0-0.3 10^3/uL Basophils # (Auto) 0.0 0.0-0.1 10^3/uL Immature Granulocyte # (Auto) 0.0 0.0-0.1 10^3/uL Sodium Level 135 135-145 MMOL/L Potassium Level 4.2 3.6-5.0 MMOL/L Chloride Level 102 98-107 MMOL/L Carbon Dioxide Level 20 L 21-32 MMOL/L Anion Gap 13 5-14 MMOL/L Blood Urea Nitrogen 12 7-18 MG/DL Creatinine 0.73 0.60-1.30 MG/DL Estimat Glomerular Filtration Rate 109 BUN/Creatinine Ratio 16 Glucose Level 108 H 70-105 MG/DL Calcium Level 9.2 8.5-10.1 MG/DL Corrected Calcium 9.4 8.5-10.1 MG/DL Phosphorus Level 3.4 2.3-4.7 MG/DL Magnesium Level 1.7 1.6-2.4 MG/DL Total Bilirubin 0.8 0.1-1.0 MG/DL Aspartate Amino Transf (AST/SGOT) 22 5-34 U/L Alanine Aminotransferase (ALT/SGPT) 27 0-55 U/L Alkaline Phosphatase 113 40-136 U/L Total Protein 7.1 6.4-8.2 GM/DL Albumin 3.7 3.2-4.5 GM/DL Diagnosis/Problems Diagnosis/Problems (1) Typical atrial flutter Assessment & Plan: He appears to be having typical atrial flutter with a rapid ventricular rate. I spoke to Dr. Momin an events solutions consultant at [facility] who recommends starting the patient on sotalol. He received 1 dose last evening. He was restarted on Xarelto for stroke prophylaxis. I will plan on a cardiac catheterization later in the week and ultimately, he will need to be transferred to [facility] for electrophysiology study and p robable atrial flutter ablation. In most cases, this can be done as an outpatient. However, due to the patient's rapid ventricular rate, if he develops recurrent atrial flutter with this fast ventricular rate, this could degenerate into ventricular fibrillation. As such, I feel it is important that he have this ablated before discharge. I will plan to transfer him to a [facility] hopefully on Tuesday and he is on their schedule for ablation on . From a cardiac standpoint, he can be transferred over to cardiac stepdown unit with telemetry. (2) Supraventricular tachycardia Status: Acute Assessment & Plan: Unclear whether or not he has also been having supraventricular tachycardia. This can be evaluated at the time of his electrophysiology study later in the week. (3) Cardiomyopathy Assessment & Plan: He appears to have nonischemic cardiomyopathy based upon the findings on his nuclear stress test. However, in light of the extreme tachycardia, I will plan to have him undergo a cardiac catheterization to definitively exclude coronary artery disease. I I have started him on low-dose VONDA inhibitor. I had him on metoprolol succinate at home but since I started him on sotalol for the atrial arrhythmias, I will hold off on restarting metoprolol at this time. I am concerned the combination of metoprolol and sotalol could cause bradycardia. (4) Primary hypertension Status: Chronic Assessment & Plan: As above, I started him on lisinopril due to the cardiomyopathy. We will need to watch his blood pressures closely. (5) Cigarette smoker Assessment & Plan: He needs to quit smoking. He was counseled in this regard. Problem Qualifiers (1) Cardiomyopathy: Cardiomyopathy type: unspecified Qualified Codes: I42.9 - Cardiomyopathy, unspecified FEDE HAMMOND JR, MD Nov 10, 2021 08:30
[2021-11-10] MEDS: PATCH REMOVAL TP SCH (08:40)
[2021-11-10] MEDS: NICOTINE 21 MG (NICODERM) PATCH TD SCH (08:42)
[2021-11-10] MEDS: ASPIRIN E.C. 81 MG (ECOTRIN) TAB PO SCH (08:43)
[2021-11-10] MEDS: THIAMINE INJECTION 100 MG, FOLIC ACID INJECTION 1 MG in NS (IVPB) 50 ML IV SCH (08:43)
[2021-11-10] MEDS: lisINopril 5 MG (PRINIVIL) TABLET PO SCH (08:43)
[2021-11-10] MEDS ORDERED: LIDOCAINE 1% INJ 50 ML (XYLOCAINE) VIAL ONE (08:45)
[2021-11-10] MEDS ORDERED: HEParin (CATH LAB) 2,000 ML IV ONE (08:45)
[2021-11-10] MEDS: SOTALOL 80 MG (BETAPACE) TAB PO SCH ×2 (08:47→20:30)
--- NOTE | 2021-11-10 08:57 | Progress Note ---
Subjective Subjective/Events-last exam States he feels pretty well, has some mild lower chest discomfort right now that started after his medications, otherwise denies palpitations, chest pain or shortness of breath. Objective Exam Last Set of Vital Signs Vital Signs Date Time Temp Pulse Resp B/P (MAP) Pulse Ox O2 Delivery O2 Flow Rate FiO2 11/10/21 08:47 61 11/10/21 08:41 Nasal Cannula 2.00 11/10/21 08:00 36.3 11/10/21 08:00 7 115/74 93 Capillary Refill : Less Than 3 Seconds I&O Intake and Output 11/10/21 00:00 Intake Total 1521.2 ml Output Total 1675 ml Balance -153.8 ml Intake Oral 1470 ml IV Total 51.2 ml Output Urine Total 1675 ml Daily Weight Change No General: Alert, No Acute Distress Lungs: Clear to Auscultation, Normal Air Movement Heart: Other (bradycardic) Abdomen: Normal Bowel Sounds, Soft Neuro: Normal Speech Psych/Mental Status: Mood NL Results/Procedures Lab Laboratory Tests 11/09/21 10:00: Urine Color YELLOW, Urine Clarity CLEAR, Urine pH 6.0, Urine Specific [place] 1.025H, Urine Protein NEGATIVE, Urine Glucose (UA) NEGATIVE, Urine Ketones NEGATIVE, Urine Nitrite NEGATIVE, Urine Bilirubin NEGATIVE, Urine Urobilinogen 0.2, Urine Leukocyte Esterase NEGATIVE, Urine RBC (Auto) TRACE-IH, Urine RBC RARE, Urine WBC NONE, Urine Squamous Epithelial Cells RARE, Urine Crystals NONE, Urine Bacteria NEGATIVE, Urine Casts NONE, Urine Mucus NEGATIVE, Urine Culture Indicated NO 11/10/21 04:25: White Blood Count 4.6, Red Blood Count 4.55, Hemoglobin 15.4, Hematocrit 45, Mean Corpuscular Volume 99, Mean Corpuscular Hemoglobin 34, Mean Corpuscular Hemoglobin Concent 34, Red Cell Distribution Width 11.9, Platelet Count 165, Mean Platelet Volume 10.1, Immature Granulocyte % (Auto) 0, Neutrophils (%) (Auto) 52, Lymphocytes (%) (Auto) 28, Monocytes (%) (Auto) 12, Eosinophils (%) (Auto) 7, Basophils (%) (Auto) 1, Neutrophils # (Auto) 2.4, Lymphocytes # (Auto) 1.3, Monocytes # (Auto) 0.6, Eosinophils # (Auto) 0.3, Basophils # (Auto) 0.0, Immature Granulocyte # (Auto) 0.0, Sodium Level 135, Potassium Level 4.2, Chloride Level 102, Carbon Dioxide Level 20L, Anion Gap 13, Blood Urea Nitrogen 12, Creatinine 0.73, Estimat Glomerular Filtration Rate 109, BUN/Creatinine Ratio 16, Glucose Level 108H, Calcium Level 9.2, Corrected Calcium 9.4, Phosphorus Level 3.4, Magnesium Level 1.7, Total Bilirubin 0.8, Aspartate Amino Transf (AST/SGOT) 22, Alanine Aminotransferase (ALT/SGPT) 27, Alkaline Phosphatase 113, Total Protein 7.1, Albumin 3.7 Radiology 11/08 CXR: IMPRESSION: 1. No acute pleuroparenchymal process. Assessment/Plan Assessment/Plan (1) Primary hypertension Status: Chronic Assessment & Plan: Started lisinopril per Cardiology (2) Typical atrial flutter Assessment & Plan: with severe RVR and concern for chance of degeneration into fatal arrhythmia, appreciate Cardiology recommendations. Stopped amiodarone drip and started sotalol, plan to send for ablation after initial work-up. 11/10- plan for cath this afternoon (3) Wide-complex tachycardia Status: Resolved Assessment & Plan: Noted in ER, resolved with amiodarone. (4) Supraventricular tachycardia Status: Acute (5) Cardiomyopathy Assessment & Plan: Stress test 10/29/21 with no evidence of ischemia, mild gl obal hypokinesis with EF 41%, initially nonischemic suspected, but due to severe arrhythmias, plan for cath per Dr. Jauregui this afternoon Qualifiers: Qualified Codes: I42.9 - Cardiomyopathy, unspecified (6) DVT prophylaxis Status: Acute Assessment & Plan: Rivaroxaban HIRO SEGURA MD Nov 10, 2021 08:57
--- NOTE | 2021-11-10 11:07 | Tele-ICU Progress Note ---
Subjective Date Seen by a Provider: Nov 10, 2021 Time Seen by a Provider: 11:06 Subjective/Events-last exam (Tele-ICU Physician , Progress Note ) Available chart/ vitals / labs / Images reviewed Video assessment done using teleICU camera, rest of exam as per RN Discussed with RN , EXAM PER RN Events overnight : remains in sinus rhythm on sotalol. Afebrile , 2L Consultants: cards A/P A flatter -as per cards - remains in sinus rhythm on sotalol - considered EP interbvention - ? transfer - xarelto ETOH ? - thiamine , ciwa Plans in collaboration with bedside consultants and IM MDs. Discussed with RN to reach out if any questions or concerns A total of 10minutes of critical care time was devoted to this patient today, required to treat and/or prevent further deterioration of critical care condition ( as above) . Sepsis Event Evaluation Height, Weight, BMI Height: 6'1.00" Weight: 260lbs. 0oz. [id number]; 30.63 BMI Method:Stated Exam Exam Patient acknowledged, consented, and participated in this virtual visit which was conducted using real time audio/video Vital Signs Date Time Temp Pulse Resp B/P (MAP) Pulse Ox O2 Delivery O2 Flow Rate FiO2 11/10/21 08:47 61 11/10/21 08:41 Nasal Cannula 2.00 11/10/21 08:00 36.3 11/10/21 08:00 60 7 115/74 93 Nasal Cannula 2.00 11/10/21 07:00 54 7 140/108 92 Nasal Cannula 2.00 11/10/21 06:00 52 18 132/98 94 Nasal Cannula 2.00 11/10/21 05:00 63 9 125/99 92 Nasal Cannula 2.00 11/10/21 04:00 61 17 106/78 92 Nasal Cannula 2.00 11/10/21 04:00 95 Nasal Cannula 2.00 11/10/21 03:00 61 19 120/84 93 Nasal Cannula 2.00 11/10/21 02:00 66 17 133/89 96 Nasal Cannula 2.00 11/10/21 01:12 64 8 94 Nasal Cannula 2.00 11/10/21 01:00 56 11 130/94 92 Room Air 11/10/21 01:00 60 11/10/21 00:00 62 21 117/80 92 Room Air 11/10/21 00:00 36.5 11/10/21 00:00 95 Nasal Cannula 2.00 11/09/21 23:05 65 12 145/100 95 Room Air 11/09/21 22:22 77 11/09/21 22:00 65 10 143/114 96 Room Air 11/09/21 21:00 73 23 152/102 94 Room Air 11/09/21 20:22 77 11/09/21 20:00 95 Nasal Cannula 2.00 11/09/21 20:00 79 10 150/97 95 Room Air 11/09/21 19:00 75 19 138/89 93 Room Air 11/09/21 19:00 75 11/09/21 18:00 67 9 142/101 93 Room Air 11/09/21 17:00 78 9 139/108 92 Room Air 11/09/21 16:00 75 13 164/129 94 Room Air 11/09/21 16:00 95 Nasal Cannula 2.00 11/09/21 15:00 76 14 144/98 93 Room Air 11/09/21 14:02 Nasal Cannula 2.00 11/09/21 14:00 77 38 149/88 92 Room Air 11/09/21 13:00 71 8 147/108 95 Room Air 11/09/21 13:00 73 11/09/21 12:00 69 18 143/94 94 Room Air 11/09/21 12:00 36.3 11/09/21 12:00 96 Nasal Cannula 2.00 I & O 11/10/21 07:00 Intake Total 2071.2 ml Output Total 2175 ml Balance -103.8 ml Height & Weight Height: 6'1.00" Weight: 260lbs. 0oz. [id number]; 30.63 BMI Method:Stated General Appearance: No Apparent Distress, WD/WN Neck: Full Range of Motion, Normal Inspection, Non Tender, Supple; No Carotid Bruit, No JVD Respiratory: Normal Breath Sounds, No Accessory Muscle Use, No Respiratory Distress Cardiovascular: No JVD, Normal Peripheral Pulses, Irregularly Irregular, Tachycardia Capillary Refill: Less Than 3 Seconds Gastrointestinal: normal bowel sounds, non tender, soft Extremity: Normal Capillary Refill, Normal Inspection, Non Tender, No Calf Tenderness, No Pedal Edema Neurologic/Psychiatric: Alert, Oriented x3, No Motor/Sensory Deficits, Normal Mood/Affect, 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
[2021-11-10] MEDS ORDERED: MIDAZOLAM 5 MG/5 ML (VERSED) VIAL ONE (13:21)
[2021-11-10] MEDS ORDERED: fentaNYL INJ 100 MCG/2 ML AMP ONE (13:21)
[2021-11-10] MEDS ORDERED: ADENOSINE 90 MG/30 ML (ADENOSCAN) VIAL IV ONE (14:20)
[2021-11-10] MEDS ORDERED: HEParin 1000 UNIT/ML (10ML VIAL) FOR BOLUS ONE (14:20)
[2021-11-10] MEDS ORDERED: morphine INJ 4 MG/ML 1 ML (VIAL/SYRINGE) IVP ONE (16:30)
--- NOTE | 2021-11-10 16:40 | CARDIAC CATHETERIZATION ---
DATE OF SERVICE: 11/10/2021 CARDIAC CATHETERIZATION REPORT The patient is a 51-year-old gentleman who has recently been diagnosed with the supraventricular tachycardia, which are suspected to be atrial flutter and he has had a rapid ventricular response from it. Echocardiography has shown cardiomyopathy with ejection fraction 30% to 35%. Cardiac catheterization was carried out today to evaluate for any significant coronary artery disease. DESCRIPTION OF PROCEDURE: He was brought to the cardiac catheterization laboratory in a fasting state. Right groin was prepared and draped in the usual sterile fashion. Lidocaine 1% using local anesthesia. Modified Seldinger technique was used to advance a 5-[place] sheath into the right femoral artery. A 5-[place] JL3.5 catheter was used for left coronary angiography, 5-[place] JR4 catheter was used for right coronary angiography, 5-[place] pigtail catheter was used for left heart catheterization and left ventricular angiography. We had carried out angiography of the right femoral artery through the sheath at the beginning of the procedure. At the end of the procedure, Mynx was used to achieve hemostasis. He tolerated the procedure well. HEMODYNAMICS: Left ventricular end-diastolic pressure following coronary angiography was 9 mmHg. There was no significant pressure gradient on pullback across the aortic valve. Ascending aortic pressure was 124/77 with a mean of 97 mmHg. CORONARY ANGIOGRAPHY: Left main coronary artery is free of significant disease. Left anterior descending artery had mild haziness at the ostium, but there did not appear to be any significant obstructive disease. Left circumflex artery was dominant and did not exhibit significant disease. Right coronary artery was nondominant and did not exhibit significant obstructive disease. Flow in the right coronary artery was somewhat sluggish. Fractional flow reserve measurement in the left anterior descending. Because of haziness in the ostial left anterior descending, we proceeded with measurement of fractional flow reserve across the lesion. We exchanged a sheath over a wire for a 6-[place] sheath. We used a 6-[place] JL3.5 guide catheter. A pressure wire was advanced across the lesion. Adenosine infusion was given at 140 mcg per kilogram per minute for 2 minutes and 45 seconds. Fractional flow reserve was 0.97, indicating hemodynamic nonsignificance of this lesion. LEFT VENTRICULAR ANGIOGRAPHY: Left ventricular angiography was carried out in the right anterior oblique projection. There is global hypokinesis of left ventricle. Ejection fraction is approximately 35%. CONCLUSIONS: 1. No significant obstructive coronary artery disease. Mild haziness is seen in the ostial left anterior descending, but fractional flow reserve across the lesion is 0.97, indicating hemodynamic nonsignificance. 2. Normal left ventricular end-diastolic pressure. 3. Impairment of global left ventricular systolic function with ejection fraction approximately 35%. Job ID: [id number] DocumentID: [id number] Dictated Date: 11/10/2021 15:17:37 Eyelet Punch Operator Date: 11/10/2021 16:39:24 Dictated By: JEREMIAS MCKENNA MD, MA, FACP, FACC,
[2021-11-10] MEDS: RIVAROXABAN 20 MG TABLET (XARELTO) PO SCH (17:15)
[2021-11-10] MEDS: oxyCODONE/APAP 5/325MG (PERCOCET 5) TABLET PO PRN ×2 (17:16→23:07)
[2021-11-11 05:35] LABS: BASOPHILS # (AUTO) 0.1 10^3/uL (0.0-0.1); BASOPHILS % (AUTO) 1 % (0-10); EOSINOPHILS # (AUTO) 0.4 10^3/uL (0.0-0.3); EOSINOPHILS % (AUTO) 6 % (0-10); HEMATOCRIT 46 % (40-54); HEMOGLOBIN 15.4 g/dL (13.3-17.7); LYMPHOCYTES # (AUTO) 1.4 10^3/uL (1.0-4.0); LYMPHOCYTES % (AUTO) 21 % (12-44); MEAN CORPUSCULAR HEMOGLOBIN 34 pg (25-34); MEAN CORPUSCULAR HGB CONC 34 g/dL (32-36); MEAN CORPUSCULAR VOLUME 100 fL (80-99); MEAN PLATELET VOLUME 10.3 fL (9.0-12.2); MONOCYTES # (AUTO) 0.6 10^3/uL (0.0-1.0); MONOCYTES % (AUTO) 9 % (0-12); NEUTROPHILS # (AUTO) 4.2 10^3/uL (1.8-7.8); NEUTROPHILS % (AUTO) 64 % (42-75); PLATELET COUNT 181 10^3/uL (130-400); WHITE BLOOD COUNT 6.6 10^3/uL (4.3-11.0)
[2021-11-11 05:45] LABS: ALBUMIN 3.6 GM/DL (3.2-4.5); POTASSIUM 4.3 MMOL/L (3.6-5.0)
[2021-11-11 05:46] LABS: CALCIUM 9.2 MG/DL (8.5-10.1)
[2021-11-11 05:48] LABS: TOTAL PROTEIN 7.3 GM/DL (6.4-8.2)
[2021-11-11 05:49] LABS: BILIRUBIN,TOTAL 0.3 MG/DL (0.1-1.0)
[2021-11-11 05:51] LABS: CREATININE SERUM 0.86 MG/DL (0.60-1.30); PHOSPHORUS 4.3 MG/DL (2.3-4.7)
[2021-11-11 05:55] LABS: MAGNESIUM 1.9 MG/DL (1.6-2.4)
[2021-11-11] MEDS: POTASSIUM CL 10MEQ/50ML IVPB 50 ML IV SCH (06:21)
[2021-11-11] MEDS: KCL 20 MEQ TAB (K-DUR) PO SCH (06:21)
[2021-11-11] MEDS: MAGNESIUM 1 GM/100 ML IVPB 100 ML IV SCH (06:21)
--- NOTE | 2021-11-11 08:35 | Cardiology Progress Note ---
Progress Note-Cardiology Events since last exam Date Seen by Provider: Nov 11, 2021 Time Seen by Provider: 08:34 Events since last exam I am following him due to atrial flutter and cardiomyopathy with moderate left ventricular systolic dysfunction. He underwent a cardiac catheterization on 11/10 which did not show any obstructive coronary artery disease. He was sitting up in bed in the ICU. He denies any chest discomfort, dyspnea at rest, palpitations, syncope, or ankle edema. He is awaiting transfer to [facility] for electrophysiology study and probable atrial flutter ablation. Certain portions of this document may have been dictated utilizing voice recognition technology. Inherent to this technology, typographical and grammatical errors may exist. As much as I am diligent to identify and correct these mistakes, some errors may remain in the document. Vitals Last set of Vitals Signs Vital Signs 11/11/21 11/11/21 11/11/21 11/11/21 04:10 08:00 08:45 09:37 Temp 37.0 Pulse 63 Resp 18 B/P (MAP) 116/79 Pulse Ox 94 O2 Delivery Nasal Cannula O2 Flow Rate 2.00 Labs Labs Laboratory Tests 11/11/21 05:15 Exam Vital Signs Vital Signs Date Time Temp Pulse Resp B/P (MAP) Pulse Ox O2 Delivery O2 Flow Rate FiO2 11/11/21 09:37 63 11/11/21 08:45 94 Nasal Cannula 2.00 11/11/21 08:00 18 11/11/21 08:00 37.0 11/11/21 04:10 116/79 Physical Exam General: Alert. No acute distress. Eye: No xanthelasma. HENT: Normocephalic. Neck: Jugular venous pressure does not appear elevated. Respiratory: Lungs are clear to auscultation. Respirations are non-labored. Breath sounds are equal. Symmetrical chest wall expansion. Cardiovascular: Normal rate. Regular rhythm. No murmur. No gallop. No edema. Gastrointestinal: Soft. Normal bowel sounds. Skin: Warm. Dry. Neurologic: Alert and oriented to person, place, time. Cranial nerves 3-11 grossly intact. Psychiatric: Cooperative. Appropriate mood & affect. Labs Laboratory Tests Test 11/11/21 05:15 Range/Units White Blood Count 6.6 4.3-11.0 10^3/uL Red Blood Count 4.57 4.30-5.52 10^6/uL Hemoglobin 15.4 13.3-17.7 g/dL Hematocrit 46 40-54 % Mean Corpuscular Volume 100 H 80-99 fL Mean Corpuscular Hemoglobin 34 25-34 pg Mean Corpuscular Hemoglobin Concent 34 32-36 g/dL Red Cell Distribution Width 12.1 10.0-14.5 % Platelet Count 181 130-400 10^3/uL Mean Platelet Volume 10.3 9.0-12.2 fL Immature Granulocyte % (Auto) 0 % Neutrophils (%) (Auto) 64 42-75 % Lymphocytes (%) (Auto) 21 12-44 % Monocytes (%) (Auto) 9 0-12 % Eosinophils (%) (Auto) 6 0-10 % Basophils (%) (Auto) 1 0-10 % Neutrophils # (Auto) 4.2 1.8-7.8 10^3/uL Lymphocytes # (Auto) 1.4 1.0-4.0 10^3/uL Monocytes # (Auto) 0.6 0.0-1.0 10^3/uL Eosinophils # (Auto) 0.4 H 0.0-0.3 10^3/uL Basophils # (Auto) 0.1 0.0-0.1 10^3/uL Immature Granulocyte # (Auto) 0.0 0.0-0.1 10^3/uL Sodium Level 137 135-145 MMOL/L Potassium Level 4.3 3.6-5.0 MMOL/L Chloride Level 102 98-107 MMOL/L Carbon Dioxide Level 21 21-32 MMOL/L Anion Gap 14 5-14 MMOL/L Blood Urea Nitrogen 15 7-18 MG/DL Creatinine 0.86 0.60-1.30 MG/DL Estimat Glomerular Filtration Rate 104 BUN/Creatinine Ratio 17 Glucose Level 119 H 70-105 MG/DL Calcium Level 9.2 8.5-10.1 MG/DL Corrected Calcium 9.5 8.5-10.1 MG/DL Phosphorus Level 4.3 2.3-4.7 MG/DL Magnesium Level 1.9 1.6-2.4 MG/DL Total Bilirubin 0.3 0.1-1.0 MG/DL Aspartate Amino Transf (AST/SGOT) 26 5-34 U/L Alanine Aminotransferase (ALT/SGPT) 30 0-55 U/L Alkaline Phosphatase 144 H 40-136 U/L Total Protein 7.3 6.4-8.2 GM/DL Albumin 3.6 3.2-4.5 GM/DL Diagnosis/Problems Diagnosis/Problems (1) Typical atrial flutter Assessment & Plan: He appears to be having typical atrial flutter with a rapid ventricular rate. He has remained in sinus rhythm on sotalol. We plan to transfer him to [facility] hopefully later today and the plan is to have him undergo an electrophysiology study and possible ablation tomorrow. We will continue Xarelto for stroke prophylaxis. (2) Supraventricular tachycardia Status: Acute Assessment & Plan: Unclear whether or not he has also been having supraventricular tachycardia. This can be evaluated at the time of his electrophysiology study later in the week. (3) Cardiomyopathy Assessment & Plan: He underwent a cardiac catheterization on 11/10 that did not show any significant coronary artery disease requiring revascularization. I I have started him on low-dose VONDA inhibitor. I had him on metoprolol succinate at home but since I started him on sotalol for the atrial arrhythmias, I will hold off on restarting metoprolol at this time. I am concerned the combination of metoprolol and sotalol could cause bradycardia. (4) Primary hypertension Status: Chronic Assessment & Plan: His blood pressure appears well controlled with lisinopril. (5) Cigarette smoker Assessment & Plan: He needs to quit smoking. He was counseled in this regard. Problem Qualifiers (1) Cardiomyopathy: Cardiomyopathy type: unspecified Qualified Codes: I42.9 - Cardiomyopathy, unspecified FEDE HAMMOND JR, MD Nov 11, 2021 08:35
[2021-11-11] MEDS: MULTIVIT W/MINERALS TAB (THERAGRAN M) PO SCH (09:33)
[2021-11-11] MEDS: ASPIRIN E.C. 81 MG (ECOTRIN) TAB PO SCH (09:33)
[2021-11-11] MEDS: lisINopril 5 MG (PRINIVIL) TABLET PO SCH (09:33)
[2021-11-11] MEDS: SOTALOL 80 MG (BETAPACE) TAB PO SCH (09:37)
[2021-11-11] MEDS: NICOTINE 21 MG (NICODERM) PATCH TD SCH (09:38)
[2021-11-11] MEDS: PATCH REMOVAL TP SCH (09:38)
[2021-11-11] MEDS: THIAMINE INJECTION 100 MG, FOLIC ACID INJECTION 1 MG in NS (IVPB) 50 ML IV SCH (11:10)
[2021-11-11 13:45] VITALS: BP 104/75
--- NOTE | 2021-11-11 15:08 | Discharge Summary ---
Discharge Summary Hospital Course Problems/Diagnosis: (1) Primary hypertension Status: Chronic Assessment & Plan: Started lisinopril per Cardiology (2) Typical atrial flutter Assessment & Plan: with severe RVR and concern for chance of degeneration into fatal arrhythmia, appreciate Cardiology recommendations. Stopped amiodarone drip and started sotalol, plan to send for ablation after initial work-up. 11/10- cath showed non-obstructive disease and EF 35%. Transferred to [facility] per Dr. Jauregui for EP. (3) Wide-complex tachycardia Status: Resolved Resolution Date/Time: 11/09/21 @ 10:32 Assessment & Plan: Noted in ER, resolved with amiodarone. (4) Supraventricular tachycardia Status: Acute (5) Cardiomyopathy Assessment & Plan: Stress test 10/29/21 with no evidence of ischemia, mild global hypokinesis with EF 41%, initially nonischemic suspected, but due to severe arrhythmias cath was done prior to transfer. Qualifiers: Qualified Codes: I42.9 - Cardiomyopathy, unspecified Hospital Course Date of Admission: Nov 09, 2021 at 00:15 Admission Diagnosis : Family Physician/Provider: Guanakito Toro MD Date of Discharge: 11/11/21 Discharge Diagnosis: See problem list Hospital Course: See problem list Labs and Pending Lab Test: Laboratory Tests 11/11/21 05:15: White Blood Count 6.6, Red Blood Count 4.57, Hemoglobin 15.4, Hematocrit 46, Mean Corpuscular Volume 100H, Mean Corpuscular Hemoglobin 34, Mean Corpuscular Hemoglobin Concent 34, Red Cell Distribution Width 12.1, Platelet Count 181, Mean Platelet Volume 10.3, Immature Granulocyte % (Auto) 0, Neutrophils (%) (Auto) 64, Lymphocytes (%) (Auto) 21, Monocytes (%) (Auto) 9, Eosinophils (%) (Auto) 6, Basophils (%) (Auto) 1, Neutrophils # (Auto) 4.2, Lymphocytes # (Auto) 1.4, Monocytes # (Auto) 0.6, Eosinophils # (Auto) 0.4H, Basophils # (Auto) 0.1, Immature Granulocyte # (Auto) 0.0, Sodium Level 137, Potassium Level 4.3, Chloride Level 102, Carbon Dioxide Level 21, Anion Gap 14, Blood Urea Nitrogen 15, Creatinine 0.86, Estimat Glomerular Filtration Rate 104, BUN/Creatinine Ratio 17, Glucose Level 119H, Calcium Level 9.2, Corrected Calcium 9.5, Phosphorus Level 4.3, Magnesium Level 1.9, Total Bilirubin 0.3, Aspartate Amino Transf (AST/SGOT) 26, Alanine Aminotransferase (ALT/SGPT) 30, Alkaline Phospha tase 144H, Total Protein 7.3, Albumin 3.6 Microbiology 11/09/21 MRSA Screen - Final, Complete MRSA not isolated Home Meds Active Reported Aleve (Naproxen Sodium) 220 Mg Tablet 220-440 Mg PO BID PRN Metoprolol Succinate 50 Mg Tab.er.24h 50 Mg PO DAILY Xarelto (Rivaroxaban) 20 Mg Tablet 20 Mg PO DAILY Assessment/Pt DC Instructions Follow up with primary physician after discharge from [place]. Discharge Physical Examination Allergies: Coded Allergies: carisoprodol (Verified Allergy, Unknown, Hives, 04/22/20) General Appearance: No Apparent Distress, WD/WN Respiratory: Wheezing Cardiovascular: Regular Rate, Rhythm, No Murmur Skin: Normal Color, Warm/Dry Neurologic/Psychiatric: Alert, Normal Mood/Affect HIRO SEGURA MD Nov 11, 2021 15:08
== END 2021-11-11 13:45 | disposition short-term general hospital (02) | DRG 287 ==
LOC: EDUNIT# 23:11 → ER 23:14 → ICU 11-09 00:15 → 4TH 11-11 09:51
PROVIDERS: ADMIT Family Medicine; ATTEND Family Medicine
PROC: 4A023N7 Measurement of Cardiac Sampling and Pressure, Left Heart, Percutaneous Approach (ICD-10-PCS; principal; 2021-11-10)
PROC: B2111ZZ Fluoroscopy of Multiple Coronary Arteries using Low Osmolar Contrast (ICD-10-PCS; 2021-11-10)
PROC: B2151ZZ Fluoroscopy of Left Heart using Low Osmolar Contrast (ICD-10-PCS; 2021-11-10)
PROC: 4A033BC Measurement of Arterial Pressure, Coronary, Percutaneous Approach (ICD-10-PCS; 2021-11-10)
DX: I48.92 Unspecified atrial flutter (principal); I47.1 Supraventricular tachycardia; I42.9 Cardiomyopathy, unspecified; I48.91 Unspecified atrial fibrillation; I10 Essential (primary) hypertension; F17.210 Nicotine dependence, cigarettes, uncomplicated; F12.90 Cannabis use, unspecified, uncomplicated; F41.9 Anxiety disorder, unspecified; Z72.89 Other problems related to lifestyle; Z79.01 Long term (current) use of anticoagulants; Z88.8 Allergy status to other drugs, medicaments and biological substances
CPT/HCPCS: 36415; 71045; 80053; 80320; 81000; 82550; 82553; 83735; 83874; 83880; 84100; 84484; 85025; 85610; 85730; 87081; 93005; 93041; 93458

== ENCOUNTER → 2021-11-26 | Outpatient (CLI) | payer OTHER ==
[~2021-11-26] MED LIST changes: +METO50TA7 PO; +NAPR220T66 PO; +RIVA20TA PO
[2021-11-26 11:13] LABS: CALCIUM 9.4 MG/DL (8.5-10.1); CREATININE SERUM 0.77 MG/DL (0.60-1.30); POTASSIUM 4.3 MMOL/L (3.6-5.0)
== END ==
LOC: LAB 10:37
PROVIDERS: ATTEND Internal Medicine Cardiovascular Disease
DX: I48.3 Typical atrial flutter (principal); I48.0 Paroxysmal atrial fibrillation; I47.1 Supraventricular tachycardia; I42.9 Cardiomyopathy, unspecified; I10 Essential (primary) hypertension; E66.9 Obesity, unspecified; F17.210 Nicotine dependence, cigarettes, uncomplicated
CPT/HCPCS: 36415; 80048

== ENCOUNTER → 2022-06-01 | Outpatient (CLI) | payer OTHER | LOC: CARD 08:26 | PROVIDERS: ATTEND Internal Medicine Cardiovascular Disease | DX: I42.9 Cardiomyopathy, unspecified (principal) | CPT/HCPCS: 93306 ==

== ENCOUNTER 2022-12-04 18:28 | Emergency (ER) | payer OTHER ==
[2022-12-04 19:20] VITALS: BP 131/83
[2022-12-04] MEDS ORDERED: HYDROcodone/APAP 5 MG/325 MG (LORTAB) TAB PO ONE (19:30)
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
--- NOTE | 2022-12-04 20:28 | Diagnostic Imaging Report ---
INDICATION: Left hip pain. FINDINGS: There are osteoarthritic changes present at the left hip with joint space loss and acetabular subchondral sclerosis. There is a small acetabular osteophyte. There is no acute fracture. There is no femoral head collapse or osteonecrosis. There is no suspicious bone lesion. IMPRESSION: Moderate left hip osteoarthritic changes without acute process. Dictated by: Dictated on workstation # [id number]
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
[2022-12-04] MEDS ORDERED: ACHD5005 PO ×2 (21:00→21:08)
== END 2022-12-04 21:06 | disposition home or self-care (01) ==
LOC: EDUNIT# 18:28 → ER 18:30
DX: M25.512 Pain in left shoulder (principal); M25.552 Pain in left hip; M54.50 Low back pain, unspecified; M54.2 Cervicalgia; Z79.01 Long term (current) use of anticoagulants; Z28.310 Unvaccinated for COVID-19; V89.2XXA Person injured in unspecified motor-vehicle accident, traffic, initial encounter; Y92.481 Parking lot as the place of occurrence of the external cause
CPT/HCPCS: 70450; 72125; 72131; 73030; 73502